=== PATIENT | male | born 1935 | race Caucasian/White ===

== ENCOUNTER 2018-06-10 19:03 | Inpatient (IN) ==
[2018-06-10] MEDS ORDERED: Pantoprazole 40 MG VIAL IVP ONE (19:26)
[2018-06-10] MEDS ORDERED: 0.9 % Sodium Chloride 1,000 ML IVC ONE (19:26)
--- NOTE | 2018-06-10 19:29 | Emergency Department Note ---
Disposition Clinical Impression: Melena, Elevated troponin Chest pain Qualifiers: Chest pain type: unspecified Qualified Code(s): R07.9 - Chest pain, unspecified GI bleed Qualifiers: GI bleed type/associated pathology: melena Qualified Code(s): K92.1 - Melena RLL pneumonia Qualifiers: Pneumonia type: due to unspecified organism Qualified Code(s): J18.1 - Lobar pneumonia, unspecified organism Anemia Qualifiers: Anemia type: unspecified type Qualified Code(s): D64.9 - Anemia, unspecified Disposition: Admitted As Inpatient Condition: Undetermined Time of Disposition: 20:48 General Adult HPI - General Chief complaint: ED GI Bleed Stated complaint: GI bleed Time Seen by Provider: 06/10/18 19:25 Source: patient, family, EMS Mode of arrival: EMS Limitations: no limitations Nursing Notes Reviewed: Yes Vital Signs Reviewed: Yes - History of Present Illness HPI Narrative: 83-year-old male with history of CAD, CABG 3 vessels, arrives to the emergency department with complaint of GI bleeding as well as chest pain or shortness of breath. The patient states that he feels short of breath and was having some chest pressure over the course the past 24 hours. The patient also states that he noted some black stools earlier today. The patient does have a history of GI bleed where he had a scope roughly 1 month ago with her unable to evaluate why he was bleeding. The patient was on Eliquis at that time. The patient was on L Oquist for previous DVTs. The patient denies any other complaints at this time and was a transfer from the [facility]. It was noted that the patient has been having increasing yellow sputum as well as cough. The patient states this is similar to previous pneumonias in the past. Chest x-ray at the [facility] reveals that a concerning finding for right lower lobe pneumonia. The patient has been noted to have a small amount chills. Patient was also noted to have an elevated troponin which is new for the patient. In addition the patient's hemoglobin is lower than it was roughly 10 days ago. The patient denies any active chest pain at this time. He is resting comfortably in the room. He is noted to be not hypoxic but he was noted to be on 2 L nasal cannula. Pain Scale: 2 - Related Data Home Medications Medication Instructions Recorded Confirmed Allopurinol [Zyloprim] 300 mg PO DAILY 05/29/18 06/10/18 Aspirin [Adult Aspirin Regimen] 81 mg PO DAILY 05/29/18 06/10/18 Atorvastatin [Lipitor] 10 mg PO HS 05/29/18 06/10/18 Cholecalciferol (D-3) [Vitamin D] 1,000 unit PO DAILY 05/29/18 06/10/18 Furosemide [Lasix] 20 mg PO DAILY 05/29/18 06/10/18 Metformin HCl [Glucophage] 1,000 mg PO BID 05/29/18 06/10/18 Allergies Allergy/AdvReac Type Severity Reaction Status Date / Time diazepam [From Valium] Allergy Intermediate Unresponsiv Verified 06/10/18 19:36 e Penicillins Allergy Mild Hives Verified 06/10/18 19:36 adhesive tape Allergy Hives Verified 06/10/18 19:36 apixaban Allergy Anaphylaxis Verified 06/10/18 19:36 budesonide Allergy Anaphylaxis Verified 06/10/18 19:36 secobarbital Allergy Anaphylaxis Verified 06/10/18 19:36 albuterol AdvReac Flushing Verified 06/10/18 19:36 All systems ED: reviewed and negative except as stated. Constitutional: Denies: fever, chills, weakness ENT ED: Denies: congestion Cardiovascular: Reports: chest pain. Denies: dyspnea on exertion, edema Respiratory: Reports: cough, dyspnea, sputum production. Denies: wheezes, hemoptysis Gastrointestinal: Denies: abdominal pain, nausea, vomiting Genitourinary: Denies: urgency, dysuria Musculoskeletal: Denies: back pain Integumentary: Denies: rash Neurological: Denies: headache Past Medical History - Past Medical History Attestation: Yes The following information was validated with the patient. Source: patient, old records reviewed Medical history: Reports: arthritis, cancer, COPD, coronary artery disease, DVT , diabetes, GERD, glaucoma, hyperlipidemia, hypertension, myocardial infarction , peripheral artery disease, TIA, other Surgical history: Reports: coronary bypass (CABG), pacemaker Psychiatric history: Reports: depression - Social History Smoking Status: Former smoker Smokeless Tobacco Status: No Alcohol use: Reports: rarely Drug use: Reports: none Physical Exam - General Limitations: no limitations General appearance: alert, in no apparent distress - Head Head exam: atraumatic, normocephalic, normal inspection - Eye Eye exam: Present: normal appearance, PERRL, EOMI - ENT ENT exam: normal exam, normal oropharynx, mucous membranes moist - Neck Neck exam: Present: normal inspection - Chest Chest inspection: Present: normal inspection - Respiratory Respiratory exam: Present: normal lung sounds bilaterally - Cardiovascular Cardiovascular exam: Present: regular rate, normal rhythm, normal heart sounds - Abdominal Exam Abdominal exam: Present: soft, Non-Tender. Absent: tenderness, distention, guarding, rebound, rigidity, pulsatile mass, hernia - Extremities Exam Extremities exam: Present: normal inspection, full ROM. Absent: tenderness, pedal edema - Neurological Exam Neurological exam: Present: alert, oriented X3 - Skin Skin exam: Present: warm, dry, intact, normal color Course - Consultations Consultation #1: We spoke with Dr. martin in endoscopy who stated that he will be consulted on the patient. No further recommend edition at this time other than discontinuing the patient's antiplatelets. Time: 20:27 Vital Signs Temperature 97.9 F 06/10/18 19:10 Pulse Rate 98 06/10/18 19:10 Respiratory Rate 20 06/10/18 19:10 Blood Pressure 128/84 06/10/18 19:10 O2 Sat by Pulse Oximetry 100 06/10/18 19:10 Temperature 97.5 F L 06/10/18 21:59 Pulse Rate 96 06/10/18 21:59 Respiratory Rate 16 06/10/18 21:59 Blood Pressure 123/76 06/10/18 21:59 O2 Sat by Pulse Oximetry 98 06/10/18 22:55 Oxygen Delivery Oxygen Delivery Nasal Cannula Medical Decision Making - [facility] Narrative Medical decision making narrative: Patient workup in the emergency department demonstrates anemia. The patient is expressing GI bleed. He is no longer any anticoagulants. The patient's troponin was noted be elevated here in the emergency department as well as the [facility]. The patient will be admitted to the hospital at this time. He was also treated with Levaquin due to concern for possible right lower lobe pneumonia noted on chest x-ray from outlying facility with his concomitant sputum production on physical examination and past history. The patient was discussed with Dr. Barajas who is director economic for endoscopy. He will be consulted on the patient. The patient is to be admitted to the hospitalist, accepted by Dr. Field. - Medical Records Medical records reviewed: Yes I reviewed the patient's medical records. - Lab Data Lab results reviewed: Yes I reviewed the patient's lab results. Result diagrams: 06/10/18 21:35 Lab Results 06/10/18 06/10/18 06/10/18 Range/Units 19:25 19:25 19:49 WBC (4.3-11.1) K/mcL RBC (4.19-5.50) M/mcL Hgb 7.3 L (12.9-16.9) g/dL Hct 24.2 L (37.5-50.1) % MCV (83.0-100.0) fL MCH (28.0-33.3) pg MCHC (31.6-35.5) g/dL RDW (11.5-14.5) % Plt Count (140-400) K/mcL MPV (9.4-12.4) fL Immature Gran % (0-4) % Seg Neutrophils % % Lymphocytes % % Monocytes % % Eosinophils % % Basophils % % Neutrophils # (1.6-8.9) K/mcL Lymphocytes # (0.6-4.6) K/mcL Monocytes # (0.0-1.3) K/mcL Eosinophils # (0.0-0.6) K/mcL Basophils # (0.0-0.2) K/mcL Troponin I 0.10 H* (< 0.04) ng/mL Blood Type AB POSITIVE Antibody Screen NEGATIVE 06/10/18 06/10/18 Range/Units 21:35 21:35 WBC 6.9 (4.3-11.1) K/mcL RBC 3.22 L (4.19-5.50) M/mcL Hgb 7.3 L (12.9-16.9) g/dL Hct 24.6 L (37.5-50.1) % MCV 76.4 L (83.0-100.0) fL MCH 22.7 L (28.0-33.3) pg MCHC 29.7 L (31.6-35.5) g/dL RDW 17.0 H (11.5-14.5) % Plt Count 178 (140-400) K/mcL MPV 10.1 (9.4-12.4) fL Immature Gran % 0.1 (0-4) % Seg Neutrophils % 72.5 % Lymphocytes % 16.5 % Monocytes % 8.8 % Eosinophils % 1.8 % Basophils % 0.3 % Neutrophils # 5.0 (1.6-8.9) K/mcL Lymphocytes # 1.1 (0.6-4.6) K/mcL Monocytes # 0.6 (0.0-1.3) K/mcL Eosinophils # 0.1 (0.0-0.6) K/mcL Basophils # 0.0 (0.0-0.2) K/mcL Troponin I 0.08 H* (< 0.04) ng/mL Blood Type Antibody Screen - EKG Data EKG #1 EKG attestation: Yes I reviewed and interpreted this EKG. EKG results narrative: Heart rate 104 beats for minute. Sinus tachycardia. Right bundle branch block noted. Nonspecific ST changes noted from EKG on 05/29/2018. No ST elevation or ST depression noted. Attestation Statement - Attestation Attestation: Dr Foreman note: Pt seen in conjunction w/ Resident DR Gordon; please see his charting for complete documentation; I agree w/ pt's treatment and disposition and spent face to face time w/ the pt; no indication for add'l treatment or eval @ this time; specialists informed of findings and hgb; pt is typed and crossed; improving Troponin per our lab; no chest pain at the time of our admission; vitals stable on admission;
[2018-06-10 20:07] LABS: Hematocrit 24.2 % (37.5-50.1); Hemoglobin 7.3 g/dL (12.9-16.9)
[2018-06-10] MEDS ORDERED: Levofloxacin 750 MG/150 ML 750 MG/150 ML BAG IVPB ONE (20:39)
[2018-06-10] MEDS ORDERED: Naloxone 0.4 MG/ML INJ IVP PRN (20:51)
[2018-06-10] MEDS ORDERED: GuaiFENesin Liq 200 MG/10 ML UDC PO PRN (21:27)
[2018-06-10] MEDS ORDERED: Benzonatate 100 MG CAPSULE PO PRN (21:28)
--- NOTE | 2018-06-10 21:39 | Internal Med History&Physical ---
Date of Encounter: 06/11/18 Time of Encounter: 21:30 Internal Medicine - H&P: HPI Chief complaint: Black stools today, shortness of breath History of present illness: Mr. Llanes is a 83 year old male with pmh of CAd, CABGx3, GI bleed, DVT on anticoagulation but stopped about a month ago due to GI bleed, post nasal drip, presenting with complaints of shortness of breath and chest pressure of about 24 -48hrs duration> patient notes he typically has a sensation of his bronchioles tightening up due to the fact that he has post nasal drip and this discomfort is usually relieved by benadryl and robitussin. He typically attributes this to his post nasal drip. He also notes he had dark stools about a month ago and was scoped at the [place] but says the source of his bleeding could not be located. He presented today with shortness of breath, admits to mild coughing, denies any history of COPD. He also noted dark stools today of about 2 episodes. In the ER, his hemoglobin was noted to be 7.3 down from 9.1 on his last discharge. [facility] also showed findings suspicious for pneumonia Past Med Surg Social Fam HX - Past Medical History Medical history: arthritis, cancer, COPD, coronary artery disease, DVT, diabetes , GERD, glaucoma, hyperlipidemia, hypertension, myocardial infarction, peripheral artery disease, TIA, other Additional medical history: MRSA. Neoplasm of ascending colon Psychiatric history: depression - Past Surgical History Surgical History: coronary bypass (CABG), pacemaker Additional surgical history: [place] Filter, fem pop right leg, broken left ankle, bone spur and cyst left foot, neck and back surgeries - Social History Smoking Status: Former smoker Smokeless Tobacco Status: No Alcohol use: rarely Drug use: none - Family History Father Adopted: No Family Member Ethnicity: Non- Living Status: Hx Family Cardiac Disorders: Yes Hx Family Respiratory Disorders: No Hx Family Cancer: No Hx Family GI Disorders: No Hx Family Endocrine Disorder: No Hx Family Neuromuscular Disorders: No Hx Family Neurologic Disorders: No Hx Family HEENT Disorders: No Hx Family Autoimmune Disorders: No Mother Family Member Ethnicity: Non- Living Status: Hx Family Cardiac Disorders: Yes Internal Medicine - H&P: Meds Allopurinol [Zyloprim] 300 mg PO DAILY 05/29/18 [History] Aspirin [Adult Aspirin Regimen] 81 mg PO DAILY 05/29/18 [History] Atorvastatin [Lipitor] 10 mg PO HS 05/29/18 [History] Cholecalciferol (D-3) [Vitamin D] 1,000 unit PO DAILY 05/29/18 [History] Furosemide [Lasix] 20 mg PO DAILY 05/29/18 [History] Metformin HCl [Glucophage] 1,000 mg PO BID 05/29/18 [History] 3 Allergy/AdvReac Type Severity Reaction Status Date / Time diazepam [From Valium] Allergy Intermediate Unresponsiv Verified 06/10/18 19:36 e Penicillins Allergy Mild Hives Verified 06/10/18 19:36 adhesive tape Allergy Hives Verified 06/10/18 19:36 apixaban Allergy Anaphylaxis Verified 06/10/18 19:36 budesonide Allergy Anaphylaxis Verified 06/10/18 19:36 secobarbital Allergy Anaphylaxis Verified 06/10/18 19:36 albuterol AdvReac Flushing Verified 06/10/18 19:36 All Systems PM: A 10-system review of systems was performed and is negative for pertinent findings except as documented above in the HPI. - Constitutional Constitutional: no chills, no fever(s), no night sweats - EENT Eyes: no change in vision, no discharge, no pain, no photophobia Ears: no ear discharge, no ear pain, no tinnitus Nose, mouth and throat: no dysphagia, no nasal discharge, no neck pain, no sore throat - Cardiovascular Cardiovascular ROS IM: no chest pain, no diaphoresis, no dyspnea, no lightheadedness, no palpitations, no syncope - Respiratory Respiratory: dyspnea, no cough, no wheezing, no excessive phlegm production - Gastrointestinal Gastrointestinal: melena, no abdominal pain, no diarrhea, no hematemesis, no hematochezia, no nausea, no vomiting - Musculoskeletal Musculoskeletal ROS IM: no numbness, no tingling - Integumentary Integumentary IM: no rash, no unusual bruising - Neurological Neurological ROS: no confusion, no convulsions, no focal weakness, no numbness, no tingling, no tremor(s) - Hematologic/Lymphatic Hematologic/Lymphatic: no easy bruising - Constitutional Vitals: Temp Pulse Resp BP Pulse Ox 97.9 F 105 18 121/81 100 06/10/18 19:10 06/10/18 21:15 06/10/18 21:15 06/10/18 21:15 06/10/18 21:15 - Head Head exam: Present: atraumatic, normocephalic - Eye Eye exam: Present: PERRL, conjuntiva pink, sclera anicteric Pupils: Present: PERRL - Neck Neck exam general surgery: Present: supple, trachea midline. Absent: lymphadenopathy - Respiratory Respiratory exam: Present: CTAB. Absent: accessory muscle use, rales, rhonchi, wheezes - Cardiovascular Cardiovascular exam: Present: RRR, +S1, +S2. Absent: diastolic murmur, gallop, rubs, systolic murmur - GI/Abdominal GI/Abdominal exam: Present: normal bowel sounds, soft, no peritoneal signs. Absent: distended, tenderness - Extremities Exam Extremities exam: Present: warm, radial pulses palpable and symmetrical. Absent : calf tenderness, cyanotic, pedal edema - Neurological Exam Neurological exam: Present: CN II-XII intact, oriented X3, no focal deficits. Absent: pronater drift, facial droop, speech deficit - Skin Skin exam: Present: dry, intact Internal Med - H&P Results - Labs CBC & Chem 7: 06/11/18 03:14 06/11/18 03:14 - Assessment and plan (1) Acute upper gastrointestinal bleeding Current Visit: Yes Status: Acute Assessment and plan: Pt had 2 episodes of dark stools with drop in hemoglobin from baseline. Hemoglobin dropped from 9.1 to 7.3 in about 2 weeks. Start on protonix BID. Montior CBC q 12hrs. Will hydrate cautiously in light of history of low EF of 50 %. Hold aspirin (2) Community acquired pneumonia Current Visit: Yes Status: Acute Assessment and plan: CXR from [place] showed pneumonia. Repeat CXR, start on levaquin, obtain blood cultures Qualifiers: Laterality: unspecified laterality Qualified Code(s): J18.9 - Pneumonia, unspecified organism (3) Elevated troponin Current Visit: Yes Status: Acute Assessment and plan: Likely demand ischemia. Trend troponins. (4) Diabetes Current Visit: No Status: Acute Assessment and plan: Will start on sliding scale. Monitor fingersticks Qualifiers: Qualified Code(s): E11.9 - Type 2 diabetes mellitus without complications (5) CAD (coronary artery disease) Current Visit: No Status: Acute Assessment and plan: CAD s/p CABG. Hold aspirin. Continue statin Qualifiers: Coronary Disease-Associated Artery/Lesion type: unspecified vessel or lesion type [place] vs. transplanted heart: [place] heart Associated angina: angina presence unspecified Qualified Code(s): I25.10 - Atherosclerotic heart disease of [place] coronary artery without angina pectoris (6) CHF (congestive heart failure) Current Visit: No Status: Acute Assessment and plan: Has diastolic CHF with Ef of 50%. Hold lasix due to borderline hypotension and tachycardia Qualifiers: Heart failure type: diastolic Heart failure chronicity: acute on chronic Qualified Code(s): I50.33 - Acute on chronic diastolic (congestive) heart failure (7) DVT prophylaxis Current Visit: No Status: Acute Assessment and plan: SCDS (8) Coughing Current Visit: Yes Status: Acute Assessment and plan: With history of post nasal drip. On benadryl, tesselon perles and benadryl prn - Time Spent With Patient Total time spent is greater than 50% in coordination of care (as documented) at patient's floor/unit and/or counseling patient:
[2018-06-10] MEDS ORDERED: Ipratropium/Albuterol Neb 3 ML IH PRN (21:56)
[2018-06-10] MEDS ORDERED: 0.9 % Sodium Chloride 1,000 ML IVC SCH (22:00)
[2018-06-10] MEDS ORDERED: *HR* Dextrose 50 % in Water (Syg) 50 ML SYRINGE IVP PRN (22:00)
[2018-06-10] MEDS ORDERED: Dextrose Gel 15 GM/37.5 ML TUBE PO PRN ×2 (22:00)
[2018-06-10] MEDS ORDERED: D5% in Water 1,000 ML IVC PRN (22:00)
[2018-06-10 22:22] LABS: Basophils % 0.3 %; Eosinophils # 0.1 K/mcL (0.0-0.6); Eosinophils % 1.8 %; Hematocrit 24.6 % (37.5-50.1); Hemoglobin 7.3 g/dL (12.9-16.9); Immature Granulocytes % 0.1 % (0-4); Lymphocytes # 1.1 K/mcL (0.6-4.6); Lymphocytes % 16.5 %; Mean Corpuscular HGB Conc 29.7 g/dL (31.6-35.5); Mean Corpuscular Hemoglobin 22.7 pg (28.0-33.3); Mean Corpuscular Volume 76.4 fL (83.0-100.0); Mean Platelet Volume 10.1 fL (9.4-12.4); Monocytes # 0.6 K/mcL (0.0-1.3); Monocytes % 8.8 %; Platelet Count 178 K/mcL (140-400); Red Blood Count 3.22 M/mcL (4.19-5.50); Segmented Neutrophils % 72.5 %
[2018-06-10] MEDS: Insulin LISPRO 300 UNITS/3 ML VIAL SQ SCH (22:49)
[2018-06-11 04:02] LABS: Basophils % 0.6 %; Eosinophils # 0.1 K/mcL (0.0-0.6); Eosinophils % 1.6 %; Hematocrit 24.2 % (37.5-50.1); Hemoglobin 7.1 g/dL (12.9-16.9); Immature Granulocytes % 0.4 % (0-4); Lymphocytes # 0.9 K/mcL (0.6-4.6); Lymphocytes % 18.1 %; Mean Corpuscular HGB Conc 29.3 g/dL (31.6-35.5); Mean Corpuscular Hemoglobin 22.3 pg (28.0-33.3); Mean Corpuscular Volume 76.1 fL (83.0-100.0); Mean Platelet Volume 10.6 fL (9.4-12.4); Monocytes # 0.4 K/mcL (0.0-1.3); Monocytes % 8.7 %; Neutrophils # 3.5 K/mcL (1.6-8.9); Platelet Count 172 K/mcL (140-400); Red Blood Count 3.18 M/mcL (4.19-5.50); Red Cell Distribution Width 17.1 % (11.5-14.5); Segmented Neutrophils % 70.6 %
[2018-06-11 04:09] LABS: INR 1.2; Prothrombin Time 13.4 Seconds (9.4-12.1)
[2018-06-11 04:15] LABS: BUN/Creatinine Ratio 16 (6-26); Blood Urea Nitrogen 16 mg/dL (8-23); Carbon Dioxide 23 mEq/L (23-29); Chloride 108 mEq/L (98-107); Glucose 171 mg/dL (70-105); Osmolality,Calculated 289 (280-300); Phosphorous 3.3 mg/dL (2.7-4.5); Potassium 4.7 mEq/L (3.5-5.1); Sodium 137 mEq/L (136-145); eGFR For Non-African Americans > 60 (> 60)
[2018-06-11] MEDS: Pantoprazole 40 MG VIAL IVP SCH ×2 (04:59→17:00)
[2018-06-11] MEDS ORDERED: Furosemide 40 MG/4 ML VIAL IVP ONE (07:39)
[2018-06-11] MEDS ORDERED: Furosemide 20 MG TABLET PO SCH (08:00)
[2018-06-11] MEDS: Cholecalciferol (D-3) 1,000 UNIT TABLET PO SCH (08:01)
[2018-06-11] MEDS: Insulin LISPRO 300 UNITS/3 ML VIAL SQ SCH ×4 (08:03→22:05)
[2018-06-11] MEDS ORDERED: 0.9 % Sodium Chloride 250 ML ONE ×2 (08:48→13:32)
[2018-06-11 08:49] LABS: Basophils % 0.5 %; Eosinophils # 0.1 K/mcL (0.0-0.6); Eosinophils % 1.8 %; Hematocrit 24.4 % (37.5-50.1); Hemoglobin 7.3 g/dL (12.9-16.9); Immature Granulocytes % 0.3 % (0-4); Lymphocytes % 15.9 %; Mean Corpuscular HGB Conc 29.9 g/dL (31.6-35.5); Mean Corpuscular Hemoglobin 22.1 pg (28.0-33.3); Mean Corpuscular Volume 73.9 fL (83.0-100.0); Mean Platelet Volume 9.4 fL (9.4-12.4); Monocytes # 0.5 K/mcL (0.0-1.3); Monocytes % 7.9 %; Neutrophils # 4.6 K/mcL (1.6-8.9); Platelet Count 172 K/mcL (140-400); Red Cell Distribution Width 17.3 % (11.5-14.5); Segmented Neutrophils % 73.6 %
[2018-06-11] MEDS ORDERED: Aspirin Enteric Coated 81 MG Tablet PO SCH (09:00)
--- NOTE | 2018-06-11 12:03 | Internal Med Progress Note ---
Hospitalist Progress Note - Encounter Date of Encounter: 06/11/18 Time of Encounter: 12:01 - Subjective Interval History: 83 M with medical history of diastolic CHF, chronic elevated troponin, atrial flutter, coronary artery disease not on anticoagulation due to previous GI bleed , DVT He is admitted and being managed for acute on chronic anemia likely secondary to GI bleed, COPD exacerbation and pulmonary edema, as well as pneumonia. The patient has symptomatic anemia presented with shortness of breath, and chest pressure with hemoglobin dropped to 7.3 from 9.1 on his last discharge Endorsed passage of black stools, GI has been consulted by the admitting team. My time of evaluation, he remains tachycardic blood pressure is low normal He denies new complaints. - Exam Vitals: Temp Pulse Resp BP Pulse Ox 98.1 F 114 16 122/74 97 06/11/18 10:59 06/11/18 10:59 06/11/18 10:59 06/11/18 10:59 06/11/18 10:59 Exam: VSS, HR 105. BP WNL Gen: not in any form of distress Neuro: No focal deficits HEENT: Moist oral mucosa, anicteric, clinically pale, no cyanosis Chest: Bibasilar crackles, no wheezing, no rhonchi Heart: S1, S2 only, no m/g/r, no JVD Abdomen: Soft, not tender, no palpably enlarged organs Extremities: No edema Skin: RLE loera rash, non-weeping, [id number] patient "this is diabetic sugar rash" - Assessment and Plan (1) Elevated troponin Current Visit: Yes Status: Chronic Assessment and Plan: Likely demand ischemia. Trend troponins. Adynamic and at 0.08, continue to monitor (2) CHF (congestive heart failure) Current Visit: Yes Status: Acute Assessment and Plan: Has diastolic CHF with Ef of 50%. CXR with intersititial edema BNP not done in this admission Patient has crackles on exam and is requiring supplemental O2 Will resume home lasix IV Additional lasix given inbetween blood transfusions Continue to monitor (3) CAD (coronary artery disease) Current Visit: Yes Status: Chronic Assessment and Plan: CAD s/p CABG. Hold aspirin. Continue statin (4) Diabetes Current Visit: Yes Status: Chronic Assessment and Plan: SSI. Monitor fingersticks (5) DVT prophylaxis Current Visit: Yes Status: Acute Assessment and Plan: SCDS (6) Acute upper gastrointestinal bleeding Current Visit: Yes Status: Acute Assessment and Plan: Pt had 2 episodes of dark stools with drop in hemoglobin from baseline. Hemoglobin dropped from 9.1 to 7.3 in about 2 weeks. Continue protonix BID. Continue to Montior CBC q 12hrs. W Hold IVF due to CHF Transfuse with 2 units RBCs due to symptomatic anemia with tachycardia, CHF and elevated troponin GI eval requested and pending (7) Community acquired pneumonia Current Visit: Yes Status: Acute Assessment and Plan: CXR from [place] showed pneumonia. CXR here noted for L retrocardic opacity Patient with recent hospitalization, low risk for MRSA Continue levaquin Continue to monitor Follow blood cultures (8) Coughing Current Visit: Yes Status: Acute Assessment and Plan: With history of post nasal drip. continue home meds, currently with PNA (9) Atrial flutter Current Visit: Yes Status: Chronic Assessment and Plan: continue home meds, not on a/c due to GIB (10) HLD (hyperlipidemia) Current Visit: Yes Status: Chronic Assessment and Plan: continue home meds (11) HTN (hypertension) Current Visit: Yes Status: Chronic Assessment and Plan: continue home meds - Time Spent with Patient Total time spent is greater than 50% in coordination of care (as documented) at patient's floor/unit and/or counseling patient: Plan of Care Discussed with: patient Internal Medicine: Result - Labs CBC & Chem 7: 06/11/18 08:39 06/11/18 03:14 Labs: Short CBC 06/11/18 06/11/18 Range/Units 03:14 08:39 WBC 4.9 6.2 (4.3-11.1) K/mcL Hgb 7.1 L 7.3 L (12.9-16.9) g/dL Hct 24.2 L 24.4 L (37.5-50.1) % Plt Count 172 172 (140-400) K/mcL Neutrophils # 3.5 4.6 (1.6-8.9) K/mcL BMP 06/11/18 03:14 Sodium 137 Potassium 4.7 Chloride 108 H Carbon Dioxide 23 BUN 16 Creatinine 1.00 Glucose 171 H Calcium 9.0 Cardiac Enzymes 06/11/18 Range/Units 03:14 Troponin I 0.08 H* (< 0.04) ng/mL - ABG Interpretation ABG results: PT/INR, D-dimer PT 13.4 Seconds (9.4-12.1) H 06/11/18 03:14 Consult Discharge Plan - Plan [facility]: [facility] [Primary Care Provider[facility] - (2) CHF (congestive heart failure) Qualifiers: Heart failure type: diastolic Heart failure chronicity: acute on chronic Qualified Code(s): I50.33 - Acute on chronic diastolic (congestive) heart failure (3) CAD (coronary artery disease) Qualifiers: Coronary Disease-Associated Artery/Lesion type: unspecified vessel or lesion type [place] vs. transplanted heart: [place] heart Associated angina: angina presence unspecified Qualified Code(s): I25.10 - Atherosclerotic heart disease of [place] coronary artery without angina pectoris (4) Diabetes Qualifiers: Diabetes mellitus type: type 2 Diabetes mellitus longterm insulin use: without intermediate accountant use Diabetes mellitus complication status: with skin complications Diabetes mellitus complication detail: with dermatitis Qualified Code(s): E11.620 - Type 2 diabetes mellitus with diabetic dermatitis (7) Community acquired pneumonia Qualifiers: Laterality: unspecified laterality Qualified Code(s): J18.9 - Pneumonia, unspecified organism (9) Atrial flutter Qualifiers: Atrial flutter type: unspecified Qualified Code(s): I48.92 - Unspecified atrial flutter (10) HLD (hyperlipidemia) Qualifiers: Hyperlipidemia type: unspecified Qualified Code(s): E78.5 - Hyperlipidemia, unspecified (11) HTN (hypertension) Qualifiers: Hypertension type: essential hypertension Qualified Code(s): I10 - Essential (primary) hypertension
--- NOTE | 2018-06-11 13:14 | Gastroenterology Consult Note ---
<Kaylie Coleman - Last Filed: 06/11/18 13:12> Date of Encounter: 06/11/18 Time of Encounter: 11:00 - Assessment and plan (1) Anemia Current Visit: Yes Status: Acute Assessment and plan: Recent EGD/colon at [facility], will repeat tomorrow to rule out esophagitis, gastritis , duodenitis, pUD, MW tear, AVM or malignancy. Risks and benefits explained and pt verbalies understanding. Qualifiers: Anemia type: unspecified type Qualified Code(s): D64.9 - Anemia, unspecified (2) GI bleed Current Visit: Yes Status: Acute Qualifiers: GI bleed type/associated pathology: melena Qualified Code(s): K92.1 - Melena - Time Spent With Patient Total time spent is greater than 50% in coordination of care (as documented) at patient's floor/unit and/or counseling patient: GI History of Present Illness - Data of Consult Patient: new to practice Consult date: 06/11/18 Requesting Physician: Alvaro Mayorga MD - Consult Narrative Reason for consult: anemia/melena History of present illness: Mr. Llanes is a 83 year old male with pmh of colon cancer, pacemaker, CAd, CABGx3, GI bleed, DVT, on anticoagulation but stopped about a month ago due to GI bleed. He states he had increased weakness, fatigue and dyspnea on exertion. He was found to be anemic and had EGD/colonoscopy at the [facility] in April which did not show the source of bleeding. He denies abdominal pain, nausea or vomiting. He denies diarrhea but does complain of some constipation.Patient was admitted on 05/29 with chest pain can and treated for congestive heart failure discharged on 06/01. He presented yesterday with shortness of breath, and 2 episodes of dark stools. In the ER, his hemoglobin was noted to be 7.3 down from 9.1 on his last discharge. Chest xray showed interstitial edema and pneumonia. nsaids: asa 81 mg anticoagulants: on hold for the past month EGD/colon; 04/28 normal per pt Past Med Surg Social Fam HX - Past Medical History Medical history: arthritis, cancer, COPD, coronary artery disease, DVT, diabetes , GERD, glaucoma, hyperlipidemia, hypertension, myocardial infarction, peripheral artery disease, TIA, other Additional medical history: MRSA. Neoplasm of ascending colon Psychiatric history: depression - Past Surgical History Surgical History: coronary bypass (CABG), pacemaker Additional surgical history: [place] Filter, fem pop right leg, broken left ankle, bone spur and cyst left foot, neck and back surgeries - Social History Smoking Status: Former smoker Smokeless Tobacco Status: No Alcohol use: rarely Drug use: none - Family History Father Adopted: No Family Member Ethnicity: Non- Living Status: Hx Family Cardiac Disorders: Yes Hx Family Respiratory Disorders: No Hx Family Cancer: No Hx Family GI Disorders: No Hx Family Endocrine Disorder: No Hx Family Neuromuscular Disorders: No Hx Family Neurologic Disorders: No Hx Family HEENT Disorders: No Hx Family Autoimmune Disorders: No Mother Family Member Ethnicity: Non- Living Status: Hx Family Cardiac Disorders: Yes Review of Systems: GI: as per [facility]: denies fever, has some chills EYES: denies yellow discoloration ENT: denies pain with swallowing or difficulty swallowing CARDIO: denies chest pain, palpitations RESP: Shortness of breath with exertion : denies change in color of urine NEURO: increased weakness HEME: Denies any bruising MS: chronic back and joint pain. DERM: denies rash or itching PSYCH: history of anxiety and depression - Constitutional Vitals: Temp Pulse Resp BP Pulse Ox 98.1 F 114 16 122/74 97 06/11/18 10:59 06/11/18 10:59 06/11/18 10:59 06/11/18 10:59 06/11/18 10:59 Exam: CONSTITUTIONAL:~alert, no acute distress.~HEAD:~normocephalic.~EYES:~no jaundice.~NECK:~no obvious swelling.~HEART:~regular rate and rhythm, no murmurs , pacemaker in place, .~LUNGS:~bilateral fair air entry.~ABDOMEN:~non distended , soft, tender mid abdominal area, no masses palpable, no organomegaly.~RECTAL EXAM:~Deferred.~EXTREMITIES:~no clubbing, or cyanosis, trace BLE edema.~SKIN:~ pallor noted, no stigmata of chronic liver disease.~NEUROLOGIC:~no obvious focal defect.~~~~ Results - Labs CBC & Chem 7: 06/11/18 08:39 06/11/18 03:14 Labs: Last Result Calcium 9.0 mg/dL (8.6-10.3) 06/11/18 03:14 Troponin I 0.08 ng/mL (< 0.04) H* 06/11/18 03:14 Entire Visit Hgb 7.3 g/dL (12.9-16.9) L 06/11/18 08:39 Hct 24.4 % (37.5-50.1) L 06/11/18 08:39 PT 13.4 Seconds (9.4-12.1) H 06/11/18 03:14 - ABG ABG results: PT/INR, D-dimer PT 13.4 Seconds (9.4-12.1) H 06/11/18 03:14 Consult Discharge Plan - Plan [facility]errals: [facility] [Primary Care Provider[facility] - <Gianni Murray - Last Filed: 06/11/18 18:13> Date of Encounter: 06/11/18 Time of Encounter: 18:00 - Time Spent With Patient Total time spent is greater than 50% in coordination of care (as documented) at patient's floor/unit and/or counseling patient: GI History of Present Illness - Data of Consult Requesting Physician: Alvaro Mayorga MD - Consult Narrative History of present illness: Mr. Llanes is a 83 year old male - Constitutional Vitals: Temp Pulse Resp BP Pulse Ox 98.5 F 101 16 113/71 97 06/11/18 15:44 06/11/18 15:44 06/11/18 15:44 06/11/18 15:44 06/11/18 15:44 Results - Labs CBC & Chem 7: 06/11/18 08:39 06/11/18 03:14 Labs: Last Result Calcium 9.0 mg/dL (8.6-10.3) 06/11/18 03:14 Troponin I 0.08 ng/mL (< 0.04) H* 06/11/18 03:14 Entire Visit Hgb 7.3 g/dL (12.9-16.9) L 06/11/18 08:39 Hct 24.4 % (37.5-50.1) L 06/11/18 08:39 PT 13.4 Seconds (9.4-12.1) H 06/11/18 03:14 - ABG ABG results: PT/INR, D-dimer PT 13.4 Seconds (9.4-12.1) H 06/11/18 03:14 - Attending Attestation I have personally performed a face to face evaluation on this patient. I have reviewed and agree with the care plan. History and Exam by me shows: Patient seen patient with recurrent melena and previous workup at the [facility] has been unremarkable. No abdominal pain. Assessment: Patient with recurrent melena with anemia. Recommendation: Enteroscopy and colonoscopy and if negative then capsule endoscopy as an outpatient
[2018-06-11] MEDS: Furosemide 20 MG/2 ML VIAL IVP ONE (13:29)
[2018-06-11] MEDS ORDERED: SODIUM CHLORIDE/NAHCO3/KCL/PEG 4,000 ML SOLN.RECON PO ONE (17:00)
--- NOTE | 2018-06-11 20:27 | Electrocardiograph Report ---
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 : 1935 Requested By: Chuck Gordon Order Number: [id number] Reading MD: Karen Prince Measurements Intervals [place] Rate: 104 P: -57 ME: 206 QRS: -53 QRSD: 141 T: 63 QT: 409 QTc: 469 Interpretive Statements SINUS TACHYCARDIA RIGHT BUNDLE BRANCH BLOCK [120+ ms QRS DURATION, UPRIGHT V1, 40+ ms S IN I/aVL/V4/V5/V6] LEFT ANTERIOR FASCICULAR BLOCK [QRS AXIS <= -45, QR IN I, RS IN II] ANTERIOR MYOCARDIAL INFARCTION [40+ ms Q WAVE AND/OR ST/T ABNORMALITY IN V3/V4], OF INDETERMINATE AGE INFERIOR MYOCARDIAL INFARCTION [40+ ms Q WAVE AND/OR ST/T ABNORMALITY IN II/aVF], PROBABLY OLD Electronically Signed On 06-11-2018 17:07:18 EDT by Karen Prince
[2018-06-11] MEDS ORDERED: Levofloxacin 750 MG/150 ML 750 MG/150 ML BAG IVPB SCH (21:00)
[2018-06-11 21:58] LABS: Basophils % 0.4 %; Eosinophils # 0.1 K/mcL (0.0-0.6); Eosinophils % 1.8 %; Hematocrit 28.1 % (37.5-50.1); Immature Granulocytes % 0.4 % (0-4); Lymphocytes # 0.8 K/mcL (0.6-4.6); Lymphocytes % 11.1 %; Mean Corpuscular Hemoglobin 24.5 pg (28.0-33.3); Mean Corpuscular Volume 76.6 fL (83.0-100.0); Mean Platelet Volume 10.4 fL (9.4-12.4); Monocytes # 0.8 K/mcL (0.0-1.3); Monocytes % 11.4 %; Neutrophils # 5.1 K/mcL (1.6-8.9); Platelet Count 178 K/mcL (140-400); Red Blood Count 3.67 M/mcL (4.19-5.50); Red Cell Distribution Width 18.1 % (11.5-14.5); Segmented Neutrophils % 74.9 %
[2018-06-12 04:50] LABS: BUN/Creatinine Ratio 13 (6-26); Blood Urea Nitrogen 13 mg/dL (8-23); Calcium 8.8 mg/dL (8.6-10.3); Carbon Dioxide 21 mEq/L (23-29); Chloride 104 mEq/L (98-107); Glucose 170 mg/dL (70-105); Osmolality,Calculated 286 (280-300); Potassium 3.8 mEq/L (3.5-5.1); Sodium 136 mEq/L (136-145); eGFR For Non-African Americans > 60 (> 60)
[2018-06-12] MEDS: Pantoprazole 40 MG VIAL IVP SCH ×2 (05:27→17:18)
[2018-06-12] MEDS: Furosemide 20 MG/2 ML VIAL IVP ONE (07:37)
[2018-06-12] MEDS: Furosemide 20 MG TABLET PO SCH (07:48)
[2018-06-12] MEDS: Insulin LISPRO 300 UNITS/3 ML VIAL SQ SCH ×3 (07:48→17:19)
[2018-06-12] MEDS: Cholecalciferol (D-3) 1,000 UNIT TABLET PO SCH (07:48)
[2018-06-12 08:26] LABS: Basophils % 0.5 %; Eosinophils # 0.1 K/mcL (0.0-0.6); Eosinophils % 2.6 %; Hematocrit 28.4 % (37.5-50.1); Hemoglobin 8.7 g/dL (12.9-16.9); Immature Granulocytes % 0.2 % (0-4); Lymphocytes # 0.8 K/mcL (0.6-4.6); Lymphocytes % 13.7 %; Mean Corpuscular HGB Conc 30.6 g/dL (31.6-35.5); Mean Corpuscular Hemoglobin 23.8 pg (28.0-33.3); Mean Corpuscular Volume 77.8 fL (83.0-100.0); Mean Platelet Volume 9.3 fL (9.4-12.4); Monocytes # 0.5 K/mcL (0.0-1.3); Monocytes % 9.9 %; Platelet Count 159 K/mcL (140-400); Red Blood Count 3.65 M/mcL (4.19-5.50); Red Cell Distribution Width 17.9 % (11.5-14.5); Segmented Neutrophils % 73.1 %
--- NOTE | 2018-06-12 13:23 | Anesthesia Evaluation PreOp ---
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 FINANCIAL History: Denies Any Significant HX Other Medical History: Bleeding (Nasal bleed, jacky, anemia, admitted with Hb 7.3, post 2 units PRBC), Diabetes Type II, GERD (Post [place] Fundoplication), Other Anesthesia History: No Prior Anesthetic Complications, Past Anesthesia Alcohol Use: rarely Drug use: none Medications and Allergies Allopurinol [Zyloprim] 300 mg PO DAILY 05/29/18 [History] Aspirin [Adult Aspirin Regimen] 81 mg PO DAILY 05/29/18 [History] Atorvastatin [Lipitor] 10 mg PO HS 05/29/18 [History] Cholecalciferol (D-3) [Vitamin D] 1,000 unit PO DAILY 05/29/18 [History] Furosemide [Lasix] 20 mg PO DAILY 05/29/18 [History] Metformin HCl [Glucophage] 1,000 mg PO BID 05/29/18 [History] 3 Allergy/AdvReac Type Severity Reaction Status Date / Time diazepam [From Valium] Allergy Intermediate Unresponsiv Verified 06/10/18 19:36 e Penicillins Allergy Mild Hives Verified 06/10/18 19:36 adhesive tape Allergy Hives Verified 06/10/18 19:36 apixaban Allergy Anaphylaxis Verified 06/10/18 19:36 budesonide Allergy Anaphylaxis Verified 06/10/18 19:36 secobarbital Allergy Anaphylaxis Verified 06/10/18 19:36 albuterol AdvReac Flushing Verified 06/10/18 19:36 - Meds/Allergy Pre-op Review Medications Reviewed: Yes Allergies Reviewed: Yes Anesthesia Results - Labs 06/12/18 08:15 06/12/18 04:05 Laboratory Tests 06/10/18 19:25 Troponin I 0.10 H* - Imaging Additional studies: EKG 06/10/2018: SINUS TACHYCARDIA RIGHT BUNDLE BRANCH BLOCK [120+ ms QRS DURATION, UPRIGHT V1, 40+ ms S IN I/aVL/V4/V5/V6] LEFT ANTERIOR FASCICULAR BLOCK [QRS AXIS <= -45, QR IN I, RS IN II] ANTERIOR MYOCARDIAL INFARCTION [40+ ms Q WAVE AND/OR ST/T ABNORMALITY IN V3/V4], OF INDETERMINATE AGE INFERIOR MYOCARDIAL INFARCTION [40+ ms Q WAVE AND/OR ST/T ABNORMALITY IN II/aVF], PROBABLY OLD Anesthesia Exam Vital Signs/O2 Sat/Glucose, Most Recent Temp Pulse Resp BP Pulse Ox 97.6 F 114 18 137/80 96 06/12/18 13:03 06/12/18 13:03 06/12/18 13:03 06/12/18 13:03 06/12/18 13:03 Blood Glucose* 150 Height: 73 in Weight: 91 kg - BMI 27 NPO (# of Hours): 8 - HEENT Mallampati: II Teeth: Edentulous Oral Opening: Greater than 3 - Cardiac Rhythm: Regular (Tachycardic) - Pulmonary Breath Sounds: bilateral Clear Anesthesia Assess/Plan ASA Score: 4 Modified Matti Scale for Level of Consciousness: Cooperative, oriented, and tranquil Anesthetic Plan: MAC Monitoring Plan: Standard Monitors Recovery Plan: Other
[2018-06-12] MEDS ORDERED: Propofol 500 MG/50 ML INFUS..BTL ONE (13:27)
--- NOTE | 2018-06-12 13:43 | Internal Med Progress Note ---
Hospitalist Progress Note - Encounter Date of Encounter: 06/12/18 Time of Encounter: 11:00 - Subjective Interval History: 83 M with medical history of diastolic CHF, chronic elevated troponin, atrial flutter, coronary artery disease not on anticoagulation due to previous GI bleed , DVT He is admitted and being managed for acute on chronic anemia likely secondary to GI bleed, COPD exacerbation and pulmonary edema, as well as pneumonia. He is s/p 2 units RBCS Hb today 8.7. Patient remains tachycardic No new complains Awaiting EGD/Colonoscopy today - Exam Vitals: Temp Pulse Resp BP Pulse Ox 97.6 F 114 18 137/80 96 06/12/18 13:03 06/12/18 13:03 06/12/18 13:03 06/12/18 13:03 06/12/18 13:03 Exam: VSS, HR 90-100. BP WNL Gen: not in any form of distress Neuro: No focal deficits HEENT: Moist oral mucosa, anicteric, clinically pale, no cyanosis Chest: Bibasilar crackles, no wheezing, no rhonchi Heart: S1, S2 only, no m/g/r, no JVD Abdomen: Soft, not tender, no palpably enlarged organs Extremities: No edema Skin: RLE loera rash, non-weeping, [id number] patient "this is diabetic sugar rash" - Assessment and Plan (1) Elevated troponin Current Visit: Yes Status: Chronic Assessment and Plan: Likely demand ischemia. Trend troponins. Adynamic and at 0.08, continue to monitor (2) CHF (congestive heart failure) Current Visit: Yes Status: Acute Assessment and Plan: Has diastolic CHF with Ef of 50%. CXR with intersititial edema BNP not done in this admission Patient had crackles on exam 06/11 and is requiring supplemental O2 Chest exam and air entry today improved. Patient no longer requiring oxygen supplement Positive fluid balance line continue Lasix at home dose (3) CAD (coronary artery disease) Current Visit: Yes Status: Chronic Assessment and Plan: CAD s/p CABG. Hold aspirin. Continue statin (4) Diabetes Current Visit: Yes Status: Chronic Assessment and Plan: SSI. Monitor fingersticks (5) DVT prophylaxis Current Visit: Yes Status: Acute Assessment and Plan: SCDS (6) Acute upper gastrointestinal bleeding Current Visit: Yes Status: Acute Assessment and Plan: Pt had 2 episodes of dark stools with drop in hemoglobin from baseline. Hemoglobin dropped from 9.1 to 7.3 in about 2 weeks. Continue protonix BID. Status post 2 units RBCs Continue to monitor hemoglobin EGD and colonoscopy today GI evaluation appreciated. (7) Community acquired pneumonia Current Visit: Yes Status: Acute Assessment and Plan: CXR from [place] showed pneumonia. CXR here noted for L retrocardic opacity Patient with recent hospitalization, low risk for MRSA Continue levaquin-day2 Continue to monitor Follow blood cultures (8) Coughing Current Visit: Yes Status: Acute (9) Atrial flutter Current Visit: Yes Status: Chronic Assessment and Plan: continue home meds, not on a/c due to GIB (10) HLD (hyperlipidemia) Current Visit: Yes Status: Chronic Assessment and Plan: continue home meds (11) HTN (hypertension) Current Visit: Yes Status: Chronic Assessment and Plan: continue home meds - Time Spent with Patient Total time spent is greater than 50% in coordination of care (as documented) at patient's floor/unit and/or counseling patient: Plan of Care Discussed with: patient Internal Medicine: Result - Labs CBC & Chem 7: 06/12/18 08:15 06/12/18 04:05 Labs: Short CBC 06/11/18 06/12/18 Range/Units 21:14 08:15 WBC 6.8 5.5 (4.3-11.1) K/mcL Hgb 9.0 L D 8.7 L (12.9-16.9) g/dL Hct 28.1 L 28.4 L (37.5-50.1) % Plt Count 178 159 (140-400) K/mcL Neutrophils # 5.1 4.0 (1.6-8.9) K/mcL BMP 06/12/18 04:05 Sodium 136 Potassium 3.8 Chloride 104 Carbon Dioxide 21 L BUN 13 Creatinine 1.00 Glucose 170 H Calcium 8.8 - ABG Interpretation ABG results: PT/INR, D-dimer PT 13.4 Seconds (9.4-12.1) H 06/11/18 03:14 Consult Discharge Plan - Plan [facility]errals: [facility] [Primary Care Provider] - (2) CHF (congestive heart failure) Qualifiers: Heart failure type: diastolic Heart failure chronicity: acute on chronic Qualified Code(s): I50.33 - Acute on chronic diastolic (congestive) heart failure (3) CAD (coronary artery disease) Qualifiers: Coronary Disease-Associated Artery/Lesion type: unspecified vessel or lesion type [place] vs. transplanted heart: [place] heart Associated angina: angina presence unspecified Qualified Code(s): I25.10 - Atherosclerotic heart disease of [place] coronary artery without angina pectoris (4) Diabetes Qualifiers: Diabetes mellitus type: type 2 Diabetes mellitus retirement insulin use: without retirement use Diabetes mellitus complication status: with skin complications Diabetes mellitus complication detail: with dermatitis Qualified Code(s): E11.620 - Type 2 diabetes mellitus with diabetic dermatitis (7) Community acquired pneumonia Qualifiers: Laterality: unspecified laterality Qualified Code(s): J18.9 - Pneumonia, unspecified organism (9) Atrial flutter Qualifiers: Atrial flutter type: unspecified Qualified Code(s): I48.92 - Unspecified atrial flutter (10) HLD (hyperlipidemia) Qualifiers: Hyperlipidemia type: unspecified Qualified Code(s): E78.5 - Hyperlipidemia, unspecified (11) HTN (hypertension) Qualifiers: Hypertension type: essential hypertension Qualified Code(s): I10 - Essential (primary) hypertension
[2018-06-12] MEDS: levoFLOXacin 750 MG TABLET PO SCH (17:18)
[2018-06-12 21:45] LABS: Basophils % 0.5 %; Eosinophils # 0.3 K/mcL (0.0-0.6); Eosinophils % 3.4 %; Hematocrit 29.5 % (37.5-50.1); Hemoglobin 9.2 g/dL (12.9-16.9); Immature Granulocytes % 0.5 % (0-4); Lymphocytes # 1.1 K/mcL (0.6-4.6); Lymphocytes % 15.2 %; Mean Corpuscular HGB Conc 31.2 g/dL (31.6-35.5); Mean Corpuscular Hemoglobin 24.3 pg (28.0-33.3); Mean Platelet Volume 9.9 fL (9.4-12.4); Monocytes # 0.8 K/mcL (0.0-1.3); Monocytes % 10.3 %; Neutrophils # 5.1 K/mcL (1.6-8.9); Platelet Count 178 K/mcL (140-400); Red Blood Count 3.78 M/mcL (4.19-5.50); Red Cell Distribution Width 18.4 % (11.5-14.5); Segmented Neutrophils % 70.1 %
[2018-06-13] MEDS ORDERED: Ondansetron 4 MG/2 ML VIAL IVP PRN (00:18)
[2018-06-13] MEDS: Insulin LISPRO 300 UNITS/3 ML VIAL SQ SCH ×3 (00:26→12:08)
[2018-06-13] MEDS ORDERED: 0.9 % Sodium Chloride 1,000 ML IVC SCH (00:30)
[2018-06-13] MEDS: Pantoprazole 40 MG VIAL IVP SCH (05:20)
[2018-06-13] MEDS: Furosemide 20 MG TABLET PO SCH (07:44)
[2018-06-13] MEDS: Cholecalciferol (D-3) 1,000 UNIT TABLET PO SCH (07:45)
[2018-06-13 09:39] LABS: Hematocrit 29.8 % (37.5-50.1)
[2018-06-13 11:22] VITALS: BP 112/68
--- NOTE | 2018-06-13 11:27 | Discharge Summary ---
- NOTES TO OUTPATIENT PROVIDER Notes to Outpatient Provider: Patient was admitted for acute on chornic , symptomatic anemia requring blood transfusion secondary to GI bleed. He also had PNA and CHFE. 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 Hb has been stable post-transfusion. GI recommends capsule endoscopy. He is discharged on Levaquin and omeprazole. Follow up with own PCP and GI Orders not resulted at time of discharge: Pending orders 06/10/18 22:19 Culture,Blood [BC] Routine Date of Encounter: 06/13/18 Time of Encounter: 11:27 - Discharge Diagnosis (1) Elevated troponin Priority: Primary Status: Chronic (2) CHF (congestive heart failure) Priority: Primary Status: Acute Qualifiers: Heart failure type: diastolic Heart failure chronicity: acute on chronic Qualified Code(s): I50.33 - Acute on chronic diastolic (congestive) heart failure (3) CAD (coronary artery disease) Priority: Secondary Status: Chronic Qualifiers: Coronary Disease-Associated Artery/Lesion type: unspecified vessel or lesion type [place] vs. transplanted heart: three affiliated heart Associated angina: angina presence unspecified Qualified Code(s): I25.10 - Atherosclerotic heart disease of [place] coronary artery without angina pectoris (4) Diabetes Priority: Secondary Status: Chronic Qualifiers: Diabetes mellitus type: type 2 Diabetes mellitus general maintenance helper insulin use: without shelter use Diabetes mellitus complication status: with skin complications Diabetes mellitus complication detail: with dermatitis Qualified Code(s): E11.620 - Type 2 diabetes mellitus with diabetic dermatitis (5) DVT prophylaxis Priority: Primary Status: Resolved (6) Acute upper gastrointestinal bleeding Priority: Primary Status: Acute (7) Community acquired pneumonia Priority: Primary Status: Acute Qualifiers: Laterality: unspecified laterality Qualified Code(s): J18.9 - Pneumonia, unspecified organism (8) Coughing Priority: Primary Status: Acute (9) Atrial flutter Priority: Secondary Status: Chronic Qualifiers: Atrial flutter type: unspecified Qualified Code(s): I48.92 - Unspecified atrial flutter (10) HLD (hyperlipidemia) Priority: Secondary Status: Chronic Qualifiers: Hyperlipidemia type: unspecified Qualified Code(s): E78.5 - Hyperlipidemia , unspecified (11) HTN (hypertension) Priority: Secondary Status: Chronic Qualifiers: Hypertension type: essential hypertension Qualified Code(s): I10 - Essential (primary) hypertension Hospital course: Mr. Llanes is a 83 year old male with PMH of CHFpEF, Afb not on a/c due to GIB, COPD, HTN, DM, CAD, DVT presenting with complaints of shortness of breath and chest pressure of about 24 -48hrs duration> patient notes he typically has a sensation of his bronchioles tightening up due to the fact that he has post nasal drip and this discomfort is usually relieved by benadryl and robitussin. He typically attributes this to his post nasal drip. He also notes he had dark stools about a month ago and was scoped at the [facility] but says the source of his bleeding could not be located. He presented today with shortness of breath, admits to mild coughing, denies any history of COPD. He also noted dark stools today of about 2 episodes. In the ER, his hemoglobin was noted to be 7.3 down from 9.1 on his last discharge. Chest xray in [facility] also showed findings suspicious for pneumonia Patient was admitted for acute on chornic , symptomatic anemia requring blood transfusion secondary to GI bleed. He also had PNA and CHFE. 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 Hb has been stable post-transfusion CXR here did confirm L retrocardiac opacity significant for PNA GI recommends capsule endoscopy as out-patient He is discharged on Levaquin and omeprazole Follow up with own PCP and GI Discharge discussed with: patient, nurse, social work - Time Spent with Patient Total time spent providing and/or coordinating discharge services: Greater than 30 minutes - Discharge Medications Prescriptions: levoFLOXacin [Levaquin] 750 mg PO Q24H #4 tablet Omeprazole [PriLOSEC] 40 mg PO BIDAC #60 capsule.dr Home Medications: Allopurinol [Zyloprim] 300 mg PO DAILY 05/29/18 [History] Aspirin [Adult Aspirin Regimen] 81 mg PO DAILY 05/29/18 [History] Atorvastatin [Lipitor] 10 mg PO HS 05/29/18 [History] Cholecalciferol (D-3) [Vitamin D] 1,000 unit PO DAILY 05/29/18 [History] Furosemide [Lasix] 20 mg PO DAILY 05/29/18 [History] Metformin HCl [Glucophage] 1,000 mg PO BID 05/29/18 [History] Omeprazole [PriLOSEC] 40 mg PO BIDAC #60 capsule. 06/13/18 [Rx] levoFLOXacin [Levaquin] 750 mg PO Q24H #4 tablet 06/13/18 [Rx] Allergies/Adverse Reactions: 3 Allergy/AdvReac Type Severity Reaction Status Date / Time diazepam [From Valium] Allergy Intermediate Unresponsiv Verified 06/10/18 19:36 e Penicillins Allergy Mild Hives Verified 06/10/18 19:36 adhesive tape Allergy Hives Verified 06/10/18 19:36 apixaban Allergy Anaphylaxis Verified 06/10/18 19:36 budesonide Allergy Anaphylaxis Verified 06/10/18 19:36 secobarbital Allergy Anaphylaxis Verified 06/10/18 19:36 albuterol AdvReac Flushing Verified 06/10/18 19:36 Date of admission: 06/10/18 21:49 [facility] care physician[facility] Discharging clinician: Alvaro Mayorga Anticipated date of discharge: 06/13/18 - Constitutional Vitals: Temp Pulse Resp BP Pulse Ox 98.3 F 93 17 112/68 97 06/13/18 11:21 06/13/18 11:21 06/13/18 11:21 06/13/18 11:21 06/13/18 11:21 VSS, HR 90-100. BP WNL Gen: not in any form of distress Neuro: No focal deficits HEENT: Moist oral mucosa, anicteric, clinically pale, no cyanosis Chest: CTAB, no wheezing, no rhonchi Heart: S1, S2 only, no m/g/r, no JVD Abdomen: Soft, not tender, no palpably enlarged organs Extremities: No edema Skin: RLE loera rash, non-weeping, [id number] patient "this is diabetic sugar rash" - Patient Status Disposition: Home, Self-Care Condition: Good Functional capacity at discharge: independent ambulation Overall status at discharge: patient is progressing back to baseline - Discharge Instructions Instructions: Diabetes Mellitus Type 2 in Adults (DC) Follow Up With: [facility] [Primary Care Provider[facility] - ([facility]) - Diet and Activity Activity: resume usual activities as tolerated Diet: diabetic diet, low fat, low cholesterol, low salt diet
[2018-06-13] MEDS: levoFLOXacin 750 MG TABLET PO SCH (13:55)
== END 2018-06-13 15:44 | disposition home or self-care (01) | DRG 377 ==
LOC: 2ANU 19:03 → EMEROO 19:03 → 2ANU 21:30 → SUATTDRO 21:49
PROVIDERS: ADMIT Internal Medicine; ATTEND Internal Medicine

== ENCOUNTER 2018-06-23 01:39 | Observation (INO) ==
[2018-06-23] MEDS ORDERED: Naloxone 0.4 MG/ML INJ IVP PRN (04:47)
[2018-06-23] MEDS ORDERED: Ipratropium/Albuterol Neb 3 ML IH PRN (04:50)
[2018-06-23] MEDS ORDERED: Dextrose Gel 15 GM/37.5 ML TUBE PO PRN ×2 (04:51)
[2018-06-23] MEDS ORDERED: *HR* Dextrose 50 % in Water (Syg) 50 ML SYRINGE IVP PRN (04:51)
[2018-06-23] MEDS ORDERED: D5% in Water 1,000 ML IVC PRN (04:51)
--- NOTE | 2018-06-23 04:58 | Internal Med History&Physical ---
Date of Encounter: 06/23/18 Time of Encounter: 04:30 Internal Medicine - H&P: HPI Chief complaint: SOB, leg swelling History of present illness: Mr. Llanes is a 83 year old male with past history of CAD status post CABG, ischemic cardiomyopathy status post ICD placement, a flutter, DVT not on anticoagulation due to recurrent GI bleed, diabetes, hypertension, PAD, presented to the [facility] ED with 2 day history of SOB and leg swelling. Gradually worsening, his shoes no longer fitted him due to swelling hence he wanted to be evaluated. States that he has also been coughing but attributed to postnasal drip that he chronically has. Denies any fever/chills, chest pain, palpitation, sputum production, or PND. No sick contacts. He says that he drinks about 4 bottles of 16 oz water plus a few cups of juice per day. No GI/ symptoms. In the ED, he was afebrile and hemodynamically stable. Saturating 99% on 2 L of oxygen. Workup from the outside hospital ED was reviewed; he had negative troponin but BNP of 3846. EKG normal sinus rhythm with known RBBB. Hemoglobin was 8.2 (baseline around 8-9). Creatinine 1.27 (baseline 1). No leukocytosis. No x-ray report available. Chest x-ray was repeated at our facility which shows worsening heart failure. He was given IV Rocephin/Levaquin, Lasix of 40 mg , and Solu-Medrol and was transferred to [facility] for further management. Of note, when he was admitted recently for similar complaints in mid May, his BNP was around 720. Past Med Surg Social Fam HX - Past Medical History Attestation: Yes The following information was validated with the patient. Medical history: arthritis, cancer, COPD, coronary artery disease, DVT, diabetes , GERD, glaucoma, hyperlipidemia, hypertension, myocardial infarction, peripheral artery disease, TIA, other Additional medical history: MRSA. Neoplasm of ascending colon Psychiatric history: depression - Past Surgical History Surgical History: coronary bypass (CABG), pacemaker Additional surgical history: Braeden Filter, fem pop right leg, broken left ankle, bone spur and cyst left foot, neck and back surgeries - Social History Smoking Status: Former smoker Smokeless Tobacco Status: No Alcohol use: rarely Drug use: none - Family History Father Adopted: No Family Member Ethnicity: Non- Living Status: Hx Family Cardiac Disorders: Yes Hx Family Respiratory Disorders: No Hx Family Cancer: No Hx Family GI Disorders: No Hx Family Endocrine Disorder: No Hx Family Neuromuscular Disorders: No Hx Family Neurologic Disorders: No Hx Family HEENT Disorders: No Hx Family Autoimmune Disorders: No Mother Family Member Ethnicity: Non- Living Status: Hx Family Cardiac Disorders: Yes Internal Medicine - H&P: Meds Allopurinol [Zyloprim] 300 mg PO DAILY 05/29/18 [History] Aspirin [Adult Aspirin Regimen] 81 mg PO DAILY 05/29/18 [History] Atorvastatin [Lipitor] 10 mg PO HS 05/29/18 [History] Cholecalciferol (D-3) [Vitamin D] 1,000 unit PO DAILY 05/29/18 [History] Furosemide [Lasix] 20 mg PO DAILY 05/29/18 [History] Metformin HCl [Glucophage] 1,000 mg PO BID 05/29/18 [History] Omeprazole [PriLOSEC] 40 mg PO BIDAC #60 capsule. 06/13/18 [Rx] levoFLOXacin [Levaquin] 750 mg PO Q24H #4 tablet 06/13/18 [Rx] 3 Allergy/AdvReac Type Severity Reaction Status Date / Time diazepam [From Valium] Allergy Intermediate Unresponsiv Verified 06/10/18 19:36 e Penicillins Allergy Mild Hives Verified 06/10/18 19:36 adhesive tape Allergy Hives Verified 06/10/18 19:36 apixaban Allergy Anaphylaxis Verified 06/10/18 19:36 budesonide Allergy Anaphylaxis Verified 06/10/18 19:36 secobarbital Allergy Anaphylaxis Verified 06/10/18 19:36 albuterol AdvReac [place] Verified 06/10/18 19:36 All Systems PM: A 10-system review of systems was performed and is negative for pertinent findings except as documented above in the HPI. - Constitutional Vitals: Temp Pulse Resp BP Pulse Ox 97.5 F L 90 16 110/75 98 06/23/18 04:46 06/23/18 04:46 06/23/18 04:46 06/23/18 04:46 06/23/18 04:46 Exam: General: Alert and oriented, not in acute distress. HEENT:EOM, pupils equal, round and reactive. Cardiovascular:Normal S1 & S2, unable to appreciate JVD. Regular pulse. Lungs: Bibasilar crackles up to mid zones, no rhonchi/wheezes Abdomen:Soft, non-tender, no rigidity. Extremities:No deformity or joint swelling. Right anterior loera has bandage over the wound which is dry and clean. Neurological:Normal cognition and motor skills. Non-focal Skin:Normal color, no rash, no lesions. Pulses:Carotid and radial pulses normal +2. Rest of the physical exam is non contributory Internal Med - H&P Results - Impressions ITS Impressions Chest X-Ray 06/23/18 04:27 IMPRESSION: Worsening heart failure, manifested by increased bilateral effusions, interstitial and alveolar edema. Superimposed pneumonia could be present in the appropriate clinical context. D/ / Eugenio Murrell / Eugenio Murrell Interpreting Provider: Eugenio Murrell - Assessment and plan (1) CHF (congestive heart failure) Current Visit: Yes Status: Acute Assessment and plan: His symptoms, chest x-ray finding, as well as elevated BNP is suggestive of decompensated heart failure Low suspicion for COPD exacerbation or pneumonia. Unclear etiology, ?Indiscretion to fluid intake or insufficient Lasix dose Does not seem to be triggered by severe hypertension or a flutter with RVR Given Lasix at the outside hospital ED, will continue IV Lasix 40 mg twice a day We will hold off on further steroids and antibiotics, monitor clinical course Echo was recently done in May 2018 which showed EF of 50% and diastolic dysfunction Trend troponin to rule out ACS Telemetry Qualifiers: Heart failure type: combined systolic and diastolic Heart failure chronicity: acute on chronic Qualified Code(s): I50.43 - Acute on chronic combined systolic (congestive) and diastolic (congestive) heart failure (2) Atrial flutter Current Visit: No Status: Chronic Assessment and plan: Currently in normal sinus rhythm, not tachycardic Not on anticoagulation due to recurrent GI bleed Qualifiers: Atrial flutter type: unspecified Qualified Code(s): I48.92 - Unspecified atrial flutter (3) CAD (coronary artery disease) Current Visit: No Status: Chronic Assessment and plan: Denies any angina Resume all meds when reconciled Qualifiers: Coronary Disease-Associated Artery/Lesion type: unspecified vessel or lesion type [place] vs. transplanted heart: [place] heart Associated angina: angina presence unspecified Qualified Code(s): I25.10 - Atherosclerotic heart disease of [place] coronary artery without angina pectoris (4) Diabetes Current Visit: No Status: Chronic Assessment and plan: On metformin 1 g twice a day at home We will cover with low-dose sliding scale while inpatient ADA diet Qualifiers: Diabetes mellitus type: type 2 Diabetes mellitus mcc insulin use: without long line teamster use Diabetes mellitus complication status: with skin complications Diabetes mellitus complication detail: with dermatitis Qualified Code(s): E11.620 - Type 2 diabetes mellitus with diabetic dermatitis (5) DVT prophylaxis Current Visit: No Status: Resolved Assessment and plan: Will avoid subcutaneous heparin given recurrent GI bleed SCD - Time Spent With Patient Total time spent is greater than 50% in coordination of care (as documented) at patient's floor/unit and/or counseling patient:
[2018-06-23 05:19] LABS: Basophils % 0.2 %; Eosinophils % 0.3 %; Hematocrit 26.7 % (37.5-50.1); Hemoglobin 8.1 g/dL (12.9-16.9); Immature Granulocytes % 0.2 % (0-4); Lymphocytes # 0.2 K/mcL (0.6-4.6); Lymphocytes % 4.2 %; Mean Corpuscular HGB Conc 30.3 g/dL (31.6-35.5); Mean Corpuscular Hemoglobin 23.3 pg (28.0-33.3); Mean Corpuscular Volume 76.7 fL (83.0-100.0); Monocytes # 0.1 K/mcL (0.0-1.3); Monocytes % 1.9 %; Neutrophils # 5.4 K/mcL (1.6-8.9); Platelet Count 155 K/mcL (140-400); Red Blood Count 3.48 M/mcL (4.19-5.50); Red Cell Distribution Width 19.9 % (11.5-14.5); Segmented Neutrophils % 93.2 %
[2018-06-23 05:37] LABS: BUN/Creatinine Ratio 22 (6-26); Blood Urea Nitrogen 23 mg/dL (8-23); Calcium 9.1 mg/dL (8.6-10.3); Carbon Dioxide 24 mEq/L (23-29); Chloride 100 mEq/L (98-107); Glucose 227 mg/dL (70-105); Osmolality,Calculated 287 (280-300); Potassium 4.5 mEq/L (3.5-5.1); Sodium 133 mEq/L (136-145); eGFR For Non-African Americans > 60 (> 60)
[2018-06-23] MEDS: Furosemide 40 MG/4 ML VIAL IVP SCH ×2 (06:20→18:09)
[2018-06-23] MEDS: Insulin LISPRO 300 UNITS/3 ML VIAL SQ SCH ×4 (08:37→20:35)
--- NOTE | 2018-06-23 09:09 | Event Note ---
Date of Encounter: 06/23/18 Time of Encounter: 09:00 Patient seen and examined by hospitalist earlier this am. I examined the patient at bedside. Currently denies any CP or SOB. He has +1 pitting edema bilat. he admits that he drinks 6 18 fluid oz of water every day. I informed patient he wll be n fluid restriction with lasix and daily weights. He verbalized understanding. he was admitted last month for GI bleed and had upper lower GI scope he voices concern that he has black stools since procedure. He was checked last week at DC and was negative occult stool. We will monitor Hgb and signs of bleeding
[2018-06-24 04:28] LABS: Eosinophils % 0.3 %; Hematocrit 25.2 % (37.5-50.1); Hemoglobin 7.7 g/dL (12.9-16.9); Immature Granulocytes % 0.5 % (0-4); Lymphocytes # 0.8 K/mcL (0.6-4.6); Lymphocytes % 12.2 %; Mean Corpuscular HGB Conc 30.6 g/dL (31.6-35.5); Mean Corpuscular Hemoglobin 23.3 pg (28.0-33.3); Mean Corpuscular Volume 76.1 fL (83.0-100.0); Mean Platelet Volume 10.5 fL (9.4-12.4); Monocytes # 0.6 K/mcL (0.0-1.3); Monocytes % 9.7 %; Neutrophils # 5.1 K/mcL (1.6-8.9); Platelet Count 170 K/mcL (140-400); Red Blood Count 3.31 M/mcL (4.19-5.50); Red Cell Distribution Width 19.9 % (11.5-14.5); Segmented Neutrophils % 77.3 %
[2018-06-24 04:47] LABS: BUN/Creatinine Ratio 21 (6-26); Blood Urea Nitrogen 25 mg/dL (8-23); Calcium 8.9 mg/dL (8.6-10.3); Carbon Dioxide 27 mEq/L (23-29); Chloride 100 mEq/L (98-107); Glucose 153 mg/dL (70-105); Osmolality,Calculated 285 (280-300); Potassium 3.8 mEq/L (3.5-5.1); Sodium 134 mEq/L (136-145); eGFR For Non-African Americans 59 (> 60)
[2018-06-24] MEDS: Insulin LISPRO 300 UNITS/3 ML VIAL SQ SCH ×4 (08:25→22:43)
[2018-06-24] MEDS: Furosemide 40 MG/4 ML VIAL IVP SCH ×2 (08:25→18:08)
[2018-06-24 08:29] LABS: Hematocrit 25.3 % (37.5-50.1); Hemoglobin 7.7 g/dL (12.9-16.9)
[2018-06-24] MEDS ORDERED: Furosemide 20 MG TABLET PO SCH (14:45)
--- NOTE | 2018-06-24 16:53 | Internal Med Progress Note ---
Hospitalist Progress Note - Encounter Date of Encounter: 06/24/18 Time of Encounter: 09:25 - Subjective Interval History: Patient was seen and assessed at bedside at 9:25 AM. He is alert, awake, pleasant. He answers questions appropriately. He states that he is feeling somewhat better. He states that he is unable to remain compliant with fluid restriction due to dry mouth. He admits to drinking greater than 2.5 L of fluid daily. We have discussed 1.5 L fluid restriction daily, as well as low- sodium. He states that he will be unable to do these at home. - Exam Vitals: Temp Pulse Resp BP Pulse Ox 98.1 F 83 17 103/62 98 06/24/18 16:43 06/24/18 16:43 06/24/18 16:43 06/24/18 16:43 06/24/18 16:43 Exam: General: Pt resting quietly on bed, no distress. Skin: pwd, no rashes, lesions, redness Neurological: Pt is alert and awake, oriented x 3, Speech is clear, PERRLA, EOMI , no nystagmus, no pronator drift. strength equal x 4 extremities HEENT: mucous mumbranes moist, no conjuctival pallor Neck: supple, no tracheal deviation, no lymphadenopathy, tenderness, no thyromegaly Heart: S1S2 heard without gallops, clicks, murmurs, no bradycardia or tachycardia, pt has +1-+2 NON-pitting peripheral edema, pedal and radial pulses palpable bilaterally. Lungs: clear throughout without wheezing, rales, or ronchi, respirations are unlabored Abdomen: soft and non tender with bowel sound present, no hepatomegaly. Psych: Normal affect with good eye contact - Assessment and Plan (1) CHF (congestive heart failure) Current Visit: Yes Status: Acute Assessment and Plan: His symptoms, chest x-ray finding, as well as elevated BNP is suggestive of decompensated heart failure Unclear etiology, the patient does say that he is not adherent to medication regimen and easily drinks 2.5 L of fluid daily. Continue IV Lasix 40 mg twice a day Echo was recently done in May 2018 which showed EF of 50% and diastolic dysfunction Troponins negative. Continue telemetry (2) Atrial flutter Current Visit: Yes Status: Chronic Assessment and Plan: Currently in normal sinus rhythm, not tachycardic Not on anticoagulation due to recurrent GI bleed (3) CAD (coronary artery disease) Current Visit: Yes Status: Chronic Assessment and Plan: Denies chest pain Continue aspirin, statin, Imdur, beta ana luisa. Continue telemetry (4) Diabetes Current Visit: Yes Status: Chronic Assessment and Plan: Continue sliding scale insulin, Accu-Cheks before meals and at bedtime, diabetic diet. A1c ordered for morning. (5) DVT prophylaxis Current Visit: No Status: Resolved Assessment and Plan: Will avoid subcutaneous heparin given recurrent GI bleed SCDs ordered. - Time Spent with Patient Total time spent is greater than 50% in coordination of care (as documented) at patient's floor/unit and/or counseling patient: less than 15 minutes Plan of Care Discussed with: patient Internal Medicine: Result - Labs CBC & Chem 7: 06/24/18 08:13 06/24/18 03:46 Labs: Short CBC 06/24/18 06/24/18 Range/Units 03:46 08:13 WBC 6.6 (4.3-11.1) K/mcL Hgb 7.7 L 7.7 L (12.9-16.9) g/dL Hct 25.2 L 25.3 L (37.5-50.1) % Plt Count 170 (140-400) K/mcL Neutrophils # 5.1 (1.6-8.9) K/mcL BMP 06/24/18 03:46 Sodium 134 L Potassium 3.8 Chloride 100 Carbon Dioxide 27 BUN 25 H Creatinine 1.17 Glucose 153 H Calcium 8.9 - VTE Documentation of Mechanical Device: Intermittent pneumatic compression device Consult Discharge Plan - Plan [facility]errals[facility] [Primary Care Provider] - (1) CHF (congestive heart failure) Qualifiers: Heart failure type: combined systolic and diastolic Heart failure chronicity : acute on chronic Qualified Code(s): I50.43 - Acute on chronic combined systolic (congestive) and diastolic (congestive) heart failure (2) Atrial flutter Qualifiers: Atrial flutter type: unspecified Qualified Code(s): I48.92 - Unspecified atrial flutter (3) CAD (coronary artery disease) Qualifiers: Coronary Disease-Associated Artery/Lesion type: unspecified vessel or lesion type [place] vs. transplanted heart: [place] heart Associated angina: angina presence unspecified Qualified Code(s): I25.10 - Atherosclerotic heart disease of [place] coronary artery without angina pectoris (4) Diabetes Qualifiers: Diabetes mellitus type: type 2 Diabetes mellitus manager long term care insulin use: without manager long term care use Diabetes mellitus complication status: with skin complications Diabetes mellitus complication detail: with dermatitis Qualified Code(s): E11.620 - Type 2 diabetes mellitus with diabetic dermatitis
[2018-06-24] MEDS: Metoprolol XL (24 HR) Succ 25 MG TAB.ER.24H PO SCH (17:34)
[2018-06-24] MEDS: Isosorbide MONOnitrate (24 HR) 30 MG TAB.ER.24H PO SCH (17:34)
[2018-06-24] MEDS: Aspirin Enteric Coated 81 MG Tablet PO SCH (17:34)
[2018-06-24 18:00] LABS: Hematocrit 26.6 % (37.5-50.1)
[2018-06-24] MEDS ORDERED: Saliva Stimulant 100ml BOTTLE PO PRN (18:04)
[2018-06-24 23:03] LABS: Hematocrit 24.9 % (37.5-50.1); Hemoglobin 7.7 g/dL (12.9-16.9)
[2018-06-25 05:22] LABS: Basophils % 0.6 %; Eosinophils # 0.1 K/mcL (0.0-0.6); Eosinophils % 2.8 %; Hematocrit 22.3 % (37.5-50.1); Hemoglobin 6.7 g/dL (12.9-16.9); Immature Granulocytes % 0.2 % (0-4); Lymphocytes % 18.8 %; Mean Corpuscular Hemoglobin 22.5 pg (28.0-33.3); Mean Corpuscular Volume 74.8 fL (83.0-100.0); Mean Platelet Volume 9.6 fL (9.4-12.4); Monocytes # 0.5 K/mcL (0.0-1.3); Monocytes % 9.5 %; Neutrophils # 3.4 K/mcL (1.6-8.9); Platelet Count 149 K/mcL (140-400); Red Blood Count 2.98 M/mcL (4.19-5.50); Red Cell Distribution Width 20.1 % (11.5-14.5); Segmented Neutrophils % 68.1 %
[2018-06-25 05:44] LABS: BUN/Creatinine Ratio 22 (6-26); Blood Urea Nitrogen 23 mg/dL (8-23); Calcium 8.6 mg/dL (8.6-10.3); Carbon Dioxide 28 mEq/L (23-29); Chloride 100 mEq/L (98-107); Glucose 135 mg/dL (70-105); Osmolality,Calculated 286 (280-300); Potassium 3.5 mEq/L (3.5-5.1); Sodium 135 mEq/L (136-145); eGFR For Non-African Americans > 60 (> 60)
[2018-06-25] MEDS ORDERED: 0.9 % Sodium Chloride 500 ML ONE (06:08)
[2018-06-25 06:55] LABS: Estimated Average Glucose 151 mg/dl; Hemoglobin A1C 6.9 %
[2018-06-25] MEDS: Insulin LISPRO 300 UNITS/3 ML VIAL SQ SCH ×4 (08:01→20:29)
[2018-06-25] MEDS: Cholecalciferol (D-3) 1,000 UNIT TABLET PO SCH (09:05)
[2018-06-25] MEDS: Aspirin Enteric Coated 81 MG Tablet PO SCH (09:05)
[2018-06-25] MEDS: Ascorbic Acid 500 MG TABLET PO SCH ×2 (09:05→20:09)
[2018-06-25] MEDS: Metoprolol XL (24 HR) Succ 25 MG TAB.ER.24H PO SCH (09:05)
[2018-06-25] MEDS: Isosorbide MONOnitrate (24 HR) 30 MG TAB.ER.24H PO SCH (09:06)
[2018-06-25] MEDS: Furosemide 40 MG/4 ML VIAL IVP SCH ×2 (10:07→16:49)
[2018-06-25] MEDS: Loratadine 10 MG TABLET PO SCH (10:07)
[2018-06-25 10:52] LABS: Hematocrit 26.8 % (37.5-50.1); Hemoglobin 8.2 g/dL (12.9-16.9)
[2018-06-25 12:30] LABS: Bilirubin,Urine Negative (Negative); Blood,Urine Negative (Negative); Clarity,Urine Clear (Clear); Color,Urine Yellow (Yellow); Glucose,Urine (UA) Normal (Normal); Ketones,Urine Negative (Negative); Leukocyte Esterase,Urine Negative (Negative); Nitrite,Urine Negative (Negative); PH,Urine 6.5 pH Units (5.0-8.0); Protein,Urine Negative (Neg-Trace); Specific Gravity,Urine 1.021 (1.010-1.025); Urobilinogen,Urine Normal (Normal)
--- NOTE | 2018-06-25 16:22 | Internal Med Progress Note ---
Hospitalist Progress Note - Encounter Date of Encounter: 06/25/18 Time of Encounter: 09:25 - Subjective Interval History: Patient was seen and assessed at bedside at 9:25 AM. He is alert, awake, pleasant. He answers questions appropriately. Pt states today that he has postnasal drip that causes him to drink fluids more than he should, he agreed to try Claritin. He has Biotene and swabs at bedside. - Exam Vitals: Temp Pulse Resp BP Pulse Ox 97.4 F L 96 17 108/65 95 06/25/18 16:08 06/25/18 16:08 06/25/18 16:08 06/25/18 16:08 06/25/18 16:08 Exam: General: Pt resting quietly on bed, no distress. Skin: pwd, no rashes, lesions, redness Neurological: Pt is alert and awake, oriented x 3, Speech is clear, PERRLA, EOMI , no nystagmus, no pronator drift. strength equal x 4 extremities HEENT: mucous mumbranes moist, no conjuctival pallor Neck: supple, no tracheal deviation, no lymphadenopathy, tenderness, no thyromegaly Heart: S1S2 heard without gallops, clicks, murmurs, no bradycardia or tachycardia, pt has no peripheral edema, pedal and radial pulses palpable bilaterally. Lungs: clear throughout without wheezing, rales, or ronchi, respirations are unlabored Abdomen: soft and non tender with bowel sound present, no hepatomegaly. Psych: Normal affect with good eye contact - Assessment and Plan (1) CHF (congestive heart failure) Current Visit: Yes Status: Acute Assessment and Plan: His symptoms, chest x-ray finding, as well as elevated BNP is suggestive of decompensated heart failure Etiology likely noncompliance, the patient does say that he is not adherent to medication regimen and easily drinks 2.5 L of fluid daily. Continue IV Lasix 40 mg twice a day Echo was recently done in May 2018 which showed EF of 50% and diastolic dysfunction Troponins negative. Continue telemetry Patient admits to difficulty adhering to fluid restriction at home. Pt with -1.5 liter fluid restriction. (2) Atrial flutter Current Visit: Yes Status: Chronic Assessment and Plan: Currently in normal sinus rhythm, not tachycardic, continue BB. Not on anticoagulation due to recurrent GI bleed (3) CAD (coronary artery disease) Current Visit: Yes Status: Chronic Assessment and Plan: Denies chest pain Continue aspirin, statin, Imdur, beta ana luisa. Continue telemetry (4) Diabetes Current Visit: Yes Status: Chronic Assessment and Plan: Continue sliding scale insulin, Accu-Cheks before meals and at bedtime, diabetic diet. A1c 6.9%. (5) DVT prophylaxis Current Visit: Yes Status: Resolved Assessment and Plan: Will avoid subcutaneous heparin given recurrent GI bleed SCDs ordered. 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 Stool occult blood negative, no hematuria per UA. After 1 unit PRBCs, Hgb 8.2% and he has been started on FeS04 325mg po BID Pt admits to poor diet at home and states that he normally eats jambalya, denies eating diet rich in iron. - Time Spent with Patient Total time spent is greater than 50% in coordination of care (as documented) at patient's floor/unit and/or counseling patient: less than 15 minutes Plan of Care Discussed with: patient Internal Medicine: Result - Labs CBC & Chem 7: 06/25/18 10:41 06/25/18 05:05 Labs: Short CBC 06/24/18 06/24/18 06/25/18 Range/Units 17:51 22:41 05:05 WBC 5.1 (4.3-11.1) K/mcL Hgb 8.0 L 7.7 L 6.7 L (12.9-16.9) g/dL Hct 26.6 L 24.9 L 22.3 L (37.5-50.1) % Plt Count 149 (140-400) K/mcL Neutrophils # 3.4 (1.6-8.9) K/mcL 06/25/18 Range/Units 10:41 WBC (4.3-11.1) K/mcL Hgb 8.2 L D (12.9-16.9) g/dL Hct 26.8 L (37.5-50.1) % Plt Count (140-400) K/mcL Neutrophils # (1.6-8.9) K/mcL BMP 06/25/18 05:05 Sodium 135 L Potassium 3.5 Chloride 100 Carbon Dioxide 28 BUN 23 Creatinine 1.04 Glucose 135 H Calcium 8.6 Urine 06/25/18 Range/Units 12:00 Urine Color Yellow (Yellow) Urine Clarity Clear (Clear) Urine pH 6.5 (5.0-8.0) pH Units Ur Specific [place] 1.021 (1.010-1.025) Urine Protein Negative (Neg-Trace) mg/dL Urine Glucose (UA) Normal (Normal) mg/dL - VTE Documentation of Mechanical Device: Intermittent pneumatic compression device Consult Discharge Plan - Plan [facility]errals: [facility] [Primary Care Provider] - (1) CHF (congestive heart failure) Qualifiers: Heart failure type: combined systolic and diastolic Heart failure chronicity : acute on chronic Qualified Code(s): I50.43 - Acute on chronic combined systolic (congestive) and diastolic (congestive) heart failure (2) Atrial flutter Qualifiers: Atrial flutter type: unspecified Qualified Code(s): I48.92 - Unspecified atrial flutter (3) CAD (coronary artery disease) Qualifiers: Coronary Disease-Associated Artery/Lesion type: unspecified vessel or lesion type [place] vs. transplanted heart: [place] heart Associated angina: angina presence unspecified Qualified Code(s): I25.10 - Atherosclerotic heart disease of [place] coronary artery without angina pectoris (4) Diabetes Qualifiers: Diabetes mellitus type: type 2 Diabetes mellitus terminal clerk insulin use: without terminal clerk use Diabetes mellitus complication status: with skin complications Diabetes mellitus complication detail: with dermatitis Qualified Code(s): E11.620 - Type 2 diabetes mellitus with diabetic dermatitis
[2018-06-26 05:29] LABS: Basophils % 0.4 %; Eosinophils # 0.1 K/mcL (0.0-0.6); Eosinophils % 2.9 %; Hematocrit 25.4 % (37.5-50.1); Hemoglobin 7.9 g/dL (12.9-16.9); Immature Granulocytes % 0.4 % (0-4); Lymphocytes # 0.7 K/mcL (0.6-4.6); Lymphocytes % 15.1 %; Mean Corpuscular HGB Conc 31.1 g/dL (31.6-35.5); Mean Corpuscular Hemoglobin 23.5 pg (28.0-33.3); Mean Corpuscular Volume 75.6 fL (83.0-100.0); Mean Platelet Volume 9.4 fL (9.4-12.4); Monocytes # 0.5 K/mcL (0.0-1.3); Monocytes % 10.7 %; Neutrophils # 3.4 K/mcL (1.6-8.9); Platelet Count 143 K/mcL (140-400); Red Blood Count 3.36 M/mcL (4.19-5.50); Red Cell Distribution Width 19.9 % (11.5-14.5); Segmented Neutrophils % 70.5 %
[2018-06-26 05:52] LABS: BUN/Creatinine Ratio 20 (6-26); Blood Urea Nitrogen 19 mg/dL (8-23); Calcium 8.6 mg/dL (8.6-10.3); Carbon Dioxide 29 mEq/L (23-29); Chloride 100 mEq/L (98-107); Glucose 146 mg/dL (70-105); Osmolality,Calculated 289 (280-300); Potassium 3.2 mEq/L (3.5-5.1); Sodium 137 mEq/L (136-145); eGFR For Non-African Americans > 60 (> 60)
[2018-06-26] MEDS ORDERED: Chloraseptic Spray 177 ML BOTTLE MM PRN (09:39)
[2018-06-26] MEDS: Aspirin Enteric Coated 81 MG Tablet PO SCH (10:01)
[2018-06-26] MEDS: Ascorbic Acid 500 MG TABLET PO SCH ×2 (10:01→20:05)
[2018-06-26] MEDS: Cholecalciferol (D-3) 1,000 UNIT TABLET PO SCH (10:01)
[2018-06-26] MEDS: Metoprolol XL (24 HR) Succ 25 MG TAB.ER.24H PO SCH (10:02)
[2018-06-26] MEDS: Isosorbide MONOnitrate (24 HR) 30 MG TAB.ER.24H PO SCH (10:02)
[2018-06-26] MEDS: Furosemide 40 MG/4 ML VIAL IVP SCH ×2 (10:02→16:22)
[2018-06-26] MEDS: Loratadine 10 MG TABLET PO SCH (10:02)
[2018-06-26] MEDS: Insulin LISPRO 300 UNITS/3 ML VIAL SQ SCH ×4 (10:14→20:05)
[2018-06-26] MEDS ORDERED: Iron Sucrose Complex 400 MG in 0.9 % Sodium Chloride 250 ML IVPB ONE (13:14)
[2018-06-26 14:44] LABS: Hematocrit 28.6 % (37.5-50.1); Hemoglobin 8.7 g/dL (12.9-16.9)
--- NOTE | 2018-06-26 14:56 | Discharge Summary ---
- NOTES TO OUTPATIENT PROVIDER Notes to Outpatient Provider: Pt will need close follow up for monitoring of anemia. Pt has been started on Ferrous Sulfate with Vitamin C and Colace, received Venofer 400mg IV X 1 dose in the hospital. Date of Encounter: 06/26/18 Time of Encounter: 09:40 - Discharge Diagnosis (1) CHF (congestive heart failure) Priority: Secondary Status: Acute Assessment and Plan: Etiology likely noncompliance, the patient does say that he is not adherent to medication regimen and easily drinks 2.5 L of fluid daily. Continue home dose of Lasix 20mg po daily Echo was recently done in May 2018 which showed EF of 50% and diastolic dysfunction Troponins negative. Patient admits to difficulty adhering to fluid restriction at home. Pt with -1.5 liter fluid restriction. Qualifiers: Heart failure type: combined systolic and diastolic Heart failure chronicity: acute on chronic Qualified Code(s): I50.43 - Acute on chronic combined systolic (congestive) and diastolic (congestive) heart failure (2) Atrial flutter Priority: Secondary Status: Chronic Assessment and Plan: Currently in normal sinus rhythm, not tachycardic, continue BB. Not on anticoagulation due to recurrent GI bleed Qualifiers: Atrial flutter type: unspecified Qualified Code(s): I48.92 - Unspecified atrial flutter (3) CAD (coronary artery disease) Priority: Secondary Status: Chronic Assessment and Plan: Denies chest pain Continue aspirin, statin, Imdur, beta ana luisa. Qualifiers: Coronary Disease-Associated Artery/Lesion type: unspecified vessel or lesion type [place] vs. transplanted heart: [place] heart Associated angina: angina presence unspecified Qualified Code(s): I25.10 - Atherosclerotic heart disease of [place] coronary artery without angina pectoris (4) Diabetes Priority: Secondary Status: Chronic Assessment and Plan: Continue home medications, Accu-Cheks before meals and at bedtime, diabetic diet. A1c 6.9%. Qualifiers: Diabetes mellitus type: type 2 Diabetes mellitus halfway insulin use: without intermediate frame tender use Diabetes mellitus complication status: with skin complications Diabetes mellitus complication detail: with dermatitis Qualified Code(s): E11.620 - Type 2 diabetes mellitus with diabetic dermatitis (5) DVT prophylaxis Priority: Secondary Status: Acute Assessment and Plan: Will avoid subcutaneous heparin given recurrent GI bleed SCDs ordered. 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 Stool occult blood negative, no hematuria per UA. Pt has been started on Ferrous Sulfate 325mg po BID with vitamin C. Venofer infusion 400mg IV x 1 today. Follow up H and H with results to PCP in 3 days. Pt admits to poor diet at home and states that he normally eats jambalya, denies eating diet rich in iron. Hospital course: see assessment and plan for hospital course. Discharge discussed with: patient, nurse - Time Spent with Patient Total time spent providing and/or coordinating discharge services: Less than 30 minutes - Discharge Medications Prescriptions: Ascorbic Acid [Vitamin C] 500 mg PO BID #60 tablet Ferrous Sulfate 325 mg PO BIDWM #60 tablet Loratadine [Claritin] 10 mg PO DAILY #30 tablet Saliva Stimulant [Biotene Moisturizing Rinse] 1 spray PO Q2H PRN #1 bottle PRN Reason: Dry Mouth Home Medications: Allopurinol [Zyloprim] 300 mg PO DAILY 05/29/18 [History] Aspirin [Adult Aspirin Regimen] 81 mg PO DAILY 05/29/18 [History] Atorvastatin [Lipitor] 10 mg PO HS 05/29/18 [History] Cholecalciferol (D-3) [Vitamin D] 1,000 unit PO DAILY 05/29/18 [History] Furosemide [Lasix] 20 mg PO DAILY 05/29/18 [History] Metformin HCl [Glucophage] 1,000 mg PO BID 05/29/18 [History] Omeprazole [PriLOSEC] 40 mg PO BIDAC #60 capsule. 06/13/18 [Rx] Isosorbide MONOnitrate (24 HR) [Imdur] 30 mg PO DAILY 06/23/18 [History] Metoprolol Succinate [Toprol Xl] 12.5 mg PO DAILY 06/23/18 [History] Ascorbic Acid [Vitamin C] 500 mg PO BID #60 tablet 06/26/18 [Rx] Ferrous Sulfate 325 mg PO BIDWM #60 tablet 06/26/18 [Rx] Loratadine [Claritin] 10 mg PO DAILY #30 tablet 06/26/18 [Rx] Saliva Stimulant [Biotene Moisturizing Rinse] 1 spray PO Q2H PRN #1 bottle 06/26 [Rx] Allergies/Adverse Reactions: 3 Allergy/AdvReac Type Severity Reaction Status Date / Time diazepam [From Valium] Allergy Intermediate Unresponsiv Verified 06/10/18 19:36 e Penicillins Allergy Mild Hives Verified 06/10/18 19:36 adhesive tape Allergy Hives Verified 06/10/18 19:36 apixaban Allergy Anaphylaxis Verified 06/10/18 19:36 budesonide Allergy Anaphylaxis Verified 06/10/18 19:36 secobarbital Allergy Anaphylaxis Verified 06/10/18 19:36 albuterol AdvReac Flushing Verified 06/10/18 19:36 Date of admission: 06/23/18 03:47 [facility] care [facility] Consults: 06/23/18 04:49 Consult to Occupational Therapy [CONS] Routine Comment: Evaluate, develop and implement POC Reason for Consult: chf, assess for home safety Does patient have active BEDREST order?: No Is patient medically & hemodynamically stable?: Yes Consult to Physical Therapy [CONS] Routine Comment: Evaluate, develop and implement POC Reason for Consult: chf, assess for home safety Does patient have active BEDREST order?: No Is patient medically & hemodynamically stable?: Yes Discharging clinician: Jennifer Ruth Anticipated date of discharge: 06/26/18 - Constitutional Vitals: Temp Pulse Resp BP Pulse Ox 97.8 F 80 17 120/75 100 06/26/18 11:40 06/26/18 11:40 06/26/18 11:40 06/26/18 11:40 06/26/18 11:40 General appearance: Present: cooperative, A&O X 3, pleasant, no acute distress, answers questions appropriately - Head Head exam: Present: atraumatic, normal inspection, normocephalic - Eye Eye exam: Present: normal appearance, conjuntiva pink, sclera anicteric - Neck Neck exam general surgery: Present: normal inspection, supple, trachea midline. Absent: lymphadenopathy, tenderness, nuchal rigidity - Expanded Neck Exam Neck exam: Absent: tenderness - Respiratory Respiratory exam: Present: CTAB. Absent: accessory muscle use, rales, rhonchi, wheezes - Cardiovascular Cardiovascular exam: Present: RRR, +S1, +S2. Absent: diastolic murmur, gallop, rubs, systolic murmur - GI/Abdominal GI/Abdominal exam: Present: normal bowel sounds, soft. Absent: distended, hepatomegaly, tenderness - Extremities Exam Extremities exam: Present: normal capillary refill, normal inspection, warm, radial pulses palpable and symmetrical. Absent: calf tenderness, cyanotic, pedal edema, tenderness - Neurological Exam Neurological exam: Present: alert, oriented X3, no focal deficits. Absent: facial droop, speech deficit - Skin Skin exam: Present: dry, intact, normal color, warm. Absent: rash - Patient Status Disposition: Home, Self-Care Condition: Good Functional capacity at discharge: uses cane/walker Overall status at discharge: patient is progressing back to baseline - Discharge Instructions [facility] With: [facility] [Primary Care Provider] - Additional Instructions: Follow up with your PCP in the next 3-5 days for a recheck. Take your medications as directed. Your new prescriptions are your pharmacy Return to the ER as needed for any other problems or concerns, or if your symptoms return or worsen. Resume your normal medications and return to your normal diet and activties as tolerated. - Diet and Activity Activity: increase activity as tolerated Diet: advance to your usual diet - VTE Documentation of Mechanical Device: Intermittent pneumatic compression device
[2018-06-26 18:57] VITALS: BP 105/69
== END 2018-06-26 20:12 | disposition home or self-care (01) ==
LOC: 3BNU
PROVIDERS: ADMIT Family Medicine; ATTEND Family Medicine

== ENCOUNTER 2018-07-16 19:51 | Inpatient (IN) ==
[2018-07-16] MEDS ORDERED: Naloxone 0.4 MG/ML INJ IVP PRN (23:59)
--- NOTE | 2018-07-17 00:26 | Internal Med History&Physical ---
<Martín Garcia - Last Filed: 07/17/18 00:40> Date of Encounter: 07/17/18 Time of Encounter: 00:21 Internal Medicine - H&P: HPI Chief complaint: Shortness of breath Admitted From: Home Plans for Post Hospital Care: Home History of present illness: Mr. Llanes is a 83 year old male with history of CAD, diastolic CHF was transferred from [facility] after he presented for shortness of breath. Patient reports his shortness of breath has been active for the past month. Shortness of breath is worse with laying down. Patient has had poor sleep for the last 48 hours (reports 2hours of sleep last night). He reports that [facility] called him and she was concerned that his shortness of breath had worsened, so she called 911. Patient reports he has had worsening lower extremity edema. A low-salt, fluid restricted diet. Patient reports he does not have a scale at home and does not monitor his weight. He is also requiring oxygen supplementation and he does not use oxygen at home. At [facility] patient underwent CTA of chest which was negative for PE, showed bilateral moderate pleural effusions. His hemoglobin was 8.4, at baseline. His serum creatinine is 1.16 which is also a baseline. Past Med Surg Social Fam HX - Past Medical History Medical history: arthritis, cancer, COPD, coronary artery disease, DVT, diabetes , GERD, glaucoma, hyperlipidemia, hypertension, myocardial infarction, peripheral artery disease, TIA, other Additional medical history: MRSA. Neoplasm of ascending colon Psychiatric history: depression - Past Surgical History Surgical History: coronary bypass (CABG), pacemaker Additional surgical history: Braeden Filter, fem pop right leg, broken left ankle, bone spur and cyst left foot, neck and back surgeries - Social History Smoking Status: Former smoker Smokeless Tobacco Status: No Alcohol use: rarely Drug use: none - Family History Father Adopted: No Family Member Ethnicity: Non- Living Status: Hx Family Cardiac Disorders: Yes Hx Family Respiratory Disorders: No Hx Family Cancer: No Hx Family GI Disorders: No Hx Family Endocrine Disorder: No Hx Family Neuromuscular Disorders: No Hx Family Neurologic Disorders: No Hx Family HEENT Disorders: No Hx Family Autoimmune Disorders: No Mother Family Member Ethnicity: Non- Living Status: Hx Family Cardiac Disorders: Yes Hx Family Cancer: Yes Internal Medicine - H&P: Meds Allopurinol [Zyloprim] 300 mg PO DAILY 05/29/18 [History] Aspirin [Adult Aspirin Regimen] 81 mg PO DAILY 05/29/18 [History] Atorvastatin [Lipitor] 10 mg PO HS 05/29/18 [History] Cholecalciferol (D-3) [Vitamin D] 1,000 unit PO DAILY 05/29/18 [History] Furosemide [Lasix] 20 mg PO DAILY 05/29/18 [History] Metformin HCl [Glucophage] 1,000 mg PO BID 05/29/18 [History] Omeprazole [PriLOSEC] 40 mg PO BIDAC #60 capsule. 06/13/18 [Rx] Isosorbide MONOnitrate (24 HR) [Imdur] 30 mg PO DAILY 06/23/18 [History] Metoprolol Succinate [Toprol Xl] 12.5 mg PO DAILY 06/23/18 [History] Ascorbic Acid [Vitamin C] 500 mg PO BID #60 tablet 06/26/18 [Rx] Ferrous Sulfate 325 mg PO BIDWM #60 tablet 06/26/18 [Rx] Loratadine [Claritin] 10 mg PO DAILY #30 tablet 06/26/18 [Rx] Saliva Stimulant [Biotene Moisturizing Rinse] 1 spray PO Q2H PRN #1 bottle 06/26 [Rx] 3 Allergy/AdvReac Type Severity Reaction Status Date / Time diazepam [From Valium] Allergy Intermediate Unresponsiv Verified 06/10/18 19:36 e Penicillins Allergy Mild Hives Verified 06/10/18 19:36 adhesive tape Allergy Hives Verified 06/10/18 19:36 apixaban Allergy Anaphylaxis Verified 06/10/18 19:36 budesonide Allergy Anaphylaxis Verified 06/10/18 19:36 secobarbital Allergy Anaphylaxis Verified 06/10/18 19:36 albuterol AdvReac Flushing Verified 06/10/18 19:36 All Systems PM: A 10-system review of systems was performed and is negative for pertinent findings except as documented above in the HPI. Review of systems: Constitutional: Denies fever, chills HEENT: Denies headache, vision changes, neck pain, sore throat, rhinorrhea Heart: Denies chest pain palpitations Lungs: Reports shortness of breath, cough Abdomen: Denies abdominal pain nausea vomiting diarrhea Back: Denies back pain Kidney: Denies dysuria, hematuria Skin: Denies rash, lesions Extremities: Reports lower extremity swelling. Denies pain Neuro: Denies numbness and tingling - Constitutional Vitals: Temp Pulse Resp BP Pulse Ox 97.9 F 99 16 130/73 99 07/16/18 22:18 07/16/18 22:18 07/16/18 22:18 07/16/18 22:18 07/16/18 22:18 Exam: General: Pleasant male with moderate distress HEENT: Head atraumatic, normocephalic, EOMI, PERRL, neck nontender to palpation , absent lymphadenopathy, Moist Mucous Membranes, Heart: Sinus tachycardia Lungs: Severely diminished bilateral lower lobes. Bilateral upper lobes have some air movement. Patient and respiratory distress breathing with his mouth, using accessory muscles Abdomen: Soft nontender, nondistended positive bowel sounds Skin: warm and dry, absent rash Extremities: 3+ pedal edema bilaterally Neuro: Cranial nerves II through XII intact, UE and LE sensation equal bilaterally, UE and LEstrength 4/5, alert oriented 3, Vascular: Pedal and radial pulses 2 out of 4 - Assessment and plan (1) Acute respiratory failure with hypoxia Current Visit: Yes Status: Acute Assessment and plan: secondary to CHF exacerbation Patient is requiring 2 L oxygen supplementation On exam patient is in moderate distress, using accessory muscles CTA chest completed a Debbi, report states patient has bilateral moderate pleural effusions We will obtain a chest x-ray Plan: Continue oxygen supplementation start patient on IV Lasix. (2) Anemia Current Visit: Yes Status: Acute Assessment and plan: Microcytic hypochromic anemia Patient has history of iron deficiency anemia. He was recently admitted on 06/10 for GI bleed, underwent EGD and colonoscopy. EGD found multiple angiectasia is which were cauterized. Today's hemoglobin is at baseline of 8.4. He denies hematochezia, melena We will repeat CBC. We will start iron supplementation Qualifiers: Anemia type: iron deficiency Iron deficiency anemia type: inadequate dietary iron intake Qualified Code(s): D50.8 - Other iron deficiency anemias (3) CAD (coronary artery disease) Current Visit: Yes Status: Chronic Assessment and plan: Patient has a history of coronary disease Status post CABG Also has pacemaker denies chest pain will continue home aspirin, statin, Qualifiers: Coronary Disease-Associated Artery/Lesion type: bypass graft [place] vs. transplanted heart: [place] heart Associated angina: without angina Qualified Code(s): I25.810 - Atherosclerosis of coronary artery bypass graft(s) without angina pectoris (4) Diabetes Current Visit: Yes Status: Chronic Assessment and plan: controlled non-insulin dependent diabetic diabetic diet SSI ACHS accuchecks Qualifiers: Diabetes mellitus type: type 2 Diabetes mellitus half-way insulin use: without fisher line use Diabetes mellitus complication status: with skin complications Diabetes mellitus complication detail: with dermatitis Qualified Code(s): E11.620 - Type 2 diabetes mellitus with diabetic dermatitis (5) HLD (hyperlipidemia) Current Visit: Yes Status: Chronic Assessment and plan: continue home statin Qualifiers: Hyperlipidemia type: unspecified Qualified Code(s): E78.5 - Hyperlipidemia , unspecified (6) HTN (hypertension) Current Visit: Yes Status: Chronic Assessment and plan: controlled. only on lasix at home. Qualifiers: Hypertension type: essential hypertension Qualified Code(s): I10 - Essential (primary) hypertension (7) Acute on chronic diastolic (congestive) heart failure Current Visit: Yes Status: Acute Assessment and plan: Patient has a history of diastolic heart failure He has 3+ pitting edema bilaterally and bilateral pleural effusions He also has orthopnea Absent JVD Echocardiogram on 06/01/2018 shows a LVEF of 50% with diastolic dysfunction. We will start patient on Lasix 40 mg IV twice a day, cardiac diet, fluid restriction diet, strict I's and O's. If patient continues to be in respiratory distress he will start BiPAP. - Time Spent With Patient Total time spent is greater than 50% in coordination of care (as documented) at patient's floor/unit and/or counseling patient: <Brady Dunlap - Last Filed: 07/17/18 05:56> Date of Encounter: 07/17/18 Time of Encounter: 02:10 - Constitutional Constitutional: weakness, no fever(s) - Cardiovascular Cardiovascular ROS IM: dyspnea, dyspnea on exertion, edema, orthopnea, paroxysmal nocturnal dyspnea, no chest pain - Respiratory Respiratory: no cough, no hemoptysis, no chest congestion, no excessive phlegm production, no change in phlegm color - Genitourinary Genitourinary ROS male: no dysuria, no flank pain - Integumentary Integumentary IM: no rash - Constitutional Vitals: Temp Pulse Resp BP Pulse Ox 97.9 F 98 16 119/75 99 07/17/18 05:00 07/17/18 05:00 07/17/18 05:00 07/17/18 05:00 07/17/18 05:00 General appearance: Present: cooperative, A&O X 3, pleasant, answers questions appropriately Exam: mild to moderate respiratory distress due to fluid overload - Head Head exam: Present: normal inspection - Eye Eye exam: Present: EOMI, PERRL. Absent: scleral icterus Pupils: Present: normal accommodation - ENT ENT exam: Present: normal exam, normal oropharynx - Neck Neck exam general surgery: Present: supple. Absent: tenderness, nuchal rigidity , thyromegaly - Respiratory Respiratory exam: Present: rales (both bases about 1/[address] way up), respiratory distress (mild to moderate), rhonchi, tachypnea. Absent: chest wall tenderness , wheezes - Cardiovascular Cardiovascular exam: Present: distant heart sounds, RRR, +S1, +S2 - GI/Abdominal GI/Abdominal exam: Present: normal bowel sounds, soft. Absent: hepatomegaly, mass, splenomegaly, tenderness - Extremities Exam Extremities exam: Present: full ROM, pedal edema (3+), warm, radial pulses palpable and symmetrical. Absent: calf tenderness, joint swelling, tenderness - Back Exam Back exam: Absent: CVA tenderness (L), CVA tenderness (R) - Neurological Exam Neurological exam: Present: alert, oriented X3, no focal deficits - Psychiatric Psychiatric exam: Present: normal affect, normal mood - Skin Skin exam: Present: dry, intact, warm Internal Med - H&P Results - Labs CBC & Chem 7: 07/17/18 04:50 Labs: Short CBC 07/17/18 Range/Units 04:50 WBC 6.0 (4.3-11.1) K/mcL Hgb 8.6 L (12.9-16.9) g/dL Hct 29.7 L (37.5-50.1) % Plt Count 247 (140-400) K/mcL - Assessment and plan (1) Anemia Current Visit: Yes Status: Acute Qualifiers: Anemia type: iron deficiency Iron deficiency anemia type: inadequate dietary iron intake Qualified Code(s): D50.8 - Other iron deficiency anemias (2) CAD (coronary artery disease) Current Visit: Yes Status: Chronic Qualifiers: Coronary Disease-Associated Artery/Lesion type: bypass graft [place] vs. transplanted heart: [place] heart Associated angina: without angina Qualified Code(s): I25.810 - Atherosclerosis of coronary artery bypass graft(s) without angina pectoris (3) HTN (hypertension) Current Visit: Yes Status: Chronic Qualifiers: Hypertension type: essential hypertension Qualified Code(s): I10 - Essential (primary) hypertension (4) Diabetes Current Visit: Yes Status: Chronic Qualifiers: Diabetes mellitus type: type 2 Diabetes mellitus fisher line insulin use: without fisher line use Diabetes mellitus complication status: with skin complications Diabetes mellitus complication detail: with dermatitis Qualified Code(s): E11.620 - Type 2 diabetes mellitus with diabetic dermatitis (5) HLD (hyperlipidemia) Current Visit: Yes Status: Chronic Qualifiers: Hyperlipidemia type: unspecified Qualified Code(s): E78.5 - Hyperlipidemia , unspecified (6) Acute respiratory failure with hypoxia Current Visit: Yes Status: Acute (7) Acute on chronic diastolic (congestive) heart failure Current Visit: Yes Status: Acute - Time Spent With Patient Total time spent is greater than 50% in coordination of care (as documented) at patient's floor/unit and/or counseling patient: - Attending Attestation I discussed the patient [employer], past medical history, review of systems, lab data , and exam findings with Dr. Garcia. I then saw and examined patient independently. I also reviewed the records from [facility] and EKGs as well. Patient has chronic diastolic heart failure and, based upon history, appears to have an acute process evolving over the last few weeks. He has had worsening dyspnea, lower extremity edema, orthopnea, paroxysmal nocturnal dyspnea, and subjective weight gain over last few weeks. He denies any chest pain, cough, or wheezing. He now is exhibiting some mild to moderate respiratory distress. We will try and diuresis him and support him from a respiratory standpoint. If he fails this, my next maneuver would be to place him on BiPAP as a bridge to avoid intubation and mechanical ventilation. Patient is highly anxious and nervous to be placed on BiPAP. I discussed this at length with him and encouraged him to use it if necessary as a means to avoid intubation. I do not feel that he will progress to that. However, he is in respiratory distress and in need of ongoing support. He voiced understanding and agreement with this with our plan. Other than my comments above and noted physical exam findings, I agree with Dr. Garcia's assessment and plan.
[2018-07-17] MEDS ORDERED: *HR* Dextrose 50 % in Water (Syg) 50 ML SYRINGE IVP PRN (00:29)
[2018-07-17] MEDS ORDERED: Dextrose Gel 15 GM/37.5 ML TUBE PO PRN ×2 (00:29)
[2018-07-17] MEDS ORDERED: D5% in Water 1,000 ML IVC PRN (00:29)
[2018-07-17] MEDS: Furosemide 40 MG/4 ML VIAL IVP SCH ×3 (01:10→16:44)
[2018-07-17] MEDS: Ondansetron 4 MG/2 ML VIAL IVP PRN ×2 (01:30→16:44)
[2018-07-17] MEDS ORDERED: Benzonatate 100 MG CAPSULE PO PRN (03:54)
[2018-07-17 05:15] LABS: Hematocrit 29.7 % (37.5-50.1); Hemoglobin 8.6 g/dL (12.9-16.9); Mean Corpuscular Hemoglobin 23.9 pg (28.0-33.3); Mean Platelet Volume 10.5 fL (9.4-12.4); Platelet Count 247 K/mcL (140-400); Red Cell Distribution Width 22.6 % (11.5-14.5)
[2018-07-17 05:19] LABS: Mean Corpuscular Volume 82.5 fL (83.0-100.0)
[2018-07-17] MEDS: *HR* Heparin 5,000 UNIT/ML VIAL SQ SCH ×3 (06:18→20:22)
[2018-07-17 07:56] LABS: BUN/Creatinine Ratio 15 (6-26); Blood Urea Nitrogen 16 mg/dL (8-23); Carbon Dioxide 19 mEq/L (23-29); Chloride 103 mEq/L (98-107); Glucose 177 mg/dL (70-105); Osmolality,Calculated 282 (280-300); Sodium 133 mEq/L (136-145); eGFR For Non-African Americans > 60 (> 60)
[2018-07-17] MEDS: Iron Polysaccharide Complex 150 MG CAPSULE PO SCH (08:10)
[2018-07-17] MEDS: Insulin LISPRO 300 UNITS/3 ML VIAL SQ SCH ×4 (08:10→20:22)
[2018-07-17] MEDS ORDERED: Aspirin 81 MG TAB.CHEW PO SCH (09:00)
--- NOTE | 2018-07-17 16:08 | Event Note ---
Date of Encounter: 07/17/18 Time of Encounter: 12:00 83-year-old male with history of CAD status post CABG, diastolic CHF status post pacemaker and AICD placement, paroxysmal atrial fibrillation, diabetes admitted with worsening leg swelling and shortness of breath. Patient seen and examined. Continues to have leg swelling but denies chest pain or shortness of breath. Chest- S1, S2 heard, irregular rate, tachycardic; Lungs with bibasal crackles Acute exacerbation of CHF-diastolic. Echocardiogram in May 2018 showed preserved EF and diastolic dysfunction. Continue diuresis with IV Lasix with strict urine output monitoring and fluid restriction. This is a discrepancy in patient's beta ana luisa dosing, noted to be tachycardic, will start metoprolol 25 mg twice daily at this time. Continue telemetry monitoring. Paroxysmal atrial fibrillation- start beta ana luisa as above; not on anticoagulation due to h/o- blood loss anemia and GI bleed from vascular ectasias; Diabetes mellitus with sliding CAD status post CABG Peripheral arterial disease Depression History of GI bleed
[2018-07-18] MEDS ORDERED: MOM Conc 10 ML UD.LIQ PO ONE (01:34)
[2018-07-18] MEDS: Ondansetron 4 MG/2 ML VIAL IVP PRN (01:41)
[2018-07-18 05:46] LABS: Calcium 8.8 mg/dL (8.6-10.3); Magnesium 2.4 mg/dL (1.6-2.6); Potassium 4.4 mEq/L (3.5-5.1)
[2018-07-18] MEDS: *HR* Heparin 5,000 UNIT/ML VIAL SQ SCH ×3 (05:55→20:43)
[2018-07-18] MEDS: Aspirin Enteric Coated 81 MG Tablet PO SCH (09:37)
[2018-07-18] MEDS: Isosorbide MONOnitrate (24 HR) 30 MG TAB.ER.24H PO SCH (09:37)
[2018-07-18] MEDS: Furosemide 40 MG/4 ML VIAL IVP SCH ×2 (09:37→17:48)
[2018-07-18] MEDS: Iron Polysaccharide Complex 150 MG CAPSULE PO SCH (09:37)
[2018-07-18] MEDS: Insulin LISPRO 300 UNITS/3 ML VIAL SQ SCH ×4 (09:37→23:21)
[2018-07-18] MEDS: Sennosides/Docusate Sodium TABLET PO SCH ×2 (15:19→20:43)
--- NOTE | 2018-07-18 15:59 | Internal Med Progress Note ---
Hospitalist Progress Note - Encounter Date of Encounter: 07/18/18 Time of Encounter: 11:15 - Subjective Interval History: Reports having dry cough, postnasal drip, chest pain associated with coughing bouts last night. Required supplemental oxygen last night. Currently feels well. No shortness of breath, wheezing, palpitations. Continues to have leg swelling. - Exam Vitals: Temp Pulse Resp BP Pulse Ox 98.0 F 77 16 102/67 96 07/18/18 15:00 07/18/18 15:00 07/18/18 15:00 07/18/18 15:00 07/18/18 15:00 Exam: General: Well-developed female lying comfortably in bed in no acute distress Skin: Warm and supple Chest: Normal thoracic expansion. coarse breath sounds. faint bibasal crackles Heart: Normal S1 & S2; rhythmic. No rubs or murmurs. Abdomen: Non-distended, soft and nontender Extremities: B/L 2+ pedal edema, extending up to thighs Neurological: Awake, alert and oriented to person, place and time. No focal deficits. Psych: Affect appropriate. - Assessment and Plan (1) Acute on chronic diastolic (congestive) heart failure Current Visit: Yes Status: Acute Assessment and Plan: Echocardiogram in May 2018 showed preserved EF and diastolic dysfunction. Continue diuresis with IV Lasix with strict urine output monitoring and fluid restriction. Urine output not charted accurately; Serum creatinine slightly worse at 1.39, continue to monitor closely in the setting of IV Lasix. continue metoprolol 25 mg twice daily, HR improved. on Imdur, ASA and statin. Continue telemetry monitoring. Physical and occupational therapy evaluation and recommend home health services , social service manager on board. (2) HTN (hypertension) Current Visit: Yes Status: Chronic Assessment and Plan: BP low normal; continue to monitor closely; (3) Diabetes Current Visit: Yes Status: Chronic Assessment and Plan: Blood sugars noted to be well controlled. Continue Accu-Chek blood glucose monitoring with sliding scale insulin as needed. Diabetic diet. (4) HLD (hyperlipidemia) Current Visit: Yes Status: Chronic (5) Acute respiratory failure with hypoxia Current Visit: Yes Status: Acute Assessment and Plan: Patient is noted to be requiring nocturnal oxygen. Overnight pulse oximetry testing. (6) Paroxysmal atrial fibrillation Current Visit: Yes Status: Chronic Assessment and Plan: Currently rate controlled. Continue telemetry monitoring and beta ana luisa. Taken off anticoagulation due to history of blood loss anemia and GI bleed. - Time Spent with Patient Total time spent is greater than 50% in coordination of care (as documented) at patient's floor/unit and/or counseling patient: Plan of Care Discussed with: patient Internal Medicine: Result - Labs CBC & Chem 7: 07/17/18 04:50 07/18/18 05:06 Labs: BMP 07/18/18 05:06 Sodium 133 L Potassium 4.4 Chloride 100 Carbon Dioxide 21 L BUN 23 Creatinine 1.39 H Glucose 149 H Calcium 8.8 Consult Discharge Plan - Plan [facility]errals: [facility] [Primary Care Provider] - (2) HTN (hypertension) Qualifiers: Hypertension type: essential hypertension Qualified Code(s): I10 - Essential (primary) hypertension (3) Diabetes Qualifiers: Diabetes mellitus type: type 2 Diabetes mellitus intermediate insulin use: without watermelon harvesting supervisor use Diabetes mellitus complication status: with unspecified complications Qualified Code(s): E11.8 - Type 2 diabetes mellitus with unspecified complications (4) HLD (hyperlipidemia) Qualifiers: Hyperlipidemia type: unspecified Qualified Code(s): E78.5 - Hyperlipidemia, unspecified
[2018-07-19 05:08] LABS: Calcium 8.5 mg/dL (8.6-10.3); Magnesium 2.4 mg/dL (1.6-2.6); Potassium 3.8 mEq/L (3.5-5.1)
[2018-07-19] MEDS: *HR* Heparin 5,000 UNIT/ML VIAL SQ SCH ×3 (06:37→21:38)
[2018-07-19] MEDS: Insulin LISPRO 300 UNITS/3 ML VIAL SQ SCH ×4 (08:29→21:32)
[2018-07-19] MEDS: Sennosides/Docusate Sodium TABLET PO SCH ×2 (08:43→21:39)
[2018-07-19] MEDS: Furosemide 40 MG/4 ML VIAL IVP SCH ×2 (08:43→16:06)
[2018-07-19] MEDS: Iron Polysaccharide Complex 150 MG CAPSULE PO SCH (08:43)
[2018-07-19] MEDS: Isosorbide MONOnitrate (24 HR) 30 MG TAB.ER.24H PO SCH (08:43)
[2018-07-19] MEDS: Aspirin Enteric Coated 81 MG Tablet PO SCH (08:43)
--- NOTE | 2018-07-19 14:21 | Internal Med Progress Note ---
Hospitalist Progress Note - Encounter Date of Encounter: 07/19/18 Time of Encounter: 11:15 - Subjective Interval History: Patient is noted to be irritable today and reports subjective dyspnea; not requiring supplemental O2; no chest pain, palpitations, fever/chills; improving leg swelling; - Exam Vitals: Temp Pulse Resp BP Pulse Ox 97.6 F 89 18 118/65 96 07/19/18 10:36 07/19/18 10:36 07/19/18 10:36 07/19/18 10:36 07/19/18 10:36 Exam: General: Well-developed male sitting up at the edge of the bed; mild distress noted Skin: Warm and supple Chest: Normal thoracic expansion. coarse breath sounds. faint bibasal crackles Heart: Normal S1 & S2; irregular; Abdomen: Non-distended, soft and nontender Extremities: B/L 2+ pedal edema, upto knees, improved since yesterday Neurological: Awake, alert and oriented to person, place and time. No focal deficits. Psych: Affect appropriate. - Assessment and Plan (1) Acute on chronic diastolic (congestive) heart failure Current Visit: Yes Status: Acute Assessment and Plan: Echocardiogram in May 2018 showed preserved EF and diastolic dysfunction. Continue diuresis with IV Lasix with strict urine output monitoring and fluid restriction. Urine output not charted accurately; Serum creatinine stable at 1.37, continue to monitor closely in the setting of IV Lasix. continue metoprolol 25 mg twice daily. on Imdur, ASA and statin. Continue telemetry monitoring. Physical and occupational therapy evaluation recommend home health services, social media editor on board. (2) HTN (hypertension) Current Visit: Yes Status: Chronic Assessment and Plan: BP low normal; continue to monitor closely; (3) Diabetes Current Visit: Yes Status: Chronic Assessment and Plan: Blood sugars noted to be well controlled. Continue Accu-Chek blood glucose monitoring with sliding scale insulin as needed. Diabetic diet. (4) HLD (hyperlipidemia) Current Visit: Yes Status: Chronic (5) Acute respiratory failure with hypoxia Current Visit: Yes Status: Acute Assessment and Plan: Patient did not require nocturnal supplemental O2; (6) Paroxysmal atrial fibrillation Current Visit: Yes Status: Chronic Assessment and Plan: Currently rate controlled. Continue telemetry monitoring and beta ana luisa. Taken off anticoagulation due to history of blood loss anemia and GI bleed. - Time Spent with Patient Total time spent is greater than 50% in coordination of care (as documented) at patient's floor/unit and/or counseling patient: Plan of Care Discussed with: patient Internal Medicine: Result - Labs CBC & Chem 7: 07/17/18 04:50 07/19/18 04:23 Labs: BMP 07/19/18 04:23 Sodium 130 L Potassium 3.8 Chloride 96 L Carbon Dioxide 25 BUN 27 H Creatinine 1.37 H Glucose 143 H Calcium 8.5 L Consult Discharge Plan - Plan Referrals: [facility] [Primary Care Provider] - (2) HTN (hypertension) Qualifiers: Hypertension type: essential hypertension Qualified Code(s): I10 - Essential (primary) hypertension (3) Diabetes Qualifiers: Diabetes mellitus type: type 2 Diabetes mellitus fdc insulin use: without ad terminal makeup operator use Diabetes mellitus complication status: with unspecified complications Qualified Code(s): E11.8 - Type 2 diabetes mellitus with unspecified complications (4) HLD (hyperlipidemia) Qualifiers: Hyperlipidemia type: unspecified Qualified Code(s): E78.5 - Hyperlipidemia, unspecified
[2018-07-19] MEDS: Ondansetron 4 MG/2 ML VIAL IVP PRN (16:00)
[2018-07-20 05:33] LABS: Calcium 8.5 mg/dL (8.6-10.3)
[2018-07-20] MEDS: *HR* Heparin 5,000 UNIT/ML VIAL SQ SCH ×3 (05:47→20:35)
[2018-07-20] MEDS: Aspirin Enteric Coated 81 MG Tablet PO SCH (09:23)
[2018-07-20] MEDS: Iron Polysaccharide Complex 150 MG CAPSULE PO SCH (09:23)
[2018-07-20] MEDS: Sennosides/Docusate Sodium TABLET PO SCH ×2 (09:23→20:34)
[2018-07-20] MEDS: Isosorbide MONOnitrate (24 HR) 30 MG TAB.ER.24H PO SCH (09:23)
[2018-07-20] MEDS: Furosemide 40 MG/4 ML VIAL IVP SCH ×2 (09:26→16:44)
[2018-07-20] MEDS: Insulin LISPRO 300 UNITS/3 ML VIAL SQ SCH ×4 (09:26→20:35)
[2018-07-20] MEDS ORDERED: GuaiFENesin Liq 200 MG/10 ML UDC PO PRN (10:32)
--- NOTE | 2018-07-20 15:59 | Internal Med Progress Note ---
Hospitalist Progress Note - Encounter Date of Encounter: 07/20/18 Time of Encounter: 11:45 - Subjective Interval History: continues to have dry cough, post nasal drip, exertional dyspnea; also noted to be intermittently hypoxic, now on NC O2; no fever, chills, chest pain, palpitations; leg swelling is slowly improving; - Exam Vitals: Temp Pulse Resp BP Pulse Ox 97.5 F L 84 20 105/67 98 07/20/18 11:54 07/20/18 11:54 07/20/18 11:54 07/20/18 11:54 07/20/18 11:54 Exam: General: Well-developed male sitting up at the edge of the bed; mild distress noted, hacking cough+ Skin: Warm and supple Chest: Normal thoracic expansion. coarse breath sounds. faint bibasal crackles Heart: Normal S1 & S2; irregular; Abdomen: Non-distended, soft and nontender Extremities: B/L 2+ pedal edema, upto knees, improving; Neurological: Awake, alert and oriented to person, place and time. No focal deficits. Psych: Affect appropriate. - Assessment and Plan (1) Acute on chronic diastolic (congestive) heart failure Current Visit: Yes Status: Acute Assessment and Plan: Echocardiogram in May 2018 showed preserved EF and diastolic dysfunction. Continue diuresis with IV Lasix with strict urine output monitoring and fluid restriction. Urine output not charted accurately, will start indwelling Zeng catheter; CT chest shows moderate B/L pleural effusions and atelectasis; will plan for thoracentesis in am; Serum creatinine stable at 1.37, continue to monitor closely in the setting of IV Lasix. continue metoprolol 25 mg twice daily. on Imdur, ASA and statin. Continue telemetry monitoring. Physical and occupational therapy evaluation recommend home health services, social science manager on board. (2) HTN (hypertension) Current Visit: Yes Status: Chronic (3) Diabetes Current Visit: Yes Status: Chronic Assessment and Plan: Blood sugars noted to be well controlled. Continue Accu-Chek blood glucose monitoring with sliding scale insulin as needed. Diabetic diet. (4) HLD (hyperlipidemia) Current Visit: Yes Status: Chronic (5) Acute respiratory failure with hypoxia Current Visit: Yes Status: Acute Assessment and Plan: Patient requires intermittent supplemental O2 via NC; he would probably benefit from home O2; will d/w CM tomorrow; Postnasal drip and cough likely due to allergies and reactive airway disease; patient also has allergies listed to ICS, Albuterol; will try Claritin; (6) Paroxysmal atrial fibrillation Current Visit: Yes Status: Chronic Assessment and Plan: Currently rate controlled. Continue telemetry monitoring and beta ana luisa. Taken off anticoagulation due to history of blood loss anemia and GI bleed. - Time Spent with Patient Total time spent is greater than 50% in coordination of care (as documented) at patient's floor/unit and/or counseling patient: Plan of Care Discussed with: patient Internal Medicine: Result - Labs CBC & Chem 7: 07/17/18 04:50 07/20/18 04:52 Labs: BMP 07/20/18 04:52 Sodium 132 L Potassium 4.0 Chloride 99 Carbon Dioxide 26 BUN 28 H Creatinine 1.37 H Glucose 195 H Calcium 8.5 L Cardiac Enzymes 07/20/18 Range/Units 10:40 Troponin I < 0.03 (< 0.04) ng/mL - Impressions Impressions Chest CT 07/20/18 10:46 IMPRESSION: Moderate bilateral pleural effusions with adjacent consolidation, atelectasis favored over pneumonia. Findings appear similar to the prior examination of 07/16/2018. Small amount of perihepatic ascites. 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
[2018-07-20] MEDS: Loratadine/Pseudophed (12 HR) 1 EACH TABLET PO SCH (22:43)
[2018-07-21] MEDS: *HR* Heparin 5,000 UNIT/ML VIAL SQ SCH ×2 (06:30→15:12)
[2018-07-21 06:32] LABS: BUN/Creatinine Ratio 20 (6-26); Blood Urea Nitrogen 25 mg/dL (8-23); Calcium 8.5 mg/dL (8.6-10.3); Carbon Dioxide 25 mEq/L (23-29); Chloride 99 mEq/L (98-107); Glucose 149 mg/dL (70-105); Osmolality,Calculated 279 (280-300); Potassium 4.6 mEq/L (3.5-5.1); Sodium 131 mEq/L (136-145); eGFR For Non-African Americans 56 (> 60)
[2018-07-21] MEDS: Furosemide 40 MG/4 ML VIAL IVP SCH (08:46)
[2018-07-21] MEDS: Insulin LISPRO 300 UNITS/3 ML VIAL SQ SCH ×2 (08:46→12:13)
[2018-07-21] MEDS: Iron Polysaccharide Complex 150 MG CAPSULE PO SCH (08:47)
[2018-07-21] MEDS: Aspirin Enteric Coated 81 MG Tablet PO SCH (08:47)
[2018-07-21] MEDS: Sennosides/Docusate Sodium TABLET PO SCH (08:47)
[2018-07-21] MEDS: Loratadine/Pseudophed (12 HR) 1 EACH TABLET PO SCH (08:47)
[2018-07-21] MEDS: Isosorbide MONOnitrate (24 HR) 30 MG TAB.ER.24H PO SCH (08:47)
--- NOTE | 2018-07-21 12:24 | IR Procedure Note ---
Date of procedure: 07/21/18 Consent Obtained: Verbal consent, Written consent Timeout: Correct patient and procedure verified, Correct site verified, Time out performed, Skin prep completed Local anesthetic: Lidocaine 1% Indications: pleural effusion, shortness breath Procedure Performed: right thoracentesis Was there an spa assistant manager present: No Site/Technique: right chest Results/Findings: large pleural effusion, drained 1350 cc straw color fluid Estimated blood loss (cc): 0 Complications: None; Tolerated procedure well Post Procedure Treatment Plan: xray Specimen: pleural fluid
[2018-07-21 15:25] VITALS: BP 104/55
--- NOTE | 2018-07-21 15:37 | Discharge Summary ---
- NOTES TO OUTPATIENT PROVIDER Notes to Outpatient Provider: Acute diastolic CHF and B/L pleural effusions, s/ p right thoracentesis; discharged on home health services; Orders not resulted at time of discharge: Pending orders 07/21/18 10:12 IR thoracentesis RIGHT [IR] Routine Date of Encounter: 07/21/18 Time of Encounter: 12:00 - Discharge Diagnosis (1) Acute on chronic diastolic (congestive) heart failure Priority: Primary Status: Acute (2) HTN (hypertension) Priority: Secondary Status: Chronic Qualifiers: Hypertension type: essential hypertension Qualified Code(s): I10 - Essential (primary) hypertension (3) Diabetes Priority: Secondary Status: Chronic Qualifiers: Diabetes mellitus type: type 2 Diabetes mellitus creative/art director insulin use: without senior living use Diabetes mellitus complication status: with unspecified complications Qualified Code(s): E11.8 - Type 2 diabetes mellitus with unspecified complications (4) HLD (hyperlipidemia) Priority: Secondary Status: Chronic Qualifiers: Hyperlipidemia type: unspecified Qualified Code(s): E78.5 - Hyperlipidemia , unspecified (5) Acute respiratory failure with hypoxia Priority: Primary Status: Resolved (6) Paroxysmal atrial fibrillation Priority: Secondary Status: Chronic Hospital course: Mr. Llanes is a 83 year old male with h/o- CHF, admitted with worsening leg swelling and dyspnea. He was noted to be in an acute exacerbation of diastolic CHF, started on IV diuresis and fluid restriction. Echocardiogram in May 2018 showed preserved EF and diastolic dysfunction. He was recently admitted for similar reasons, and noted to be noncompliant with sodium and fluid restriction. He did not have significant urine output and had episodes of post nasal drip and cough and chest pain. Telemetry was uneventful and Troponin was normal. CT chest showed B/L moderate pleural effusions, and he underwent right-sided IR thoracentesis. He feels better and not requiring supplemental O2 even on 6-min walk test. Post-procedure chest XRay showed no pneumothorax. PT/OT evaluation recommended [facility], referral completed. He is medically stable for discharge. Discharge discussed with: patient, nurse - Time Spent with Patient Total time spent providing and/or coordinating discharge services: Greater than 30 minutes (45 min) - Discharge Medications Prescriptions: Furosemide [Lasix] 40 mg PO BID #60 tablet Metoprolol [Lopressor] 25 mg PO BID #60 tablet Home Medications: Allopurinol [Zyloprim] 300 mg PO DAILY 05/29/18 [History] Aspirin [Adult Aspirin Regimen] 81 mg PO DAILY 05/29/18 [History] Atorvastatin [Lipitor] 20 mg PO HS 05/29/18 [History] Cholecalciferol (D-3) [Vitamin D] 1,000 unit PO DAILY 05/29/18 [History] Metformin HCl [Glucophage] 1,000 mg PO BID 05/29/18 [History] Isosorbide MONOnitrate (24 HR) [Imdur] 30 mg PO DAILY 06/23/18 [History] Saliva Stimulant [Biotene Moisturizing Rinse] 1 spray PO Q2H PRN #1 bottle 06/26 [Rx] DiphenhydraMINE [Benadryl] 25 mg PO BID PRN 07/17/18 [History] Polyethylene Glycol 3350 [MiraLAX] 17 gm PO DAILY PRN 07/17/18 [History] Furosemide [Lasix] 40 mg PO BID #60 tablet 07/21/18 [Rx] Metoprolol [Lopressor] 25 mg PO BID #60 tablet 07/21/18 [Rx] Allergies/Adverse Reactions: 3 Allergy/AdvReac Type Severity Reaction Status Date / Time diazepam [From Valium] Allergy Intermediate Unresponsiv Verified 07/17/18 10:08 e Penicillins Allergy Mild Hives Verified 07/17/18 10:08 adhesive tape Allergy Hives Verified 07/17/18 10:08 apixaban Allergy Anaphylaxis Verified 07/17/18 10:08 budesonide Allergy Anaphylaxis Verified 07/17/18 10:08 secobarbital Allergy Anaphylaxis Verified 07/17/18 10:08 albuterol AdvReac [place] Verified 07/17/18 10:08 Date of admission: 07/17/18 16:47 [facility] care physician[facility] Consults: 07/16/18 23:59 Consult to Nurse Navigator [CONS] Routine Comment: 07/17/18 02:09 Consult to Waste Water Or Water Plant Operator [CONS] Routine Reason for SW Consult: [facility] is [facility] [place] [facility], Follow up upon discharge 07/17/18 16:01 Consult to Occupational Therapy [CONS] Routine Comment: Evaluate, develop and implement POC Reason for Consult: Evaluate for possible rehab at discharge Does patient have active BEDREST order?: No Is patient medically & hemodynamically stable?: Yes Consult to Physical Therapy [CONS] Routine Comment: Evaluate, develop and implement POC Reason for Consult: Evaluate for possible rehab at discharge Does patient have active BEDREST order?: No Is patient medically & hemodynamically stable?: Yes 07/21/18 10:12 Consult to Interventional Radiology [CONS] Routine Consulting Provider: Radiology Interventional [place] Reason for Consult: Right-sided thoracentesis for pleural effusions from CHF Call Completed: No Discharging clinician: Carmela Durán Anticipated date of discharge: 07/21/18 - Constitutional Vitals: Temp Pulse Resp BP Pulse Ox 97.7 F 80 15 104/55 97 07/21/18 15:00 07/21/18 15:00 07/21/18 15:00 07/21/18 15:00 07/21/18 15:00 General appearance: Present: cooperative, A&O X 3, pleasant, answers questions appropriately Exam: . - Respiratory Respiratory exam: Present: CTAB. Absent: accessory muscle use, rales, rhonchi, wheezes - Patient Status Disposition: Home Health Service Condition: Fair Functional capacity at discharge: independent ambulation Overall status at discharge: patient is progressing back to baseline - Discharge Instructions Instructions: Myocardial Infarction (DC), Heart Failure (DC), Atrial Flutter ( DC), Atrial Fibrillation (DC), Chest Pain (DC), Acute Respiratory Distress Syndrome (DC), Diabetes Mellitus Type 2 in Adults (DC), Upper Gastrointestinal Endoscopy (DC), Chronic Hypertension (DC), Anemia (GEN), Pneumonia (DC) [facility]: [facility] Provider[facility] - (left a message for them to call me back to make a appt.) Additional Instructions: We set you up with [facility] for Physical Therapy/OT F/up with PCP in 1-2 weeks - Diet and Activity Activity: as per physical therapy Diet: diabetic diet, low fat, low cholesterol, low salt diet, other (fluid restriction to 1.2L/day)
--- NOTE | 2018-07-21 15:40 | Physician Discharge Referral ---
Home Health/Hosp Referral Info Transfer to: Home Health Attending Provider: Carmela Durán Provider in Charge Post Discharge: PCP - Diagnosis (1) Acute on chronic diastolic (congestive) heart failure Priority: Primary Status: Acute (2) HTN (hypertension) Priority: Secondary Status: Chronic (3) Diabetes Priority: Secondary Status: Chronic (4) HLD (hyperlipidemia) Priority: Secondary Status: Chronic (5) Acute respiratory failure with hypoxia Priority: Primary Status: Resolved (6) Paroxysmal atrial fibrillation Priority: Secondary Status: Chronic - Respiratory Orders Smoking Cessation: Smoking cessation has been advised. For more information, call the [place] Tobacco Quit Line at 3-813-UCZV-NOW. - Diet/Nutrition Diet/Nutrition Orders: Cardiac (fluid restriction to 1.2L/day), No Concentrated Sweets (diabetic) - Activity Activity Orders: Ambulate - Services Needed Following services are medically necessary services: Nursing, Physical Therapy, Occupational Therapy - Transfer Medications Prescriptions: Furosemide [Lasix] 40 mg PO BID #60 tablet Metoprolol [Lopressor] 25 mg PO BID #60 tablet Home Medications: Allopurinol [Zyloprim] 300 mg PO DAILY 05/29/18 [History] Aspirin [Adult Aspirin Regimen] 81 mg PO DAILY 05/29/18 [History] Atorvastatin [Lipitor] 20 mg PO HS 05/29/18 [History] Cholecalciferol (D-3) [Vitamin D] 1,000 unit PO DAILY 05/29/18 [History] Metformin HCl [Glucophage] 1,000 mg PO BID 05/29/18 [History] Isosorbide MONOnitrate (24 HR) [Imdur] 30 mg PO DAILY 06/23/18 [History] Saliva Stimulant [Biotene Moisturizing Rinse] 1 spray PO Q2H PRN #1 bottle 06/26 [Rx] DiphenhydraMINE [Benadryl] 25 mg PO BID PRN 07/17/18 [History] Polyethylene Glycol 3350 [MiraLAX] 17 gm PO DAILY PRN 07/17/18 [History] Furosemide [Lasix] 40 mg PO BID #60 tablet 07/21/18 [Rx] Metoprolol [Lopressor] 25 mg PO BID #60 tablet 07/21/18 [Rx] Allergies/Adverse Reactions: 3 Allergy/AdvReac Type Severity Reaction Status Date / Time diazepam [From Valium] Allergy Intermediate Unresponsiv Verified 07/17/18 10:08 e Penicillins Allergy Mild Hives Verified 07/17/18 10:08 adhesive tape Allergy Hives Verified 07/17/18 10:08 apixaban Allergy Anaphylaxis Verified 07/17/18 10:08 budesonide Allergy Anaphylaxis Verified 07/17/18 10:08 secobarbital Allergy Anaphylaxis Verified 07/17/18 10:08 albuterol AdvReac [place] Verified 07/17/18 10:08 Certification: Further, I certify that my clinical findings support that this patient is homebound (i.e. absences from home require considerable and taxing effort and are for medical reasons or yazidism services or infrequently or short duration when for other reasons) because: Homebound Reason: Patient requires assistance of a person or device to safely leave home, Leaving home requires considerable and taxing effort due to condition, Severity of cardiac or pulmonary status limits activity tolerance Attestation: My signature below is to certify that this patient is under my care and that I, or nurse practitioner, or a physician's clinic assistant working with me, has a face-to -face encounter with this patient.
== END 2018-07-21 17:25 | disposition home health service (06) | DRG 291 ==
LOC: 2NENU → SUATTDRO 22:01
PROVIDERS: ADMIT Internal Medicine; ATTEND Internal Medicine

== ENCOUNTER 2018-08-15 12:46 | Inpatient (IN) ==
[2018-08-15] MEDS ORDERED: Pantoprazole 80 MG in 0.9 % Sodium Chloride 50 ML IVPB ONE (12:57)
--- NOTE | 2018-08-15 13:09 | Emergency Department Note ---
Disposition Clinical Impression: Lower gastrointestinal hemorrhage Disposition: Admitted As Inpatient General Adult HPI - General Chief complaint: ED GI Bleed Stated complaint: possible GI [facility] - History of Present Illness HPI Narrative: ED attending Attestation note Patient was seen with the emergency medicine resident Jennifer Joseph: I have independently evaluated the patient and have had [id number] contact with the patient. I have reviewed the history and physical, evaluation and management plan in addition to the pertinent laboratory, ancillary and imaging studies along with consultation recommendations if applicable. I agree with their evaluation, management and disposition. Briefly: A 83-year-old male transferred from the [facility] for profound anemia secondary to GI bleeding. Patient has history of colon cancer. He arrives pale and weak. Hemoglobin 6.3, lactate of 12 but that was on i-STAT. Patient is getting emergent transfusion of 2 units PRBCs those orders have been initiated. Patient will get repeat screening labs including troponin lactic acid. Patient will be admitted with GI consultation. Providing 45 minutes critical care services to this patient. Admission disposition pending - Related Data Home Medications Medication Instructions Recorded Confirmed Allopurinol [Zyloprim] 300 mg PO DAILY 05/29/18 07/17/18 Aspirin [Adult Aspirin Regimen] 81 mg PO DAILY 05/29/18 07/17/18 Atorvastatin [Lipitor] 20 mg PO HS 05/29/18 07/17/18 Cholecalciferol (D-3) [Vitamin D] 1,000 unit PO DAILY 05/29/18 07/17/18 Metformin HCl [Glucophage] 1,000 mg PO BID 05/29/18 07/17/18 Isosorbide MONOnitrate (24 HR) 30 mg PO DAILY 06/23/18 07/17/18 [Imdur] DiphenhydraMINE [Benadryl] 25 mg PO BID PRN 07/17/18 07/17/18 Polyethylene Glycol 3350 [MiraLAX] 17 gm PO DAILY PRN 07/17/18 07/17/18 Previous Rx's Medication Instructions Recorded Saliva Stimulant [Biotene 1 spray PO Q2H PRN #1 bottle 06/26/18 Moisturizing Rinse] Furosemide [Lasix] 40 mg PO BID #60 tablet 07/21/18 Metoprolol [Lopressor] 25 mg PO BID #60 tablet 07/21/18 Allergies Allergy/AdvReac Type Severity Reaction Status Date / Time diazepam [From Valium] Allergy Intermediate Unresponsiv Verified 08/15/18 12:53 e Penicillins Allergy Mild Hives Verified 08/15/18 12:53 adhesive tape Allergy Hives Verified 08/15/18 12:53 apixaban Allergy Anaphylaxis Verified 08/15/18 12:53 budesonide Allergy Anaphylaxis Verified 08/15/18 12:53 secobarbital Allergy Anaphylaxis Verified 08/15/18 12:53 albuterol AdvReac Flushing Verified 08/15/18 12:53 Past Medical History - Past Medical History Medical history: Reports: arthritis, cancer, COPD, coronary artery disease, DVT , diabetes, GERD, glaucoma, hyperlipidemia, hypertension, myocardial infarction , peripheral artery disease, TIA, other Surgical history: Reports: coronary bypass (CABG), pacemaker Psychiatric history: Reports: depression - Social History Smoking Status: Former smoker Smokeless Tobacco Status: No Alcohol use: Reports: rarely Drug use: Reports: none Course Vital Signs O2 Sat by Pulse Oximetry 100 08/15/18 12:59 O2 Sat by Pulse Oximetry 100 08/15/18 12:59
[2018-08-15] MEDS ORDERED: 0.9 % Sodium Chloride 250 ML ONE ×2 (13:16→22:59)
[2018-08-15 13:22] LABS: Basophils % 0.2 %; Immature Granulocytes % 0.3 % (0-4)
[2018-08-15 13:23] LABS: Hematocrit 19.9 % (37.5-50.1); Lymphocytes # 0.7 K/mcL (0.6-4.6); Mean Corpuscular HGB Conc 28.1 g/dL (31.6-35.5); Mean Corpuscular Hemoglobin 21.7 pg (28.0-33.3); Mean Corpuscular Volume 77.1 fL (83.0-100.0); Mean Platelet Volume 10.6 fL (9.4-12.4); Monocytes # 0.5 K/mcL (0.0-1.3); Monocytes % 8.2 %; Neutrophils # 5.3 K/mcL (1.6-8.9); Platelet Count 208 K/mcL (140-400); Red Blood Count 2.58 M/mcL (4.19-5.50); Red Cell Distribution Width 19.5 % (11.5-14.5); Segmented Neutrophils % 80.3 %
--- NOTE | 2018-08-15 13:23 | Emergency Department Note ---
Disposition Clinical Impression: Lower gastrointestinal hemorrhage Disposition: Admitted As Inpatient Condition: Fair [facility]Primary Care Provider[facility] - Forms: ED Satisfaction Letter Time of Disposition: 16:58 General Adult HPI - General Chief complaint: ED GI Bleed Stated complaint: possible GI bleed/[facility] Source: patient Mode of arrival: EMS Limitations: no limitations Nursing Notes Reviewed: Yes Vital Signs Reviewed: Yes - History of Present Illness HPI Narrative: Patient is an 83 old male who is transferred from the [facility] for Hg 6.3 with a PMH of UGIB treated with cauterization at this facility two weeks previously. He states that he has a headache covering his whole head and is severe in nature that started last night, some chest pain has been going on for 1 month, abdominal pain from vomiting that started last night around 10 PM, nausea, and feeling very tired and weak. He also states that he has dark stool that has been going on for the last several months. He states that his most recent constellation of symptoms of feeling poorly, nausea, vomiting started 2 days ago. PMH includes HTN, CABG in 2007, pacemarker placement in 2007, Colon Ca treated with resection in 2009, and an IVC filter after dx of DVT in left leg, with an active DVT in right leg. He states that his last colonscopy was in November and was "all clear." His last transfusion was approximately six weeks ago at [place], and before that was 2 months ago at the [facility]. He states that all of his troubles with bleeding started when they put him on Eliquis which quit two months ago. - Related Data Home Medications Medication Instructions Recorded Confirmed Allopurinol [Zyloprim] 300 mg PO DAILY 05/29/18 08/15/18 Aspirin [Adult Aspirin Regimen] 81 mg PO DAILY 05/29/18 08/15/18 Atorvastatin [Lipitor] 20 mg PO HS 05/29/18 08/15/18 Cholecalciferol (D-3) [Vitamin D] 1,000 unit PO DAILY 05/29/18 08/15/18 Metformin HCl [Glucophage] 1,000 mg PO BID 05/29/18 08/15/18 Isosorbide MONOnitrate (24 HR) 30 mg PO DAILY 06/23/18 08/15/18 [Imdur] DiphenhydraMINE [Benadryl] 25 mg PO BID PRN 07/17/18 08/15/18 Polyethylene Glycol 3350 [MiraLAX] 17 gm PO DAILY PRN 07/17/18 08/15/18 Previous Rx's Medication Instructions Recorded Saliva Stimulant [Biotene 1 spray PO Q2H PRN #1 bottle 06/26/18 Moisturizing Rinse] Furosemide [Lasix] 40 mg PO BID #60 tablet 07/21/18 Metoprolol [Lopressor] 25 mg PO BID #60 tablet 07/21/18 Allergies Allergy/AdvReac Type Severity Reaction Status Date / Time diazepam [From Valium] Allergy Intermediate Unresponsiv Verified 08/15/18 12:53 e Penicillins Allergy Mild Hives Verified 08/15/18 12:53 adhesive tape Allergy Hives Verified 08/15/18 12:53 apixaban Allergy Anaphylaxis Verified 08/15/18 12:53 budesonide Allergy Anaphylaxis Verified 08/15/18 12:53 secobarbital Allergy Anaphylaxis Verified 08/15/18 12:53 albuterol AdvReac Flushing Verified 08/15/18 12:53 Constitutional: Reports: chills. Denies: fever Cardiovascular: Reports: chest pain (1m in duration), dyspnea on exertion Respiratory: Reports: dyspnea. Denies: cough Gastrointestinal: Reports: abdominal pain, nausea, vomiting, constipation. Denies: diarrhea Neurological: Reports: headache ("severe" his whole head) Endocrine: Reports: fatigue Past Medical History - Past Medical History Medical history: Reports: arthritis, cancer, COPD, coronary artery disease, DVT , diabetes, GERD, glaucoma, hyperlipidemia, hypertension, myocardial infarction , peripheral artery disease, TIA, other Surgical history: Reports: coronary bypass (CABG), pacemaker Psychiatric history: Reports: depression - Social History Smoking Status: Former smoker Smokeless Tobacco Status: No Alcohol use: Reports: rarely Drug use: Reports: none Physical Exam - General Limitations: no limitations General appearance: alert, anxious - Head Head exam: atraumatic, normocephalic - Eye Eye exam: Present: PERRL, other (pale conjunctiva) - ENT ENT exam: normal exam, mucous membranes moist - Chest Chest inspection: Present: normal inspection, symmetric chest wall rise, other ( midline scar) - Respiratory Respiratory exam: Present: normal lung sounds bilaterally. Absent: respiratory distress, wheezes - Cardiovascular Cardiovascular exam: Present: normal rhythm, tachycardia - Abdominal Exam Abdominal exam: Present: soft, tenderness Abdominal tenderness: Present: diffuse - Neurological Exam Neurological exam: Present: alert, oriented X3 - Psychiatric Psychiatric exam: Present: normal affect, agitated - Skin Skin exam: Present: dry, intact, pallor Course Course Narrative: Patient is tachycardic and hypotensive, as well as profoundly anemic with a hemoglobin of 6.3. We will repeat a type and screen at this facility, and transfuse with 2 units of trauma blood. And admit for further management. - Reevaluation(s) Reevaluation #1: Paged R D Intern Time: 14:49 Reevaluation #2: Spoke with Dr. Barth, spring clipper, who wanted 2 18-G IV's, 1L NaCl, and an abdominal/pelvic CT. If CT is negative for active bleed, he states he can go to step-down unit 2N. Hospitalist agreed to admit patient to 2N without CT results , and will plan for transfer if results show active extravasation. Time: 15:16 Vital Signs O2 Sat by Pulse Oximetry 100 08/15/18 12:59 Temperature 98.1 F 08/15/18 15:44 Pulse Rate 118 08/15/18 17:08 Respiratory Rate 20 08/15/18 17:08 Blood Pressure 112/71 08/15/18 17:08 O2 Sat by Pulse Oximetry 97 08/15/18 17:08 Oxygen Delivery Oxygen Delivery Room Air Medical Decision Making - MDM Narrative Medical decision making narrative: Pts Hg is low, and while he is slightly tachycardic and hypotensive, he is fluid response and received two units of blood while in the department. He does not complain of any active bleeding per rectum or in his emesis. He will be admitted to step-down unit with surgical consult, CT with IV contrast to check for active extravasation, and further management. Spoke with admitting hospitalist Dr. Schmidt who spoke with 2N covering hospitalist that agreed to assume care of the patient. Pt's hemodynamic status improved while he was in the department, and all of his needs were addressed. - Medical Records Medical records reviewed: Yes I reviewed the patient's medical records. - Lab Data Lab results reviewed: Yes I reviewed the patient's lab results. Result diagrams: 08/15/18 12:54 08/15/18 12:54 Lab Results 08/15/18 08/15/18 08/15/18 Range/Units 12:54 12:54 12:54 WBC 6.6 (4.3-11.1) K/mcL RBC 2.58 L (4.19-5.50) M/mcL Hgb 5.6 L* (12.9-16.9) g/dL Hct 19.9 L (37.5-50.1) % MCV 77.1 L (83.0-100.0) fL MCH 21.7 L (28.0-33.3) pg MCHC 28.1 L (31.6-35.5) g/dL RDW 19.5 H (11.5-14.5) % Plt Count 208 (140-400) K/mcL MPV 10.6 (9.4-12.4) fL Immature Gran % 0.3 (0-4) % Seg Neutrophils % 80.3 % Lymphocytes % 11.0 % Monocytes % 8.2 % Eosinophils % 0.0 % Basophils % 0.2 % Neutrophils # 5.3 (1.6-8.9) K/mcL Lymphocytes # 0.7 (0.6-4.6) K/mcL Monocytes # 0.5 (0.0-1.3) K/mcL Eosinophils # 0.0 (0.0-0.6) K/mcL Basophils # 0.0 (0.0-0.2) K/mcL Platelet Estimate Normal (Normal) Polychromasia 1+ A (Not Present) Hypochromasia Present A (Not Present) Anisocytosis 1+ A (Not Present) PT 13.3 H (9.4-12.1) Seconds INR 1.2 APTT 28.2 (26.0-36.0) Seconds Sodium 136 (136-145) mEq/L Potassium 4.6 (3.5-5.1) mEq/L Chloride 95 L (98-107) mEq/L Carbon Dioxide 21 L (23-29) mEq/L BUN 40 H (8-23) mg/dL Creatinine 1.39 H (0.70-1.30) mg/dL Est GFR ( Amer) 59 L (> 60) Est GFR (Non-Af Amer) 49 L (> 60) BUN/Creatinine Ratio 29 H (6-26) Glucose 235 H (70-105) mg/dL Calculated Osmolality 299 (280-300) Lactic Acid (0.5-2.2) mmol/L Calcium 9.5 (8.6-10.3) mg/dL Blood Type Antibody Screen Crossmatch 08/15/18 08/15/18 08/15/18 Range/Units 13:03 13:03 13:03 WBC (4.3-11.1) K/mcL RBC (4.19-5.50) M/mcL Hgb (12.9-16.9) g/dL Hct (37.5-50.1) % MCV (83.0-100.0) fL MCH (28.0-33.3) pg MCHC (31.6-35.5) g/dL RDW (11.5-14.5) % Plt Count (140-400) K/mcL MPV (9.4-12.4) fL Immature Gran % (0-4) % Seg Neutrophils % % Lymphocytes % % Monocytes % % Eosinophils % % Basophils % % Neutrophils # (1.6-8.9) K/mcL Lymphocytes # (0.6-4.6) K/mcL Monocytes # (0.0-1.3) K/mcL Eosinophils # (0.0-0.6) K/mcL Basophils # (0.0-0.2) K/mcL Platelet Estimate (Normal) Polychromasia (Not Present) Hypochromasia (Not Present) Anisocytosis (Not Present) PT (9.4-12.1) Seconds INR APTT (26.0-36.0) Seconds Sodium (136-145) mEq/L Potassium (3.5-5.1) mEq/L Chloride (98-107) mEq/L Carbon Dioxide (23-29) mEq/L BUN (8-23) mg/dL Creatinine (0.70-1.30) mg/dL Est GFR ( Amer) (> 60) Est GFR (Non-Af Amer) (> 60) BUN/Creatinine Ratio (6-26) Glucose (70-105) mg/dL Calculated Osmolality (280-300) Lactic Acid > 10.0 H* (0.5-2.2) mmol/L Calcium (8.6-10.3) mg/dL Blood Type AB POSITIVE Antibody Screen NEGATIVE Crossmatch See Detail See Detail 08/15/18 Range/Units 17:05 WBC (4.3-11.1) K/mcL RBC (4.19-5.50) M/mcL Hgb (12.9-16.9) g/dL Hct (37.5-50.1) % MCV (83.0-100.0) fL MCH (28.0-33.3) pg MCHC (31.6-35.5) g/dL RDW (11.5-14.5) % Plt Count (140-400) K/mcL MPV (9.4-12.4) fL Immature Gran % (0-4) % Seg Neutrophils % % Lymphocytes % % Monocytes % % Eosinophils % % Basophils % % Neutrophils # (1.6-8.9) K/mcL Lymphocytes # (0.6-4.6) K/mcL Monocytes # (0.0-1.3) K/mcL Eosinophils # (0.0-0.6) K/mcL Basophils # (0.0-0.2) K/mcL Platelet Estimate (Normal) Polychromasia (Not Present) Hypochromasia (Not Present) Anisocytosis (Not Present) PT (9.4-12.1) Seconds INR APTT (26.0-36.0) Seconds Sodium (136-145) mEq/L Potassium (3.5-5.1) mEq/L Chloride (98-107) mEq/L Carbon Dioxide (23-29) mEq/L BUN (8-23) mg/dL Creatinine (0.70-1.30) mg/dL Est GFR ( Amer) (> 60) Est GFR (Non-Af Amer) (> 60) BUN/Creatinine Ratio (6-26) Glucose (70-105) mg/dL Calculated Osmolality (280-300) Lactic Acid 8.8 H* (0.5-2.2) mmol/L Calcium (8.6-10.3) mg/dL Blood Type Antibody Screen Crossmatch - EKG Data EKG #1 EKG attestation: Yes I reviewed and interpreted this EKG. EKG results narrative: HR 104, rhythm sinus, axis -95. NC 155, QRS 142. Q waves present II, III, aVF. No evidence of ST elevation or depression.
[2018-08-15 13:27] LABS: INR 1.2; Prothrombin Time 13.3 Seconds (9.4-12.1)
[2018-08-15 13:29] LABS: Activated Partial Thrombo Time 28.2 Seconds (26.0-36.0)
[2018-08-15 13:33] LABS: Hemoglobin 5.6 g/dL (12.9-16.9)
[2018-08-15 13:37] LABS: Calcium 9.5 mg/dL (8.6-10.3); Potassium 4.6 mEq/L (3.5-5.1)
[2018-08-15 13:45] LABS: Anisocytosis 1+ (Not Present); Hypochromasia Present (Not Present); Platelet Estimate Normal (Normal); Polychromasia 1+ (Not Present)
[2018-08-15] MEDS ORDERED: Isovue-370 500 ML INFUS..BTL IV ONE ×2 (15:00→18:45)
[2018-08-15] MEDS ORDERED: 0.9 % Sodium Chloride 1,000 ML IVC ONE (15:03)
[2018-08-15] MEDS ORDERED: Metoclopramide 10 MG/2 ML VIAL IVP ONE (15:23)
--- NOTE | 2018-08-15 16:44 | General Surgery Consult Note ---
Date of Encounter: 08/15/18 Time of Encounter: 16:00 Assessment and Plan (1) Anemia Current Visit: No Status: Acute NPO IV fluids PRBC per medicine service Iron transfusion per medicine service Monitor Hgb/Hct PPI therapy Supportive therapy Patient will need a capsule endoscopy as recommended per gastroenterology- outpatient procedure Surgery will continue to follow along and assess progress Qualifiers: Anemia type: iron deficiency Iron deficiency anemia type: inadequate dietary iron intake Qualified Code(s): D50.8 - Other iron deficiency anemias (2) Arteriovenous malformation of duodenum Current Visit: Yes Status: Acute NPO IV fluids PRBC per medicine service Iron transfusion per medicine service Monitor Hgb/Hct PPI therapy Supportive therapy Patient will need a capsule endoscopy as recommended per gastroenterology- outpatient procedure Surgery will continue to follow along and assess progress History of Present Illness Consult date: 08/15/18 Reason for consult: other (anemia; hx AVM of duodenum) Requesting physician: Jennifer Joseph History of present illness: 83 year old male with a past medical history significant for COPD, Pacemaker, CABG, Pulmonary insufficiency, Bilateral lower extremity DVT, anemia, Colon cancer, AVM of the duodenum. [facility] of [facility] all night. He states that he started vomiting at 10pm last evening and this continued all night. Denies any hematemesis of coffee ground emesis. He admits to constipation and states that his last bowel movement was on Saturday (he had 2 hard bowel movements). Denies any melena or hematochezia. Admits to upper abdominal discomfort which started after multiple episodes of wreching. He admits to feeling light-headed, dizzy and fatigued after vomiting all night. Admits to having a headache. Denies any difficulty with urination other than having difficulty with initiation of stream which is not new. Denies any syncope. The patient did have and EGD and colonoscopy in June of [address] Murray. EGD showed AVMs of the duodenum with push enteroscopy- these were cauterized but were not actively bleeding at the time of evaluation. His colonoscopy was clean. The patient was last seen in the gastroenterology office on 08/11/18 and recommendation was made for capsule endoscopy. Awaiting scheduling of testing. Past Med Surg Social Fam HX - Past Medical History Source: patient, old records reviewed Medical history: arthritis, cancer (Colon), COPD, coronary artery disease, DVT, diabetes, GERD, glaucoma, hyperlipidemia, hypertension, myocardial infarction, peripheral artery disease, TIA, other Additional medical history: MRSA. Neoplasm of ascending colon Psychiatric history: depression - Past Surgical History Surgical History: colectomy (7 inches removed in 2009 (no chemotherapy)), coronary bypass (CABG) (2007), IVC Filter, orthopedic, other (Left ankle), pacemaker Additional surgical history: Braed[place] Filter, fem pop right leg, broken left ankle, bone spur and cyst left foot, neck and back surgeries - Social History Smoking Status: Former smoker Smokeless Tobacco Status: No Alcohol use: rarely Drug use: none Current living situation: Home - Independent Activity Level: Independent ambulation - Family History Father Adopted: No Family Member Ethnicity: Non- Living Status: Hx Family Cardiac Disorders: Yes Hx Family Respiratory Disorders: No Hx Family Cancer: No Hx Family GI Disorders: No Hx Family Endocrine Disorder: No Hx Family Neuromuscular Disorders: No Hx Family Neurologic Disorders: No Hx Family HEENT Disorders: No Hx Family Autoimmune Disorders: No Mother Family Member Ethnicity: Non- Living Status: Hx Family Cardiac Disorders: Yes Hx Family Cancer: Yes Medications and Allergies Allopurinol [Zyloprim] 300 mg PO DAILY 05/29/18 [History] Aspirin [Adult Aspirin Regimen] 81 mg PO DAILY 05/29/18 [History] Atorvastatin [Lipitor] 20 mg PO HS 05/29/18 [History] Cholecalciferol (D-3) [Vitamin D] 1,000 unit PO DAILY 05/29/18 [History] Metformin HCl [Glucophage] 1,000 mg PO BID 05/29/18 [History] Isosorbide MONOnitrate (24 HR) [Imdur] 30 mg PO DAILY 06/23/18 [History] Saliva Stimulant [Biotene Moisturizing Rinse] 1 spray PO Q2H PRN #1 bottle 06/26 [Rx] DiphenhydraMINE [Benadryl] 25 mg PO BID PRN 07/17/18 [History] Polyethylene Glycol 3350 [MiraLAX] 17 gm PO DAILY PRN 07/17/18 [History] Furosemide [Lasix] 40 mg PO BID #60 tablet 07/21/18 [Rx] Metoprolol [Lopressor] 25 mg PO BID #60 tablet 07/21/18 [Rx] 3 Allergy/AdvReac Type Severity Reaction Status Date / Time diazepam [From Valium] Allergy Intermediate Unresponsiv Verified 08/15/18 12:53 e Penicillins Allergy Mild Hives Verified 08/15/18 12:53 adhesive tape Allergy Hives Verified 08/15/18 12:53 apixaban Allergy Anaphylaxis Verified 08/15/18 12:53 budesonide Allergy Anaphylaxis Verified 08/15/18 12:53 secobarbital Allergy Anaphylaxis Verified 08/15/18 12:53 albuterol AdvReac Flushing Verified 08/15/18 12:53 Review of Systems All systems PM: reviewed and no additional remarkable complaints except as stated (in the HPI) All systems PM: The remainder of the systems were reviewed and are negative General Surgery Exam Initial Vital Signs Pulse Ox 100 08/15/18 12:59 - General physical appearance well developed, well nourished, other (ill appearing) - Eyes PERRL, pale - ENT normal mucosa, atraumatic, normocephalic - Neck trachea midline - Respiratory normal respiratory effort, clear to auscultation - Cardiovascular Cardiovascular exam: Present: tachycardia - Abdomen Abdomen general surgery: Present: bowel sounds present, soft, tender Abdominal Tenderness: Present: epigastic - Integumentary Integumentary general surgery: Present: warm and dry - Neurologic Present: CN 2-12 grossly intact - Psychiatric Psychiatric general surgery: Present: appropriate, oriented to person, oriented to place, oriented to time, speech is normal, memory intact Exam Initial Vital Signs Pulse Ox 100 08/15/18 12:59 Results - Labs 08/15/18 12:54 08/15/18 12:54 Abnormal lab results RBC 2.58 M/mcL (4.19-5.50) L 08/15/18 12:54 Hgb 5.6 g/dL (12.9-16.9) L* 08/15/18 12:54 Hct 19.9 % (37.5-50.1) L 08/15/18 12:54 MCV 77.1 fL (83.0-100.0) L 08/15/18 12:54 MCH 21.7 pg (28.0-33.3) L 08/15/18 12:54 MCHC 28.1 g/dL (31.6-35.5) L 08/15/18 12:54 RDW 19.5 % (11.5-14.5) H 08/15/18 12:54 Polychromasia 1+ (Not Present) A 08/15/18 12:54 Hypochromasia Present (Not Present) A 08/15/18 12:54 Anisocytosis 1+ (Not Present) A 08/15/18 12:54 PT 13.3 Seconds (9.4-12.1) H 08/15/18 12:54 Chloride 95 mEq/L (98-107) L 08/15/18 12:54 Carbon Dioxide 21 mEq/L (23-29) L 08/15/18 12:54 BUN 40 mg/dL (8-23) H 08/15/18 12:54 Creatinine 1.39 mg/dL (0.70-1.30) H 08/15/18 12:54 Est GFR ( Amer) 59 (> 60) L 08/15/18 12:54 Est GFR (Non-Af Amer) 49 (> 60) L 08/15/18 12:54 BUN/Creatinine Ratio 29 (6-26) H 08/15/18 12:54 Glucose 235 mg/dL (70-105) H 08/15/18 12:54 Lactic Acid > 10.0 mmol/L (0.5-2.2) H* 08/15/18 13:03 Diabetes panel 08/15/18 Range/Units 12:54 Sodium 136 (136-145) mEq/L Potassium 4.6 (3.5-5.1) mEq/L Chloride 95 L (98-107) mEq/L Carbon Dioxide 21 L (23-29) mEq/L BUN 40 H (8-23) mg/dL Creatinine 1.39 H (0.70-1.30) mg/dL Glucose 235 H (70-105) mg/dL Calcium 9.5 (8.6-10.3) mg/dL Calcium panel 08/15/18 Range/Units 12:54 Calcium 9.5 (8.6-10.3) mg/dL Pituitary panel 08/15/18 Range/Units 12:54 Sodium 136 (136-145) mEq/L Potassium 4.6 (3.5-5.1) mEq/L Chloride 95 L (98-107) mEq/L Carbon Dioxide 21 L (23-29) mEq/L BUN 40 H (8-23) mg/dL Creatinine 1.39 H (0.70-1.30) mg/dL Glucose 235 H (70-105) mg/dL Calcium 9.5 (8.6-10.3) mg/dL Adrenal panel 08/15/18 Range/Units 12:54 Sodium 136 (136-145) mEq/L Potassium 4.6 (3.5-5.1) mEq/L Chloride 95 L (98-107) mEq/L Carbon Dioxide 21 L (23-29) mEq/L BUN 40 H (8-23) mg/dL Creatinine 1.39 H (0.70-1.30) mg/dL Glucose 235 H (70-105) mg/dL Calcium 9.5 (8.6-10.3) mg/dL All other labs normal. Consult Discharge Plan - Plan - Attending Attestation For this encounter, I have reviewed the [employer] or PA documentation, treatment plan, and medical decision making; and I have had face to face time with this patient.
--- NOTE | 2018-08-15 17:55 | Electrocardiograph Report ---
[facility] Test Date: 2018-08-15 Pat Name: Fernandez Llanes Department: EXAM2 Room: Gender: M Journalism Instructor: : 1935 Requested By: Evgeny Gonzales Order Number: [id number] Reading MD: Oscar Day Measurements Intervals [place] Rate: 104 P: -10 MA: 155 QRS: -95 QRSD: 142 T: 66 QT: 384 QTc: 506 Interpretive Statements Sinus tachycardia Right bundle branch block Consider inferior infarct Anterior infarct, old Electronically Signed On 08-15-2018 17:53:52 EDT by Oscar Day
[2018-08-15] MEDS ORDERED: Furosemide 20 MG/2 ML VIAL IVP ONE (18:55)
--- NOTE | 2018-08-15 19:01 | Internal Med History&Physical ---
Date of Encounter: 08/15/18 Time of Encounter: 18:15 Internal Medicine - H&P: HPI Admitted From: Emergency Dept History of present illness: Mr. Llanes is a 83 year old male with past medical history of coronary artery disease status post coronary artery bypass graft, history of iron deficiency anemia. Patient stated he had complete workup for GI bleeding done twice, patient stated last EGD and colonoscopy was done about the 3 weeks ago. No evidence of GI bleeding, differential tester recommended GI endoscopy. Patient denies any blood in stool or black stool. Patient stated over last 4 months she has progressive fatigue tiredness dyspnea on mild exertion. Patient stated that he had 4 unit blood transfusion over last 3 months. Patient stated his symptom has been getting worse for last 24 hour. Patient is complaining of diffuse chest discomfort more left sided chest pain radiating to his back associated with dizziness shortness of breath and palpitation. Patient stated over last 24 hour had recurrent episodes of nausea and vomiting nonbilious nonbloody vomitus. Patient stated he had normal bowel movement yesterday brown stool Past Med Surg Social Fam HX - Past Medical History Medical history: arthritis, cancer (Colon cancer status post partial colectomy) , COPD, coronary artery disease (Status post coronary artery bypass graft), DVT , diabetes, GERD, glaucoma, hyperlipidemia, hypertension, myocardial infarction , peripheral artery disease, TIA, other Additional medical history: MRSA. Neoplasm of ascending colon Psychiatric history: depression - Past Surgical History Surgical History: coronary bypass (CABG), pacemaker Additional surgical history: [place] Filter, fem pop right leg, broken left ankle, bone spur and cyst left foot, neck and back surgeries - Social History Smoking Status: Former smoker Smokeless Tobacco Status: No Alcohol use: rarely Drug use: none - Family History Father Adopted: No Family Member Ethnicity: Non- Living Status: Hx Family Cardiac Disorders: Yes Hx Family Respiratory Disorders: No Hx Family Cancer: No Hx Family GI Disorders: No Hx Family Endocrine Disorder: No Hx Family Neuromuscular Disorders: No Hx Family Neurologic Disorders: No Hx Family HEENT Disorders: No Hx Family Autoimmune Disorders: No Mother Family Member Ethnicity: Non- Living Status: Hx Family Cardiac Disorders: Yes Hx Family Cancer: Yes - Additional Family History Additional family history: Noncontributory Internal Medicine - H&P: Meds RX: Allopurinol [Zyloprim] 300 mg PO DAILY 05/29/18 [History] RX: Aspirin [Adult Aspirin Regimen] 81 mg PO DAILY 05/29/18 [History] RX: Atorvastatin [Lipitor] 20 mg PO HS 05/29/18 [History] RX: Cholecalciferol (D-3) [Vitamin D] 1,000 unit PO DAILY 05/29/18 [History] RX: Metformin HCl [Glucophage] 1,000 mg PO BID 05/29/18 [History] RX: Isosorbide MONOnitrate (24 HR) [Imdur] 30 mg PO DAILY 06/23/18 [History] RX: Saliva Stimulant [Biotene Moisturizing Rinse] 1 spray PO Q2H PRN #1 bottle 06/26/18 [Rx] RX: DiphenhydraMINE [Benadryl] 25 mg PO BID PRN 07/17/18 [History] RX: Polyethylene Glycol 3350 [MiraLAX] 17 gm PO DAILY PRN 07/17/18 [History] Furosemide [Lasix] 40 mg PO BID #60 tablet 07/21/18 [Rx] RX: Metoprolol [Lopressor] 25 mg PO BID #60 tablet 07/21/18 [Rx] 3 Allergy/AdvReac Type Severity Reaction Status Date / Time diazepam [From Valium] Allergy Intermediate Unresponsiv Verified 08/15/18 12:53 e Penicillins Allergy Mild Hives Verified 08/15/18 12:53 adhesive tape Allergy Hives Verified 08/15/18 12:53 apixaban Allergy Anaphylaxis Verified 08/15/18 12:53 budesonide Allergy Anaphylaxis Verified 08/15/18 12:53 secobarbital Allergy Anaphylaxis Verified 08/15/18 12:53 albuterol AdvReac Flushing Verified 08/15/18 12:53 All Systems PM: A 10-system review of systems was performed and is negative for pertinent findings except as documented above in the HPI. - Constitutional Constitutional: no fever(s), no night sweats - Allergic/Immunologic Additional comments: 10 system review otherwise negative except as above - Constitutional Vitals: Temp Pulse Resp BP Pulse Ox 98.1 F 106 20 103/67 96 08/15/18 15:44 08/15/18 18:30 08/15/18 18:30 08/15/18 18:30 08/15/18 18:30 General appearance: Present: A&O X 3 Exam: as above - Head Head exam: Present: atraumatic, normocephalic - Eye Eye exam: Present: EOMI, PERRL, conjuntiva pink, sclera anicteric Pupils: Present: PERRL - Neck Neck exam general surgery: Present: supple, trachea midline. Absent: lymphadenopathy - Respiratory Respiratory exam: Present: decreased breath sounds (Decreased breathing sound bilateral breath rhonchi), rhonchi - Cardiovascular Cardiovascular exam: Present: +S1, +S2, systolic murmur, tachycardia. Absent: diastolic murmur, gallop, rubs - GI/Abdominal GI/Abdominal exam: Present: normal bowel sounds, soft, tenderness (Diffuse abdominal tenderness more at epigastric , right lower quadrants right upper quadrant area), no peritoneal signs. Absent: distended - Extremities Exam Extremities exam: Present: pedal edema (+2-3lower extremites edema), warm, radial pulses palpable and symmetrical. Absent: calf tenderness, cyanotic Internal Med - H&P Results - Labs CBC & Chem 7: 08/16/18 02:47 08/16/18 02:47 Labs: Short CBC 08/15/18 Range/Units 12:54 WBC 6.6 (4.3-11.1) K/mcL Hgb 5.6 L* (12.9-16.9) g/dL Hct 19.9 L (37.5-50.1) % Plt Count 208 (140-400) K/mcL Neutrophils # 5.3 (1.6-8.9) K/mcL BMP 08/15/18 12:54 Sodium 136 Potassium 4.6 Chloride 95 L Carbon Dioxide 21 L BUN 40 H Creatinine 1.39 H Glucose 235 H Calcium 9.5 - Impressions ITS Impressions Abdomen/Pelvis CT 08/15/18 15:00 IMPRESSION: 1. No acute abnormality in the abdomen/pelvis. No evidence of metastatic disease. 2. Stable mild induration/edema within the upper abdominal mesentery. Stable small perihepatic free fluid. Chronic small bilateral pleural effusions, which are mildly improved following thoracentesis on the right. Findings are likely related to third spacing/generalized edema. 3. Status post right hemicolectomy and Daniela fundoplication. No evidence of complication. 4. Evidence of chronic bladder outlet obstruction from an enlarged prostate gland. D/ / 08/15/2018 17:21:18 Ronny Castellano MD / lgray Interpreting Provider: Ronny Castellano MD - Assessment and plan (1) Anemia Current Visit: No Status: Acute Qualifiers: Anemia type: iron deficiency Iron deficiency anemia type: inadequate dietary iron intake Qualified Code(s): D50.8 - Other iron deficiency anemias (2) CHF (congestive heart failure) Current Visit: No Status: Acute Qualifiers: Heart failure type: combined systolic and diastolic Heart failure chronicity: acute on chronic Qualified Code(s): I50.43 - Acute on chronic combined systolic (congestive) and diastolic (congestive) heart failure (3) Chest pain Current Visit: No Status: Acute Qualifiers: Chest pain type: unspecified Qualified Code(s): R07.9 - Chest pain, unspecified (4) NSTEMI (non-ST elevated myocardial infarction) Current Visit: No Status: Acute (5) Iron deficiency anemia due to dietary causes Current Visit: No Status: Chronic - Time Spent With Patient Patient has history of coronary artery disease with his current chest discomfort secondary to chest wall pain cannot rule out acute ND, demand ischemia, EKG ST depression in inferior leads, discussed with cardiology team, patient is poor candidate for any intervention with his anemia, patient is not candidate for aspirin and heparin or Nitro. We will transfuse 1 unit of blood keep his hemoglobin more than 8. Patient has anemia possible secondary to sever iron malabsorption. 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 With his GERD-like symptom, We will start patient on Protonix drip. add Lasix between blood transfusion, monitor fluid status. recheck lactic acid , lactic acidosis , possible secondary to sever anemia , no fever , no evidenc of infectious process
[2018-08-15] MEDS: Pantoprazole 40 MG in 0.9 % Sodium Chloride Mini Bag 100 ML IVC SCH (19:15)
[2018-08-15] MEDS ORDERED: Naloxone 0.4 MG/ML INJ IVP PRN (19:20)
[2018-08-15 19:24] LABS: Albumin 3.7 g/dL (3.5-5.7); Phosphorous 5.4 mg/dL (2.7-4.5)
[2018-08-15 19:49] LABS: Hemoglobin 7.9 g/dL (12.9-16.9)
[2018-08-15] MEDS: Iron Sucrose Complex 200 MG in 0.9 % Sodium Chloride 100 ML IVPB SCH (19:55)
[2018-08-16] MEDS: Pantoprazole 40 MG in 0.9 % Sodium Chloride Mini Bag 100 ML IVC SCH ×5 (01:30→22:20)
[2018-08-16 03:04] LABS: Basophils % 0.2 %; Eosinophils % 0.2 %; Hematocrit 29.3 % (37.5-50.1); Hemoglobin 8.8 g/dL (12.9-16.9); Immature Granulocytes % 0.5 % (0-4); Lymphocytes % 9.9 %; Mean Corpuscular Hemoglobin 23.4 pg (28.0-33.3); Mean Corpuscular Volume 77.9 fL (83.0-100.0); Mean Platelet Volume 10.1 fL (9.4-12.4); Monocytes % 10.3 %; Neutrophils # 7.6 K/mcL (1.6-8.9); Nucleated Red Blood Cells 0.3 /100 WBC (0); Platelet Count 185 K/mcL (140-400); Red Blood Count 3.76 M/mcL (4.19-5.50); Red Cell Distribution Width 18.6 % (11.5-14.5); Segmented Neutrophils % 78.9 %
[2018-08-16 03:17] LABS: Calcium 9.3 mg/dL (8.6-10.3); Phosphorous 5.5 mg/dL (2.7-4.5); Potassium 5.1 mEq/L (3.5-5.1)
--- NOTE | 2018-08-16 08:21 | General Surgery Progress Note ---
Date of Encounter: 08/16/18 Time of Encounter: 08:20 - Assessment and Plan (1) Anemia Current Visit: No Status: Acute I explained to the patient that from a surgical standpoint I agree that a follow -up with gastroenterology would be recommended for a capsule endoscopy. With regards to his current nausea and vomiting symptoms I will write for Zofran to be given 4 mg IV every 6 hours as needed. I reviewed the CT scan images and report do not see any signs of bowel obstruction. He has positive bowel sounds and examination and is tenderness in the upper abdomen may more be related to the stress of vomiting as opposed to true abdominal pain. I am uncertain if he would benefit from a more readily scheduled medications at his Reglan. It is possible that his nausea vomiting may be a consequence of his diabetes i.e. gastroparesis. Recommend starting with Zofran and if necessary trying Reglan if needed. At this time would not recommend any EGD and colonoscopy, however, an EGD may be appropriate more for evaluation of the new onset of nausea vomiting as opposed to the history of anemia. Qualifiers: Anemia type: iron deficiency Iron deficiency anemia type: inadequate dietary iron intake Qualified Code(s): D50.8 - Other iron deficiency anemias Subjective Patient reports: other (She states that he had nausea and vomiting this morning. States that he has been having 2 days of nausea vomiting symptoms. No hematemesis and no blood in the stool. Flatus.) Objective Vital Signs - Last 8 Hours Temp Pulse Resp BP Pulse Ox 08/16/18 07:36 97.2 F L 104 18 120/67 97 08/16/18 02:49 98.0 F 104 16 106/70 94 Intake and Output 08/15/18 08/16/18 08/16/18 23:59 07:59 15:59 Intake Total 100 / 1100 550 / 550 Output Total 275 / 275 250 / 250 200 / 200 Balance -175 / 825 300 / 300 -200 / -200 Intake: IV Fluids 100 / 100 200 / 200 Protonix 40 MG In 0.9 % Sodium 200 / 200 Chloride (Mini-Bag +) 100 ML @ 20 mls/hr IVC .Q5H [facility] Rx#: [id number] Venofer 200 MG In 0.9 % Sodium 100 / 100 Chloride 100 ML @ 200 mls/hr IVPB QPM [facility] Rx#:[id number] Blood Product 0 / 0 350 / 350 Rbcs Leuko Poor As-1 Unit 0 / 0 350 / 350 [id number] Output: Urine 275 / 275 250 / 250 200 / 200 Other: Weight 86.2 kg Blood Glucose* 207 222 - General physical appearance no distress - Abdomen Abdomen: Present: soft, tender (Tenderness noted in the upper abdomen.) - Labs 08/16/18 02:47 08/16/18 02:47 Diabetes panel 08/16/18 Range/Units 02:47 Sodium 135 L (136-145) mEq/L Potassium 5.1 (3.5-5.1) mEq/L Chloride 96 L (98-107) mEq/L Carbon Dioxide 24 (23-29) mEq/L BUN 47 H (8-23) mg/dL Creatinine 1.57 H (0.70-1.30) mg/dL Glucose 200 H (70-105) mg/dL Calcium 9.3 (8.6-10.3) mg/dL Calcium panel 08/16/18 Range/Units 02:47 Calcium 9.3 (8.6-10.3) mg/dL Phosphorus 5.5 H (2.7-4.5) mg/dL Pituitary panel 08/16/18 Range/Units 02:47 Sodium 135 L (136-145) mEq/L Potassium 5.1 (3.5-5.1) mEq/L Chloride 96 L (98-107) mEq/L Carbon Dioxide 24 (23-29) mEq/L BUN 47 H (8-23) mg/dL Creatinine 1.57 H (0.70-1.30) mg/dL Glucose 200 H (70-105) mg/dL Calcium 9.3 (8.6-10.3) mg/dL Adrenal panel 08/16/18 Range/Units 02:47 Sodium 135 L (136-145) mEq/L Potassium 5.1 (3.5-5.1) mEq/L Chloride 96 L (98-107) mEq/L Carbon Dioxide 24 (23-29) mEq/L BUN 47 H (8-23) mg/dL Creatinine 1.57 H (0.70-1.30) mg/dL Glucose 200 H (70-105) mg/dL Calcium 9.3 (8.6-10.3) mg/dL Consult Discharge Plan - Plan [facility]errals: [facility] [Primary Care Provider] -
[2018-08-16] MEDS: Ondansetron 4 MG/2 ML VIAL IVP PRN ×2 (08:36→17:57)
--- NOTE | 2018-08-16 08:48 | Internal Med Progress Note ---
Hospitalist Progress Note - Encounter Date of Encounter: 08/16/18 Time of Encounter: 08:56 - Subjective Interval History: Patient is complaining of chest wall pain. Shortness of breath is better, patient is complaining of nausea but no vomiting, patient complain of constipation since Saturday. - Exam Vitals: Temp Pulse Resp BP Pulse Ox 97.2 F L 104 18 120/67 97 08/16/18 07:36 08/16/18 07:36 08/16/18 07:36 08/16/18 07:36 08/16/18 07:36 Exam: Bilateral lower extremity edema +2 better than yesterday. Superficial stage II ulcer of the right lower extremities chain of tibia was scarring - Assessment and Plan (1) Anemia Current Visit: No Status: Acute (2) CHF (congestive heart failure) Current Visit: No Status: Acute (3) Chest pain Current Visit: No Status: Acute (4) NSTEMI (non-ST elevated myocardial infarction) Current Visit: No Status: Acute (5) Iron deficiency anemia due to dietary causes Current Visit: No Status: Chronic (6) Diabetes mellitus Current Visit: Yes Status: Acute DVT Prophylaxis: SCD - Summary of Assessment and Plan Summary of Assessment and Plan: elevation of troponin possible demand ischemia, add small dose of beta ana luisa , cannot add Nitro or aspirin in view of borderline blood pressure, tachycardia and possible GI bleeding. Cardiology on board , I explained to the patient risk and benefit. Add laxative, will add iron as well as Aranesp to help with his anemia, fairly high chance his anemia could be possible secondary to iron deficiency anemia as well as anemia of chronic kidney disease. Need hematology as an outpatient, possible gastroparesis need workup as an outpatient, add Reglan for now. Add aerosol treatment. Check chest x-ray, UA. Check bladder scan to rule out any urinary retention in view of his suprapubic tenderness, Add Insulin sliding scale - Time Spent with Patient Total time spent is greater than 50% in coordination of care (as documented) at patient's floor/unit and/or counseling patient: Greater than 35 minutes Internal Medicine: Result - Labs CBC & Chem 7: 08/16/18 02:47 08/16/18 02:47 Labs: Short CBC 08/15/18 08/16/18 Range/Units 19:32 02:47 WBC 9.7 (4.3-11.1) K/mcL Hgb 7.9 L D 8.8 L (12.9-16.9) g/dL Hct 27.0 L 29.3 L (37.5-50.1) % Plt Count 185 (140-400) K/mcL Neutrophils # 7.6 (1.6-8.9) K/mcL BMP 08/16/18 02:47 Sodium 135 L Potassium 5.1 Chloride 96 L Carbon Dioxide 24 BUN 47 H Creatinine 1.57 H Glucose 200 H Calcium 9.3 Cardiac Enzymes 08/15/18 08/16/18 Range/Units 19:32 02:47 Troponin I 1.72 H* 2.83 H* (< 0.04) ng/mL - ABG Interpretation ABG results: PT/INR, D-dimer PT 13.3 Seconds (9.4-12.1) H 08/15/18 12:54 Consult Discharge Plan - Plan Referrals: [facility] [Primary Care Provider] - Exam - Vital Signs Vital signs: Initial Vital Signs Pulse Ox 100 08/15/18 12:59 Vital Signs - Last 8 Hours Temp Pulse Resp BP Pulse Ox 08/16/18 07:36 97.2 F L 104 18 120/67 97 08/16/18 02:49 98.0 F 104 16 106/70 94 Intake and Output 08/15/18 08/16/18 08/16/18 23:59 07:59 15:59 Intake Total 100 / 1100 550 / 550 Output Total 275 / 275 250 / 250 200 / 200 Balance -175 / 825 300 / 300 -200 / -200 Intake: IV Fluids 100 / 100 200 / 200 Protonix 40 MG In 0.9 % Sodium 200 / 200 Chloride (Mini-Bag +) 100 ML @ 20 mls/hr IVC .Q5H [facility] Rx#: [id number] Venofer 200 MG In 0.9 % Sodium 100 / 100 Chloride 100 ML @ 200 mls/hr IVPB QPM [facility] Rx#:[id number] Blood Product 0 / 0 350 / 350 Rbcs Leuko Poor As-1 Unit 0 / 0 350 / 350 [id number] Output: Urine 275 / 275 250 / 250 200 / 200 Other: Weight 86.2 kg Blood Glucose* 207 222 - General Appearance General appearance: well-developed, appears started age, chronically ill, fatigue EENT: mucous membranes moist Neck: no JVD, no carotid bruit Respiratory: wheezing (Coarse wheezing. Crackles more at the right lung base), rales Cardiology: holosystolic murmur, rapid rhythm, normal S1, normal S2 Gastrointestinal: normoactive bowel sounds Additional Comments: Mild diffuse abdominal tenderness Integumentary: no rash Neurologic: no focal deficit Musculoskeletal: no cyanosis, no clubbing Psychiatric: mood/affect appropriate (1) Anemia Qualifiers: Anemia type: iron deficiency Iron deficiency anemia type: inadequate dietary iron intake Qualified Code(s): D50.8 - Other iron deficiency anemias (2) CHF (congestive heart failure) Qualifiers: Heart failure type: combined systolic and diastolic Heart failure chronicity : acute on chronic Qualified Code(s): I50.43 - Acute on chronic combined systolic (congestive) and diastolic (congestive) heart failure (3) Chest pain Qualifiers: Chest pain type: unspecified Qualified Code(s): R07.9 - Chest pain, unspecified (6) Diabetes mellitus Qualifiers: Diabetes mellitus type: type 2 Diabetes mellitus fpc insulin use: without intermediate manager use Diabetes mellitus complication status: with circulatory complication Diabetes mellitus complication detail: with other circulatory complications Qualified Code(s): E11.59 - Type 2 diabetes mellitus with other circulatory complications
[2018-08-16] MEDS ORDERED: *HR* Metoprolol 5 MG/5 ML VIAL IVP ONE (08:50)
[2018-08-16] MEDS ORDERED: Iron Sucrose Complex 200 MG in 0.9 % Sodium Chloride 100 ML IVPB ONE (09:00)
[2018-08-16] MEDS ORDERED: Levalbuterol 1 PUFF INHALER IH SCH (09:00)
[2018-08-16] MEDS ORDERED: Sennosides/Docusate Sodium TABLET PO PRN (09:05)
[2018-08-16] MEDS: Ipratropium Neb 0.5 MG NEBULIZER IH SCH ×5 (10:05→23:45)
--- NOTE | 2018-08-16 11:34 | Event Note ---
Date of Encounter: 08/16/18 Time of Encounter: 11:24 - Cardiology Event Note 83-year-old male with history of CABG in the past presents with significant/ severe anemia with a hemoglobin of 5.6. Chest pain likely demand ischemia. Patient not a candidate for AC or dual antiplatelet therapy due to previous GI bleed. Patient likely may have underlying coronary artery disease due to his extensive history however not a candidate for any invasive cardiac procedures at this time. Likely patient would benefit from improvement in his significant anemia which would likely alleviate symptoms and demand ischemia. If the patient becomes a candidate for dual antiplatelet therapy in the near future or during this hospitalization we may consider cardiac testing and further invasive procedures. Patient also has high risk for stroke due to his history of atrial fibrillation for which she is not on any antiplatelet or anticoagulations therapy. This has been discussed in the past by recent cardiology consult and has been unchanged.
[2018-08-16] MEDS: Levalbuterol 1 PUFF INHALER IH SCH ×4 (11:47→23:45)
[2018-08-16] MEDS: Insulin LISPRO 300 UNITS/3 ML VIAL SQ SCH ×3 (12:20→20:55)
[2018-08-16 12:26] LABS: Bilirubin,Urine Negative (Negative); Blood,Urine Negative (Negative); Clarity,Urine Clear (Clear); Color,Urine Dark Yellow (Yellow); Glucose,Urine (UA) Normal (Normal); Ketones,Urine Negative (Negative); Leukocyte Esterase,Urine Negative (Negative); Nitrite,Urine Negative (Negative); Protein,Urine Negative (Neg-Trace); Specific Gravity,Urine 1.019 (1.010-1.025); Urobilinogen,Urine Normal (Normal)
[2018-08-16] MEDS: Iron Sucrose Complex 200 MG in 0.9 % Sodium Chloride 100 ML IVPB SCH (17:57)
[2018-08-17] MEDS: Pantoprazole 40 MG in 0.9 % Sodium Chloride Mini Bag 100 ML IVC SCH ×3 (03:25→11:58)
[2018-08-17] MEDS: Ipratropium Neb 0.5 MG NEBULIZER IH SCH ×6 (04:26→23:30)
[2018-08-17] MEDS: Levalbuterol 1 PUFF INHALER IH SCH ×6 (04:26→23:30)
[2018-08-17 05:03] LABS: Basophils % 0.3 %; Eosinophils # 0.1 K/mcL (0.0-0.6); Eosinophils % 0.6 %; Hemoglobin 8.3 g/dL (12.9-16.9); Immature Granulocytes % 0.9 % (0-4); Lymphocytes # 1.1 K/mcL (0.6-4.6); Lymphocytes % 12.3 %; Mean Corpuscular HGB Conc 30.7 g/dL (31.6-35.5); Mean Corpuscular Hemoglobin 23.7 pg (28.0-33.3); Mean Corpuscular Volume 77.1 fL (83.0-100.0); Mean Platelet Volume 10.7 fL (9.4-12.4); Monocytes # 0.8 K/mcL (0.0-1.3); Monocytes % 9.3 %; Neutrophils # 6.9 K/mcL (1.6-8.9); Nucleated Red Blood Cells 1.5 /100 WBC (0); Platelet Count 147 K/mcL (140-400); Red Cell Distribution Width 19.3 % (11.5-14.5); Segmented Neutrophils % 76.6 %
--- NOTE | 2018-08-17 08:17 | Internal Med Progress Note ---
Hospitalist Progress Note - Encounter Date of Encounter: 08/17/18 Time of Encounter: 07:40 - Subjective Interval History: Patient is complaining of nausea, patient stated she has very poor appetite lately, even the smell of food making him nauseated. Patient is complaining of gastroesophageal reflux disease-like symptom which is so severe especially when he started eating. Patient did not eat his breakfast or lunch yesterday he had a small dinner which make him sick to his stomach. Patient denies any chest pain or shortness of breath - Exam Vitals: Temp Pulse Resp BP Pulse Ox 97.9 F 101 18 108/73 93 08/17/18 07:11 08/17/18 07:11 08/17/18 07:11 08/17/18 07:11 08/17/18 07:11 Exam: as above - Assessment and Plan (1) Anemia Current Visit: No Status: Acute (2) CHF (congestive heart failure) Current Visit: No Status: Acute (3) Chest pain Current Visit: No Status: Acute (4) NSTEMI (non-ST elevated myocardial infarction) Current Visit: No Status: Acute (5) Iron deficiency anemia due to dietary causes Current Visit: No Status: Chronic (6) Malnutrition Current Visit: Yes Status: Acute (7) Gastritis Current Visit: Yes Status: Acute - Summary of Assessment and Plan Summary of Assessment and Plan: Add Protonix to 40 mg twice a day, add Carafate 1 g before meals at bedtime, lactulose for constipation, need appetite stimulant may consider also remeron to help with his anxiety sleep as well as poor appetite, close monitoring of H& H for next 24-hour, recheck BMP, high BUN cannot rule out GI bleeding stool for occult blood test was negative, awaiting stool for occult blood, if stool for occult blood is positive and H&H is trending down consider EGD, possible discharge next 24-hour if H&H stable and patient tolerating meal, with his comorbidity may consider palliative care consult - Time Spent with Patient Total time spent is greater than 50% in coordination of care (as documented) at patient's floor/unit and/or counseling patient: 25 - 35 minutes Plan of Care Discussed with: nurse Internal Medicine: Result - Labs CBC & Chem 7: 08/17/18 04:43 08/16/18 02:47 Labs: Short CBC 08/17/18 Range/Units 04:43 WBC 9.0 (4.3-11.1) K/mcL Hgb 8.3 L (12.9-16.9) g/dL Hct 27.0 L (37.5-50.1) % Plt Count 147 (140-400) K/mcL Neutrophils # 6.9 (1.6-8.9) K/mcL Cardiac Enzymes 08/16/18 Range/Units 08:18 Troponin I 2.25 H* (< 0.04) ng/mL Urine 08/16/18 Range/Units 12:04 Urine Color Dark Yellow (Yellow) Urine Clarity Clear (Clear) Urine pH 6.0 (5.0-8.0) pH Units Ur Specific [place] 1.019 (1.010-1.025) Urine Protein Negative (Neg-Trace) mg/dL Urine Glucose (UA) Normal (Normal) mg/dL - ABG Interpretation ABG results: PT/INR, D-dimer PT 13.3 Seconds (9.4-12.1) H 08/15/18 12:54 - Impressions Impressions Chest X-Ray 08/16/18 08:52 IMPRESSION: Persistent pleural effusions with atelectasis left greater than right. D/ / 08/16/2018 14:39:04 Elan Jara MD / priscila Interpreting Provider: Elan Jara MD Consult Discharge Plan - Plan [facility]errals: [facility] [Primary Care Provider] - Exam - Vital Signs Vital signs: Initial Vital Signs Pulse Ox 100 08/15/18 12:59 Vital Signs - Last 8 Hours Temp Pulse Resp BP Pulse Ox 08/17/18 07:11 97.9 F 101 18 108/73 93 08/17/18 04:29 16 100 08/17/18 03:27 97.8 F 99 17 109/65 92 Intake and Output 08/16/18 08/17/18 08/17/18 23:59 07:59 15:59 Intake Total 670 / 670 100 / 100 Output Total 550 / 550 300 / 300 Balance 120 / 120 -200 / -200 Intake: IV Fluids 310 / 310 100 / 100 Protonix 40 MG In 0.9 % Sodium 200 / 200 100 / 100 Chloride (Mini-Bag +) 100 ML @ 20 mls/hr IVC .Q5H [facility] Rx#: [id number] Venofer 200 MG In 0.9 % Sodium 110 / 110 Chloride 100 ML @ 200 mls/hr IVPB QPM [facility] Rx#:[id number] Oral 360 / 360 Output: Urine 550 / 550 300 / 300 Other: Meal Dinner Percent of Meal Consumed 10% Weight 88.3 kg Blood Glucose* 278 226 Patient Weight 08/17/18 23:59 Weight 88.3 kg - General Appearance General appearance: chronically ill, fatigue, anxious EENT: mucous membranes moist Neck: no JVD, no thyromegaly, supple Respiratory: clear Cardiology: no murmurs, no rub, no gallops, no edema, regular rate, regular rhythm, normal S1, normal S2 Gastrointestinal: normoactive bowel sounds, no guarding, no organomegaly Integumentary: ulcer Additional Comments: Superficial ulceration discarding on Oscar of tibia Neurologic: no focal deficit, no asterixis, alert and oriented x3 (1) Anemia Qualifiers: Anemia type: iron deficiency Iron deficiency anemia type: inadequate dietary iron intake Qualified Code(s): D50.8 - Other iron deficiency anemias (2) CHF (congestive heart failure) Qualifiers: Heart failure type: combined systolic and diastolic Heart failure chronicity : acute on chronic Qualified Code(s): I50.43 - Acute on chronic combined systolic (congestive) and diastolic (congestive) heart failure (3) Chest pain Qualifiers: Chest pain type: unspecified Qualified Code(s): R07.9 - Chest pain, unspecified (7) Gastritis Qualifiers: Gastritis type: unspecified gastritis Chronicity: chronic Gastritis bleeding : without bleeding Qualified Code(s): K29.50 - Unspecified chronic gastritis without bleeding
[2018-08-17] MEDS ORDERED: Saliva Stimulant 100ml BOTTLE PO PRN (08:31)
[2018-08-17] MEDS: Insulin LISPRO 300 UNITS/3 ML VIAL SQ SCH ×4 (08:46→21:20)
[2018-08-17 08:51] LABS: BUN/Creatinine Ratio 33 (6-26); Blood Urea Nitrogen 43 mg/dL (8-23); Carbon Dioxide 25 mEq/L (23-29); Chloride 96 mEq/L (98-107); Glucose 223 mg/dL (70-105); Osmolality,Calculated 294 (280-300); Sodium 133 mEq/L (136-145); eGFR For Non-African Americans 52 (> 60)
[2018-08-17] MEDS: Sucralfate 1 GM TABLET PO SCH ×4 (08:52→21:17)
[2018-08-17] MEDS: Lactulose Oral Soln 20 GM/30 ML UDC PO SCH ×2 (08:52→21:17)
[2018-08-17] MEDS: Megestrol Acetate 400 MG/10 ML UDC PO SCH (08:53)
[2018-08-17] MEDS: Cholecalciferol (D-3) 1,000 UNIT TABLET PO SCH (08:53)
[2018-08-17 09:47] LABS: Folate > 22.3 ng/mL (3.0-16.0); Vitamin B12 > 1500 pg/mL (250-1100)
[2018-08-17] MEDS: Pantoprazole 40 MG VIAL IVP SCH (17:00)
[2018-08-17] MEDS: Iron Sucrose Complex 200 MG in 0.9 % Sodium Chloride 100 ML IVPB SCH (18:19)
[2018-08-17] MEDS: Mirtazapine 15 MG TABLET PO SCH (21:18)
[2018-08-18] MEDS: Levalbuterol 1 PUFF INHALER IH SCH ×5 (03:28→20:09)
[2018-08-18] MEDS: Ipratropium Neb 0.5 MG NEBULIZER IH SCH ×5 (03:28→20:09)
[2018-08-18 04:21] LABS: Basophils % 0.5 %; Eosinophils # 0.2 K/mcL (0.0-0.6); Eosinophils % 2.1 %; Hematocrit 26.2 % (37.5-50.1); Hemoglobin 7.7 g/dL (12.9-16.9); Immature Granulocytes % 0.7 % (0-4); Lymphocytes % 11.6 %; Mean Corpuscular HGB Conc 29.4 g/dL (31.6-35.5); Mean Corpuscular Hemoglobin 23.4 pg (28.0-33.3); Mean Corpuscular Volume 79.6 fL (83.0-100.0); Monocytes # 0.8 K/mcL (0.0-1.3); Monocytes % 10.3 %; Neutrophils # 6.1 K/mcL (1.6-8.9); Nucleated Red Blood Cells 2.9 /100 WBC (0); Platelet Count 144 K/mcL (140-400); Red Blood Count 3.29 M/mcL (4.19-5.50); Red Cell Distribution Width 19.5 % (11.5-14.5); Segmented Neutrophils % 74.8 %
[2018-08-18 04:40] LABS: BUN/Creatinine Ratio 36 (6-26); Blood Urea Nitrogen 38 mg/dL (8-23); Calcium 8.8 mg/dL (8.6-10.3); Carbon Dioxide 28 mEq/L (23-29); Chloride 96 mEq/L (98-107); Glucose 178 mg/dL (70-105); Osmolality,Calculated 287 (280-300); Potassium 3.8 mEq/L (3.5-5.1); Sodium 132 mEq/L (136-145); eGFR For Non-African Americans > 60 (> 60)
[2018-08-18] MEDS: Pantoprazole 40 MG VIAL IVP SCH (05:22)
[2018-08-18] MEDS: Sucralfate 1 GM TABLET PO SCH (08:14)
[2018-08-18] MEDS: Cholecalciferol (D-3) 1,000 UNIT TABLET PO SCH (08:21)
[2018-08-18] MEDS: Lactulose Oral Soln 20 GM/30 ML UDC PO SCH ×2 (08:21→21:08)
[2018-08-18] MEDS: Megestrol Acetate 400 MG/10 ML UDC PO SCH (08:22)
[2018-08-18] MEDS: Insulin LISPRO 300 UNITS/3 ML VIAL SQ SCH ×4 (08:22→21:11)
--- NOTE | 2018-08-18 10:27 | Internal Med Progress Note ---
Hospitalist Progress Note - Encounter Date of Encounter: 08/18/18 Time of Encounter: 10:15 - Subjective Interval History: Seen and examined at the bedside 83 M with coronary artery disease status post CABG in the past, admitted with severe anemia with hemoglobin of 5.6 and chest pain that he due to demand ischemia. He has additional medical history of colon cancer, HTN, CABG in 2007, pacemarker placement in 2007, Colon Ca treated with resection in 2009, and an IVC filter after dx of DVT in left leg, with an active DVT in right leg Patient had not been on any antiplatelet therapy due to previous GIB . 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 He has also been receiving iron infusion. At time of review, this mrn, he is euvolemic and denies new complains Hb seems to be downtrending, will monitor for the next 24 hrs I consulted with Dr. Meadows, who plans for a push enteroscopy a.m He also recommends one more unit of RBCS, will order - Exam Vitals: Temp Pulse Resp BP Pulse Ox 97.8 F 93 18 103/65 97 08/18/18 07:26 08/18/18 07:26 08/18/18 07:55 08/18/18 07:26 08/18/18 07:55 Exam: Gen: VSS Psych: Normal mood Neuro: AAOX3, moves all extremities , no focal deficits HEENT: Moist oral mucoa Chest: CTAB Heart: S1, S2 only, no m/g/r Abdomen: Soft, not tender Extremities: NO pedal edema Skin: No rash - Assessment and Plan (1) Anemia Current Visit: Yes Status: Acute Assessment and Plan: Acute on chronic, likely due to GIB, in addition to iron deficiency anemia Presenting Hb was 5.6, s/p RBCs X3, Hb improved to 8.3 (7.7 this a.m EGD and colonoscopy from 06/2018 noted GI consulted for recommendations-they recommend NPO from [place] for push enteroscopy a.m, and transfusion of one more RBCs Continue to monitor Hold iron infusion for now (2) CHF (congestive heart failure) Current Visit: Yes Status: Chronic Assessment and Plan: euvolemic at this time, continue home meds (3) Chest pain Current Visit: Yes Status: Acute Assessment and Plan: Likely due to demand ischemia from severe anemia. Cardiology was consulted and recommendations noted, no intervention planned, continue medical management. Patient is not a candidate for dual antiplatelet therapy due to recurrent GI bleed and anemia is. Currently chest pain-free. Continue home medications. (4) Iron deficiency anemia due to dietary causes Current Visit: Yes Status: Chronic Assessment and Plan: Hold iron for now Continue to monitor (5) Malnutrition Current Visit: Yes Status: Chronic Assessment and Plan: continue current management (6) Gastritis Current Visit: Yes Status: Chronic Assessment and Plan: continue PPIs and sucralfate (7) Diabetes mellitus Current Visit: Yes Status: Chronic Assessment and Plan: continue sliding scale insulin (8) CAD (coronary artery disease) Current Visit: Yes Status: Chronic Assessment and Plan: on statin and BB, continue same (9) HLD (hyperlipidemia) Current Visit: Yes Status: Chronic Assessment and Plan: continue same (10) HTN (hypertension) Current Visit: Yes Status: Chronic Assessment and Plan: continue current meds (11) Paroxysmal atrial fibrillation Current Visit: Yes Status: Chronic Assessment and Plan: continue metoprolol, HR controlled, not on a/c due to recurrent GIB and anemia - Time Spent with Patient Total time spent is greater than 50% in coordination of care (as documented) at patient's floor/unit and/or counseling patient: Plan of Care Discussed with: patient Internal Medicine: Result - Labs CBC & Chem 7: 08/18/18 03:54 08/18/18 03:54 Labs: Short CBC 08/18/18 Range/Units 03:54 WBC 8.2 (4.3-11.1) K/mcL Hgb 7.7 L (12.9-16.9) g/dL Hct 26.2 L (37.5-50.1) % Plt Count 144 (140-400) K/mcL Neutrophils # 6.1 (1.6-8.9) K/mcL BMP 08/18/18 03:54 Sodium 132 L Potassium 3.8 Chloride 96 L Carbon Dioxide 28 BUN 38 H Creatinine 1.06 Glucose 178 H Calcium 8.8 - ABG Interpretation ABG results: PT/INR, D-dimer PT 13.3 Seconds (9.4-12.1) H 08/15/18 12:54 Consult Discharge Plan - Plan [facility]errals: [facility] [Primary Care Provider] - (1) Anemia Qualifiers: Anemia type: iron deficiency Iron deficiency anemia type: inadequate dietary iron intake Qualified Code(s): D50.8 - Other iron deficiency anemias (2) CHF (congestive heart failure) Qualifiers: Heart failure type: combined systolic and diastolic Heart failure chronicity : acute on chronic Qualified Code(s): I50.43 - Acute on chronic combined systolic (congestive) and diastolic (congestive) heart failure (3) Chest pain Qualifiers: Chest pain type: unspecified Qualified Code(s): R07.9 - Chest pain, unspecified (5) Malnutrition Qualifiers: Malnutrition type: protein-calorie malnutrition Protein-calorie malnutrition severity: unspecified severity Qualified Code(s): E46 - Unspecified protein- calorie malnutrition (6) Gastritis Qualifiers: Gastritis type: unspecified gastritis Chronicity: chronic Gastritis bleeding : without bleeding Qualified Code(s): K29.50 - Unspecified chronic gastritis without bleeding (7) Diabetes mellitus Qualifiers: Diabetes mellitus type: type 2 Diabetes mellitus meterman insulin use: without correction use Diabetes mellitus complication status: with circulatory complication Diabetes mellitus complication detail: with other circulatory complications Qualified Code(s): E11.59 - Type 2 diabetes mellitus with other circulatory complications (8) CAD (coronary artery disease) Qualifiers: Coronary Disease-Associated Artery/Lesion type: bypass graft [place] vs. transplanted heart: [place] heart Associated angina: without angina Qualified Code(s): I25.810 - Atherosclerosis of coronary artery bypass graft(s) without angina pectoris (9) HLD (hyperlipidemia) Qualifiers: Hyperlipidemia type: unspecified Qualified Code(s): E78.5 - Hyperlipidemia, unspecified (10) HTN (hypertension) Qualifiers: Hypertension type: essential hypertension Qualified Code(s): I10 - Essential (primary) hypertension
[2018-08-18] MEDS ORDERED: 0.9 % Sodium Chloride Mini Bag 100 ML ONE (16:27)
[2018-08-18] MEDS: Mirtazapine 15 MG TABLET PO SCH (21:11)
[2018-08-19 04:11] LABS: Basophils % 0.4 %; Eosinophils # 0.3 K/mcL (0.0-0.6); Eosinophils % 3.8 %; Hematocrit 28.9 % (37.5-50.1); Hemoglobin 8.8 g/dL (12.9-16.9); Immature Granulocytes % 0.8 % (0-4); Lymphocytes # 1.3 K/mcL (0.6-4.6); Lymphocytes % 17.8 %; Mean Corpuscular HGB Conc 30.4 g/dL (31.6-35.5); Mean Corpuscular Hemoglobin 24.9 pg (28.0-33.3); Mean Corpuscular Volume 81.6 fL (83.0-100.0); Mean Platelet Volume 10.3 fL (9.4-12.4); Monocytes # 0.8 K/mcL (0.0-1.3); Monocytes % 10.7 %; Neutrophils # 4.9 K/mcL (1.6-8.9); Nucleated Red Blood Cells 1.5 /100 WBC (0); Platelet Count 132 K/mcL (140-400); Red Blood Count 3.54 M/mcL (4.19-5.50); Red Cell Distribution Width 21.6 % (11.5-14.5); Segmented Neutrophils % 66.5 %
[2018-08-19] MEDS: Ipratropium Neb 0.5 MG NEBULIZER IH SCH ×7 (04:15→23:53)
[2018-08-19] MEDS: Levalbuterol 1 PUFF INHALER IH SCH ×7 (04:15→23:53)
[2018-08-19 04:32] LABS: BUN/Creatinine Ratio 34 (6-26); Blood Urea Nitrogen 35 mg/dL (8-23); Calcium 8.8 mg/dL (8.6-10.3); Carbon Dioxide 28 mEq/L (23-29); Chloride 96 mEq/L (98-107); Glucose 181 mg/dL (70-105); Osmolality,Calculated 283 (280-300); Potassium 4.2 mEq/L (3.5-5.1); Sodium 130 mEq/L (136-145); eGFR For Non-African Americans > 60 (> 60)
[2018-08-19] MEDS: Insulin LISPRO 300 UNITS/3 ML VIAL SQ SCH ×4 (07:54→20:56)
[2018-08-19] MEDS: Lactulose Oral Soln 20 GM/30 ML UDC PO SCH ×2 (07:58→20:47)
[2018-08-19] MEDS: Cholecalciferol (D-3) 1,000 UNIT TABLET PO SCH (07:58)
[2018-08-19] MEDS: Megestrol Acetate 400 MG/10 ML UDC PO SCH (07:58)
--- NOTE | 2018-08-19 09:38 | Electrocardiograph Report ---
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
--- NOTE | 2018-08-19 10:39 | Internal Med Progress Note ---
Hospitalist Progress Note - Encounter Date of Encounter: 08/19/18 Time of Encounter: 10:39 - Subjective Interval History: Seen and examined at the bedside 83 M with coronary artery disease status post CABG in the past, admitted with severe anemia with hemoglobin of 5.6 and chest pain that he due to demand ischemia. He has additional medical history of colon cancer, HTN, CABG in 2007, pacemarker placement in 2007, Colon Ca treated with resection in 2009, and an IVC filter after dx of DVT in left leg, with an active DVT in right leg Patient had not been on any antiplatelet therapy due to previous GIB . 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 He has also been receiving iron infusion. His complain this mrn is of bronchitis and needing breathing trt His chest is CTAB He is awaiting push enteroscopy by GI MACIE vidal a.m, after procedure - Exam Vitals: Temp Pulse Resp BP Pulse Ox 97.9 F 90 18 114/73 100 08/19/18 07:34 08/19/18 07:34 08/19/18 07:34 08/19/18 07:34 08/19/18 07:34 Exam: Gen: VSS Psych: Normal mood Neuro: AAOX3, moves all extremities , no focal deficits HEENT: Moist oral mucoa Chest: CTAB Heart: S1, S2 only, no m/g/r Abdomen: Soft, not tender Extremities: NO pedal edema Skin: No rash - Assessment and Plan (1) Anemia Current Visit: Yes Status: Acute Assessment and Plan: Acute on chronic, likely due to GIB, in addition to iron deficiency anemia Presenting Hb was 5.6, s/p RBCs X3, Hb improved to 8.3 (7.7 this a.m EGD and colonoscopy from 06/2018 noted GI consulted for recommendations-they recommend NPO from [place] for push enteroscopy today s/p 4 units RBCs HB today at 8.8 Continue to monitor (2) CHF (congestive heart failure) Current Visit: Yes Status: Chronic Assessment and Plan: euvolemic at this time, continue home meds (3) Chest pain Current Visit: Yes Status: Acute Assessment and Plan: Likely due to demand ischemia from severe anemia. Cardiology was consulted and recommendations noted, no intervention planned, continue medical management. Patient is not a candidate for dual antiplatelet therapy due to recurrent GI bleed and anemia is. Currently chest pain-free. Continue home medications. (4) Iron deficiency anemia due to dietary causes Current Visit: Yes Status: Chronic Assessment and Plan: Resume po iron Continue to monitor (5) Malnutrition Current Visit: Yes Status: Chronic Assessment and Plan: continue current management (6) Gastritis Current Visit: Yes Status: Chronic Assessment and Plan: continue PPIs and sucralfate (7) Diabetes mellitus Current Visit: Yes Status: Chronic Assessment and Plan: continue sliding scale insulin (8) CAD (coronary artery disease) Current Visit: Yes Status: Chronic (9) HLD (hyperlipidemia) Current Visit: Yes Status: Chronic (10) HTN (hypertension) Current Visit: Yes Status: Chronic Assessment and Plan: continue current meds (11) Paroxysmal atrial fibrillation Current Visit: Yes Status: Chronic Assessment and Plan: continue metoprolol, HR controlled, not on a/c due to recurrent GIB and anemia (12) Duodenal ulcer Current Visit: Yes Status: Acute Assessment and Plan: Non-bleeding,cratered, with pigmented material, per enteroscopy done today 08/19 s/p clipping NO proximal jejunal findings Continue PPI and Sucralfate - Time Spent with Patient Total time spent is greater than 50% in coordination of care (as documented) at patient's floor/unit and/or counseling patient: Plan of Care Discussed with: patient Internal Medicine: Result - Labs CBC & Chem 7: 08/19/18 03:55 08/19/18 03:55 Labs: Short CBC 08/19/18 Range/Units 03:55 WBC 7.4 (4.3-11.1) K/mcL Hgb 8.8 L (12.9-16.9) g/dL Hct 28.9 L (37.5-50.1) % Plt Count 132 L (140-400) K/mcL Neutrophils # 4.9 (1.6-8.9) K/mcL BMP 08/19/18 03:55 Sodium 130 L Potassium 4.2 Chloride 96 L Carbon Dioxide 28 BUN 35 H Creatinine 1.03 Glucose 181 H Calcium 8.8 - ABG Interpretation ABG results: PT/INR, D-dimer PT 13.3 Seconds (9.4-12.1) H 08/15/18 12:54 Consult Discharge Plan - Plan [facility]errals: [facility] [Primary Care Provider] - (1) Anemia Qualifiers: Anemia type: iron deficiency Iron deficiency anemia type: chronic blood loss Qualified Code(s): D50.0 - Iron deficiency anemia secondary to blood loss ( chronic) (2) CHF (congestive heart failure) Qualifiers: Heart failure type: combined systolic and diastolic Heart failure chronicity : acute on chronic Qualified Code(s): I50.43 - Acute on chronic combined systolic (congestive) and diastolic (congestive) heart failure (3) Chest pain Qualifiers: Chest pain type: unspecified Qualified Code(s): R07.9 - Chest pain, unspecified (5) Malnutrition Qualifiers: Malnutrition type: protein-calorie malnutrition Protein-calorie malnutrition severity: unspecified severity Qualified Code(s): E46 - Unspecified protein- calorie malnutrition (6) Gastritis Qualifiers: Gastritis type: unspecified gastritis Chronicity: chronic Gastritis bleeding : without bleeding Qualified Code(s): K29.50 - Unspecified chronic gastritis without bleeding (7) Diabetes mellitus Qualifiers: Diabetes mellitus type: type 2 Diabetes mellitus long-term insulin use: without long-term use Diabetes mellitus complication status: with circulatory complication Diabetes mellitus complication detail: with other circulatory complications Qualified Code(s): E11.59 - Type 2 diabetes mellitus with other circulatory complications (8) CAD (coronary artery disease) Qualifiers: Coronary Disease-Associated Artery/Lesion type: bypass graft [place] vs. transplanted heart: [place] heart Associated angina: without angina Qualified Code(s): I25.810 - Atherosclerosis of coronary artery bypass graft(s) without angina pectoris (9) HLD (hyperlipidemia) Qualifiers: Hyperlipidemia type: unspecified Qualified Code(s): E78.5 - Hyperlipidemia, unspecified (10) HTN (hypertension) Qualifiers: Hypertension type: essential hypertension Qualified Code(s): I10 - Essential (primary) hypertension
--- NOTE | 2018-08-19 11:00 | Gastroenterology Consult Note ---
<Rasta Kwok - Last Filed: 08/19/18 10:58> Date of Encounter: 08/19/18 Time of Encounter: 10:00 - Assessment and plan (1) Anemia Status: Acute Assessment and plan: Hgb 5.6 on admission and today Hgb 8.8. He has received total of 4 units PRBC since admission. Continue to monitor CBC and transfuse PRBC as needed. Plan for repeat push enteroscopy today. Keep patient NPO. Capsule endoscopy ordered as outpatient on 08/11/2018, awaiting scheduling of the procedure. Qualifiers: Anemia type: iron deficiency Iron deficiency anemia type: chronic blood loss Qualified Code(s): D50.0 - Iron deficiency anemia secondary to blood loss (chronic) - Time Spent With Patient Total time spent is greater than 50% in coordination of care (as documented) at patient's floor/unit and/or counseling patient: GI History of Present Illness - Data of Consult Patient: known to practice within the last 3 years Consult date: 08/19/18 Requesting Physician: Alvaro Mayorga MD - Consult Narrative Reason for consult: GI bleed History of present illness: Mr. Llanes is a 83 year old male with PMHx of colon cancer, CAD, DVT, DM, GERD, HLD, HTN, [place] CABG, pacemaker, DVT, anemia who presented to the [facility] with complaints of vomiting all night. Denies any hematemesis or coffee ground emesis. Denies any melena or hematochezia. Admits to upper abdominal discomfort which started after multiple episodes of wreching. He admits to feeling light- headed, dizzy and fatigued. CT A/P with no acute abnormality in abdomen or pelvis, s/p right hemicolectomy and Daniela fundoplication. The patient did have and EGD and colonoscopy in June of [address] Murray. Push enteroscopy showed AVMs of the duodenum, which were cauterized but were not actively bleeding at the time of evaluation. The patient was last seen in the gastroenterology office on 08/11/18 and recommendation was made for capsule endoscopy. Procedures: Colonoscopy 06/12/2018 Dr. Murray: Normal Push enteroscopy 06/12/2018 Dr. Murray: Non-bleeding AVM in duodenum, treated with APC. Two non-bleeding AVM in jejunum, treated with APC. NSAIDs: ASA Anticoagulation: None Past Med Surg Social Fam HX - Past Medical History Medical history: arthritis, cancer (Colon cancer status post partial colectomy), COPD, coronary artery disease (Status post coronary artery bypass graft), DVT, diabetes, GERD, glaucoma, hyperlipidemia, hypertension, myocardial infarction, peripheral artery disease, TIA, other Additional medical history: MRSA. Neoplasm of ascending colon Psychiatric history: depression - Past Surgical History Surgical History: coronary bypass (CABG), pacemaker Additional surgical history: [place] Filter, fem pop right leg, broken left ankle, bone spur and cyst left foot, neck and back surgeries - Social History Smoking Status: Former smoker Smokeless Tobacco Status: No Alcohol use: rarely Drug use: none - Family History Father Adopted: No Family Member Ethnicity: Non- Living Status: Hx Family Cardiac Disorders: Yes Hx Family Respiratory Disorders: No Hx Family Cancer: No Hx Family GI Disorders: No Hx Family Endocrine Disorder: No Hx Family Neuromuscular Disorders: No Hx Family Neurologic Disorders: No Hx Family HEENT Disorders: No Hx Family Autoimmune Disorders: No Mother Family Member Ethnicity: Non- Living Status: Hx Family Cardiac Disorders: Yes Hx Family Cancer: Yes - Gastrointestinal Gastrointestinal: Present: as per HPI - Constitutional Constitutional: as per HPI - EENT Eyes: as per HPI Ears: Present: as per HPI Nose, mouth and throat: Present: as per HPI - Cardiovascular Cardiovascular ROS: Present: as per HPI - Respiratory Respiratory IM: Present: as per HPI - Genitourinary Genitourinary: Absent: change in color, Urinary frequency - Neurological ROS Neurological GI: Present: as per HPI - Hematologic/Lymphatic Hematologic/Lymphatic pediatric: Present: as per HPI - Musculoskeletal Musculoskeletal ROS GI: Present: as per HPI - Integumentary Integumentary GI: Present: as per HPI - Psychiatric ROS Psychiatric GI: Present: as per HPI - Endocrine Endocrine IM: Present: as per HPI - Constitutional Vitals: Temp Pulse Resp BP Pulse Ox 97.9 F 90 18 114/73 100 08/19/18 07:34 08/19/18 07:34 08/19/18 07:34 08/19/18 07:34 08/19/18 07:34 General appearance: Present: cooperative, A&O X 3, no acute distress, answers questions appropriately - Head Head exam: Present: atraumatic, normocephalic - Eye Eye exam: Present: normal appearance, sclera anicteric - ENT ENT exam: Present: mucous membranes dry - Neck Neck exam general surgery: Present: normal inspection, trachea midline - Respiratory Respiratory exam: Present: decreased breath sounds, CTAB. Absent: rales, rhonchi - Cardiovascular Cardiovascular exam: Present: RRR, +S1, +S2 - GI/Abdominal GI/Abdominal exam: Present: soft, no peritoneal signs. Absent: distended, firm, guarding, tenderness - Rectal Rectal exam: Present: deferred - Extremities Exam Extremities exam: Present: warm - Neurological Exam Neurological exam: Present: no focal deficits - Psychiatric Psychiatric exam: Present: normal affect, normal mood - Skin Skin exam: Present: dry, intact, normal color, warm Results - Labs CBC & Chem 7: 08/19/18 03:55 08/19/18 03:55 Labs: Last Result Calcium 8.8 mg/dL (8.6-10.3) 08/19/18 03:55 Troponin I 2.25 ng/mL (< 0.04) H* 08/16/18 08:18 Vitamin B12 > 1500 pg/mL (250-1100) H 08/17/18 08:22 Folate > 22.3 ng/mL (3.0-16.0) H 08/17/18 08:22 Entire Visit Hgb 8.8 g/dL (12.9-16.9) L 08/19/18 03:55 Hct 28.9 % (37.5-50.1) L 08/19/18 03:55 PT 13.3 Seconds (9.4-12.1) H 08/15/18 12:54 Folate > 22.3 ng/mL (3.0-16.0) H 08/17/18 08:22 - ABG ABG results: PT/INR, D-dimer PT 13.3 Seconds (9.4-12.1) H 08/15/18 12:54 Consult Discharge Plan - Plan Instructions: Metoprolol (By mouth), Sucralfate (By mouth), Omeprazole (By mouth), Chest Pain (DC), Gastritis (DC), Anemia (DC) Referrals: [facility] [Primary Care Provider] - Prescriptions: RX: Metoprolol [Lopressor] 12.5 mg PO BID #60 tablet RX: Omeprazole [PriLOSEC] 40 mg PO BIDAC #60 capsule. RX: Sucralfate [Carafate] 1 gm PO QIDAC #2 bottle <Nick Meadows - Last Filed: 08/31/18 22:17> - Time Spent With Patient Total time spent is greater than 50% in coordination of care (as documented) at patient's floor/unit and/or counseling patient: GI History of Present Illness - Data of Consult Requesting Physician: Alvaro Mayorga MD - Consult Narrative History of present illness: Mr. Llanes is a 83 year old male - Constitutional Vitals: Temp Pulse Resp BP Pulse Ox 96.8 F L 87 18 110/66 100 08/20/18 11:55 08/20/18 11:55 08/20/18 11:55 08/20/18 11:55 08/20/18 11:55 Results - Labs CBC & Chem 7: 08/20/18 04:09 08/20/18 04:09 Labs: Last Result Calcium 8.7 mg/dL (8.6-10.3) 08/20/18 04:09 Troponin I 2.25 ng/mL (< 0.04) H* 08/16/18 08:18 Vitamin B12 > 1500 pg/mL (250-1100) H 08/17/18 08:22 Folate > 22.3 ng/mL (3.0-16.0) H 08/17/18 08:22 Entire Visit Hgb 9.4 g/dL (12.9-16.9) L 08/20/18 04:09 Hct 32.0 % (37.5-50.1) L 08/20/18 04:09 PT 13.3 Seconds (9.4-12.1) H 08/15/18 12:54 Folate > 22.3 ng/mL (3.0-16.0) H 08/17/18 08:22 - ABG ABG results: PT/INR, D-dimer PT 13.3 Seconds (9.4-12.1) H 08/15/18 12:54 - Attending Attestation Plan push enteroscopy and colonsocopy. Possible AVMs as etiology. Discussed with patient and team. I have personally performed a face to face evaluation on this patient. I have reviewed and agree with the care plan. History and Exam by me shows:
[2018-08-19] MEDS ORDERED: Propofol 500 MG/50 ML INFUS..BTL ONE (11:15)
[2018-08-19] MEDS ORDERED: Lidocaine -MPF 2% 2 ML VIAL ONE (11:15)
--- NOTE | 2018-08-19 12:20 | Anesthesia Evaluation PreOp ---
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: TIA Other Medical History: Diabetes Type II, GERD Anesthesia History: No Prior Anesthetic Complications Alcohol Use: rarely Drug use: none Medications and Allergies Allopurinol [Zyloprim] 300 mg PO DAILY 05/29/18 [History] Aspirin [Adult Aspirin Regimen] 81 mg PO DAILY 05/29/18 [History] Atorvastatin [Lipitor] 20 mg PO HS 05/29/18 [History] Cholecalciferol (D-3) [Vitamin D] 1,000 unit PO DAILY 05/29/18 [History] Metformin HCl [Glucophage] 1,000 mg PO BID 05/29/18 [History] Isosorbide MONOnitrate (24 HR) [Imdur] 30 mg PO DAILY 06/23/18 [History] Saliva Stimulant [Biotene Moisturizing Rinse] 1 spray PO Q2H PRN #1 bottle 06/26 [Rx] DiphenhydraMINE [Benadryl] 25 mg PO BID PRN 07/17/18 [History] Polyethylene Glycol 3350 [MiraLAX] 17 gm PO DAILY PRN 07/17/18 [History] Furosemide [Lasix] 40 mg PO BID #60 tablet 07/21/18 [Rx] Metoprolol [Lopressor] 25 mg PO BID #60 tablet 07/21/18 [Rx] 3 Allergy/AdvReac Type Severity Reaction Status Date / Time diazepam [From Valium] Allergy Intermediate Unresponsiv Verified 08/15/18 12:53 e Penicillins Allergy Mild Hives Verified 08/15/18 12:53 adhesive tape Allergy Hives Verified 08/15/18 12:53 apixaban Allergy Anaphylaxis Verified 08/15/18 12:53 budesonide Allergy Anaphylaxis Verified 08/15/18 12:53 secobarbital Allergy Anaphylaxis Verified 08/15/18 12:53 albuterol AdvReac Flushing Verified 08/15/18 12:53 - Meds/Allergy Pre-op Review Medications Reviewed: Yes Allergies Reviewed: Yes Beta Blockers on Current Med List: Yes (Metoprolol 0758 today) Anesthesia Results - Labs 08/19/18 03:55 08/19/18 03:55 - Imaging EKG: report reviewed (ST) Additional studies: ECHO EF 50%, diastolic dysfunction Anesthesia Exam O2 Sat Weight 92.2 kg O2 Sat by Pulse Oximetry 95 O2 Sat by Pulse Oximetry 100 O2 Sat by Pulse Oximetry 97 O2 Sat by Pulse Oximetry 95 O2 Sat by Pulse Oximetry 95 O2 Sat by Pulse Oximetry 100 O2 Sat by Pulse Oximetry 97 O2 Sat by Pulse Oximetry 100 O2 Sat by Pulse Oximetry 97 O2 Sat by Pulse Oximetry 96 O2 Sat by Pulse Oximetry 97 O2 Sat by Pulse Oximetry 95 O2 Sat by Pulse Oximetry 98 O2 Sat by Pulse Oximetry 95 Vital Signs Pulse Ox 100 08/15/18 12:59 Height: 6'1 Weight: 203 lbs NPO (# of Hours): [place] Pain Scale: 0 - HEENT Pupil (Motor): Pupils equal, EOMI Oral Opening: Less than or equal to 3 - AGENCY CASHIER LOC: Oriented AGENCY CASHIER Motor: Normal RUE, Normal LUE, Normal RLE, Normal LLE, Normal Face AGENCY CASHIER Sensory: Normal: RUE, LUE, RLE, LLE, Face - Cardiac Rhythm: Regular Murmur: None JVD: No Carotid Bruit: No - Pulmonary Breath Sounds: bilateral Clear Respiratory Effort: Symmetrical Anesthesia Assess/Plan ASA Score: 3 (HTN CAD COPD DM) Modified Matti Scale for Level of Consciousness: Cooperative, oriented, and tranquil Anesthetic Plan: MAC Monitoring Plan: Standard Monitors Recovery Plan: Other (Discussed MAC, agrees to proceed)
[2018-08-19] MEDS ORDERED: *HR* PHENYLEPHRINE 1,000 MCG/10 ML SYRINGE IVP ONE (13:08)
--- NOTE | 2018-08-19 14:32 | Anesthesia Evaluation Post Op ---
Date of Encounter: 08/19/18 Time of Encounter: 14:30 - Vital Signs Vital Signs: Vital Signs/O2 Sat/Glucose, Most Current Temp Pulse Resp BP Pulse Ox 08/19/18 12:38 98.5 F 92 16 114/69 96 08/19/18 11:31 97.5 F L 90 18 111/67 95 - Lungs Lungs: Clear Ascult./Percussion - Airway Airway: Non-obstructed - Cardiovascular Regular Rate - Mental Status Mental Status: Alert & Oriented, Answers Appropriately - Pain Pain Scale: 0 - Nausea Vomiting Nausea Vomiting: Not Present - Hydration Hydration: NPO - Discharge PostOp Status: Transfer Patient to floor
[2018-08-19] MEDS: Mirtazapine 15 MG TABLET PO SCH (20:56)
[2018-08-20] MEDS: Ipratropium Neb 0.5 MG NEBULIZER IH SCH ×4 (04:02→15:59)
[2018-08-20] MEDS: Levalbuterol 1 PUFF INHALER IH SCH ×4 (04:02→15:59)
[2018-08-20 04:48] LABS: Basophils % 0.4 %; Eosinophils # 0.2 K/mcL (0.0-0.6); Eosinophils % 2.2 %; Hemoglobin 9.4 g/dL (12.9-16.9); Immature Granulocytes % 0.7 % (0-4); Lymphocytes # 1.3 K/mcL (0.6-4.6); Mean Corpuscular HGB Conc 29.4 g/dL (31.6-35.5); Mean Corpuscular Hemoglobin 24.9 pg (28.0-33.3); Mean Corpuscular Volume 84.7 fL (83.0-100.0); Monocytes # 0.7 K/mcL (0.0-1.3); Monocytes % 8.8 %; Nucleated Red Blood Cells 0.3 /100 WBC (0); Platelet Count 142 K/mcL (140-400); Red Blood Count 3.78 M/mcL (4.19-5.50); Red Cell Distribution Width 23.6 % (11.5-14.5); Segmented Neutrophils % 70.9 %
[2018-08-20 04:59] LABS: Neutrophils # 5.3 K/mcL (1.6-8.9)
[2018-08-20 05:05] LABS: BUN/Creatinine Ratio 35 (6-26); Blood Urea Nitrogen 32 mg/dL (8-23); Calcium 8.7 mg/dL (8.6-10.3); Carbon Dioxide 28 mEq/L (23-29); Chloride 96 mEq/L (98-107); Glucose 177 mg/dL (70-105); Osmolality,Calculated 285 (280-300); Potassium 4.1 mEq/L (3.5-5.1); Sodium 132 mEq/L (136-145); eGFR For Non-African Americans > 60 (> 60)
[2018-08-20 05:35] LABS: Anisocytosis 3+ (Not Present); Hypochromasia Present (Not Present); Macrocytosis Present (Not Present); Platelet Estimate Normal (Normal); Polychromasia 2+ (Not Present)
[2018-08-20] MEDS: Lactulose Oral Soln 20 GM/30 ML UDC PO SCH (07:44)
[2018-08-20] MEDS: Megestrol Acetate 400 MG/10 ML UDC PO SCH (08:09)
[2018-08-20] MEDS: Insulin LISPRO 300 UNITS/3 ML VIAL SQ SCH ×2 (08:20→12:04)
[2018-08-20] MEDS: Cholecalciferol (D-3) 1,000 UNIT TABLET PO SCH (08:30)
[2018-08-20 11:57] VITALS: BP 110/66
[2018-08-20] MEDS ORDERED: Furosemide 40 MG/4 ML VIAL IVP ONE (12:03)
--- NOTE | 2018-08-20 12:10 | Discharge Summary ---
- NOTES TO OUTPATIENT PROVIDER Notes to Outpatient Provider: 83 M with coronary artery disease status post CABG in the past, admitted with severe anemia with hemoglobin of 5.6 and chest pain that he due to demand ischemia. s/p 4 units RBCs with HB stable between 8- 9, s/p push enteroscopy with findings of Non-bleeding,cratered, with pigmented material, s/p clipping, no proximal jejunal findings, discharged home on sucralfate and PPI.Coreg has been decreased in dosage due to low blood pressures on admission. He also presented with PAULA which has since resolved, and he is able to resume his home dose of lasix at discharge. No intervention planned by cardiology for patient's chest pain as he has had multiple episodes of GIB and is unable to take antiPLT agents. He is discharged in clinically stable state , with home health. Follow up with PCP Orders not resulted at time of discharge: Pending orders 08/17/18 10:44 Occult Blood,Stool [BF] Routine 08/21/18 04:00 Complete Blood Count [HEME] AM 0400 Date of Encounter: 08/20/18 Time of Encounter: 12:06 - Discharge Diagnosis (1) Anemia Priority: Primary Status: Acute Qualifiers: Anemia type: iron deficiency Iron deficiency anemia type: chronic blood loss Qualified Code(s): D50.0 - Iron deficiency anemia secondary to blood loss (chronic) (2) CHF (congestive heart failure) Priority: Secondary Status: Chronic Qualifiers: Heart failure type: combined systolic and diastolic Heart failure chronicity: acute on chronic Qualified Code(s): I50.43 - Acute on chronic combined systolic (congestive) and diastolic (congestive) heart failure (3) Chest pain Priority: Primary Status: Acute Qualifiers: Chest pain type: unspecified Qualified Code(s): R07.9 - Chest pain, unspecified (4) 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 (5) Malnutrition Priority: Secondary Status: Chronic Qualifiers: Malnutrition type: protein-calorie malnutrition Protein-calorie malnutrition severity: unspecified severity Qualified Code(s): E46 - Unspecified protein-calorie malnutrition (6) Gastritis Priority: Secondary Status: Chronic Qualifiers: Gastritis type: unspecified gastritis Chronicity: chronic Gastritis bleeding: without bleeding Qualified Code(s): K29.50 - Unspecified chronic gastritis without bleeding (7) Diabetes mellitus Priority: Secondary Status: Chronic Qualifiers: Diabetes mellitus type: type 2 Diabetes mellitus half-way insulin use: without manager long term care use Diabetes mellitus complication status: with circulatory complication Diabetes mellitus complication detail: with other circulatory complications Qualified Code(s): E11.59 - Type 2 diabetes mellitus with other circulatory complications (8) CAD (coronary artery disease) Priority: Secondary Status: Chronic Qualifiers: Coronary Disease-Associated Artery/Lesion type: bypass graft [place] vs. transplanted heart: [place] heart Associated angina: without angina Qualified Code(s): I25.810 - Atherosclerosis of coronary artery bypass graft(s) without angina pectoris (9) HLD (hyperlipidemia) Priority: Secondary Status: Chronic Qualifiers: Hyperlipidemia type: unspecified Qualified Code(s): E78.5 - Hyperlipidemia , unspecified (10) HTN (hypertension) Priority: Secondary Status: Chronic Qualifiers: Hypertension type: essential hypertension Qualified Code(s): I10 - Essential (primary) hypertension (11) Paroxysmal atrial fibrillation Priority: Secondary Status: Chronic (12) Duodenal ulcer Priority: Primary Status: Acute Hospital course: Mr. Llanes is a 83 year old male with coronary artery disease status post CABG in the past, admitted with severe anemia with hemoglobin of 5.6 and chest pain that he due to demand ischemia. 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 He also has iron deficiency anemia, malnutrition and combined CHF He has received 4 units of transfusion and HB has been stable between - He is s/p push enteroscopy 08/20, which revealed 1 benign appearing intrinsic esophageal stenosis which was transfused, suspected gastroparesis, nonbleeding cratered Ulcer with pigmented material" in the third portion of the duodenum that was successfully clipped and no significant pathology in the proximal jejunum. Patient was seen and evaluated at the bedside this morning, status post physical and occupational therapy evaluation who recommended home health. He is hemodynamically stable and has no new symptoms He has chronic respiratory failure and is on home oxygen, currently requiring home dose of oxygen. Discharged home in a clinically stable condition with appropriate follow-up with primary care physician. Discharge discussed with: patient, nurse, case management - Time Spent with Patient Total time spent providing and/or coordinating discharge services: Greater than 30 minutes (40 mins spent on face to face, documentation, discussion with CSM, med rec and prescriptions) - Discharge Medications Prescriptions: Metoprolol [Lopressor] 12.5 mg PO BID #60 tablet Omeprazole [PriLOSEC] 40 mg PO BIDAC #60 capsule. Sucralfate [Carafate] 1 gm PO QIDAC #2 bottle Home Medications: Allopurinol [Zyloprim] 300 mg PO DAILY 05/29/18 [History] Atorvastatin [Lipitor] 20 mg PO HS 05/29/18 [History] Cholecalciferol (D-3) [Vitamin D] 1,000 unit PO DAILY 05/29/18 [History] Metformin HCl [Glucophage] 1,000 mg PO BID 05/29/18 [History] Isosorbide MONOnitrate (24 HR) [Imdur] 30 mg PO DAILY 06/23/18 [History] Saliva Stimulant [Biotene Moisturizing Rinse] 1 spray PO Q2H PRN #1 bottle 06/26 [Rx] DiphenhydraMINE [Benadryl] 25 mg PO BID PRN 07/17/18 [History] Polyethylene Glycol 3350 [MiraLAX] 17 gm PO DAILY PRN 07/17/18 [History] Furosemide [Lasix] 40 mg PO BID #60 tablet 07/21/18 [Rx] Darbepoetin [Aranesp] 40 mcg SQ QWEEK syringe 08/20/18 [Rx] Megestrol Acetate [Megace] 400 mg PO DAILY udc 08/20/18 [Rx] Metoprolol [Lopressor] 12.5 mg PO BID #60 tablet 08/20/18 [Rx] Omeprazole [PriLOSEC] 40 mg PO BIDAC #60 capsule. 08/20/18 [Rx] Sucralfate [Carafate] 1 gm PO QIDAC #2 bottle 08/20/18 [Rx] Allergies/Adverse Reactions: 3 Allergy/AdvReac Type Severity Reaction Status Date / Time diazepam [From Valium] Allergy Intermediate Unresponsiv Verified 08/15/18 12:53 e Penicillins Allergy Mild Hives Verified 08/15/18 12:53 adhesive tape Allergy Hives Verified 08/15/18 12:53 apixaban Allergy Anaphylaxis Verified 08/15/18 12:53 budesonide Allergy Anaphylaxis Verified 08/15/18 12:53 secobarbital Allergy Anaphylaxis Verified 08/15/18 12:53 albuterol AdvReac [place] Verified 08/15/18 12:53 Date of admission: 08/15/18 19:20 [facility] care physician: [facility] Consults: 08/18/18 13:11 Consult to Gastroenterology [CONS] Routine Consulting Provider: Gastroenterology Tayla Reason for Consult: GIB Call Completed: Yes 08/19/18 15:29 Consult to Occupational Therapy [CONS] Routine Comment: Evaluate, develop and implement POC Reason for Consult: Deconditioning Does patient have active BEDREST order?: No Is patient medically & hemodynamically stable?: Yes Consult to Physical Therapy [CONS] Routine Comment: Evaluate, develop and implement POC Reason for Consult: Deconditioning Does patient have active BEDREST order?: No Is patient medically & hemodynamically stable?: Yes Discharging clinician: Alvaro Mayorga Anticipated date of discharge: 08/20/18 - Constitutional Vitals: Temp Pulse Resp BP Pulse Ox 96.8 F L 87 18 110/66 100 08/20/18 11:55 08/20/18 11:55 08/20/18 11:55 08/20/18 11:55 08/20/18 11:55 General appearance: Present: cooperative, A&O X 3, pleasant, no acute distress Exam: en: VSS Psych: Normal mood Neuro: AAOX3, moves all extremities , no focal deficits HEENT: Moist oral mucoa Chest: few scattered bibasal crackles, Heart: S1, S2 only, no m/g/r Abdomen: Soft, not tender Extremities: NO pedal edema Skin: No rash - Patient Status Disposition: Home Health Service Condition: Fair Functional capacity at discharge: uses cane/walker Overall status at discharge: patient is progressing back to baseline - Discharge Instructions Follow Up With: [facility] [Primary Care Provider[facility] - - Diet and Activity Activity: wear oxygen at all times Diet: diabetic diet, low fat, low cholesterol, low salt diet
--- NOTE | 2018-08-20 12:23 | Physician Discharge Referral ---
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 For more information, call the [place] Tobacco Quit Line at 5-878-BGYN-NOW. - Diet/Nutrition Diet/Nutrition Orders: Cardiac, No Concentrated Sweets - Activity Activity Orders: Up ad serafin, Walker - Services Needed Following services are medically necessary services: Nursing, Home Health Aide, Physical Therapy, Occupational Therapy - Transfer Medications Prescriptions: Metoprolol [Lopressor] 12.5 mg PO BID #60 tablet Omeprazole [PriLOSEC] 40 mg PO BIDAC #60 capsule. Sucralfate [Carafate] 1 gm PO QIDAC #2 bottle Home Medications: Allopurinol [Zyloprim] 300 mg PO DAILY 05/29/18 [History] Atorvastatin [Lipitor] 20 mg PO HS 05/29/18 [History] Cholecalciferol (D-3) [Vitamin D] 1,000 unit PO DAILY 05/29/18 [History] Metformin HCl [Glucophage] 1,000 mg PO BID 05/29/18 [History] Isosorbide MONOnitrate (24 HR) [Imdur] 30 mg PO DAILY 06/23/18 [History] Saliva Stimulant [Biotene Moisturizing Rinse] 1 spray PO Q2H PRN #1 bottle 06/26 [Rx] DiphenhydraMINE [Benadryl] 25 mg PO BID PRN 07/17/18 [History] Polyethylene Glycol 3350 [MiraLAX] 17 gm PO DAILY PRN 07/17/18 [History] Furosemide [Lasix] 40 mg PO BID #60 tablet 07/21/18 [Rx] Darbepoetin [Aranesp] 40 mcg SQ QWEEK syringe 08/20/18 [Rx] Megestrol Acetate [Megace] 400 mg PO DAILY udc 08/20/18 [Rx] Metoprolol [Lopressor] 12.5 mg PO BID #60 tablet 08/20/18 [Rx] Omeprazole [PriLOSEC] 40 mg PO BIDAC #60 capsule.dr 08/20/18 [Rx] Sucralfate [Carafate] 1 gm PO QIDAC #2 bottle 08/20/18 [Rx] Allergies/Adverse Reactions: 3 Allergy/AdvReac Type Severity Reaction Status Date / Time diazepam [From Valium] Allergy Intermediate Unresponsiv Verified 08/15/18 12:53 e Penicillins Allergy Mild Hives Verified 08/15/18 12:53 adhesive tape Allergy Hives Verified 08/15/18 12:53 apixaban Allergy Anaphylaxis Verified 08/15/18 12:53 budesonide Allergy Anaphylaxis Verified 08/15/18 12:53 secobarbital Allergy Anaphylaxis Verified 08/15/18 12:53 albuterol AdvReac [place] Verified 08/15/18 12:53 Certification: Further, I certify that my clinical findings support that this patient is homebound (i.e. absences from home require considerable and taxing effort and are for medical reasons or christianity services or infrequently or short duration when for other reasons) because: Homebound Reason: Patient requires assistance of a person or device to safely leave home Attestation: My signature below is to certify that this patient is under my care and that I, or nurse practitioner, or a physician's training and development assistant working with me, has a face-to -face encounter with this patient.
[2018-08-20] MEDS ORDERED: Furosemide 40 MG TABLET PO SCH (17:00)
== END 2018-08-20 16:00 | disposition home health service (06) | DRG 377 ==
LOC: 2NNU 12:46 → EMEROOARM 12:46 → SUATTDRO 19:20 → 2NNU 20:27
PROVIDERS: ADMIT Internal Medicine; ATTEND Internal Medicine

== ENCOUNTER 2021-03-10 12:13 | Inpatient (IN) ==
[2021-03-10 12:58] LABS: Eosinophils % 2.9 %; Hemoglobin 6.6 g/dL (12.9-16.9); Mean Platelet Volume 10.1 fL (9.4-12.4)
[2021-03-10 12:59] LABS: Eosinophils # 0.2 K/mcL (0.0-0.6); Hematocrit 22.7 % (37.5-50.1); Immature Granulocytes % 0.2 % (0-4); Lymphocytes % 9.1 %; Mean Corpuscular HGB Conc 29.1 g/dL (31.6-35.5); Mean Corpuscular Hemoglobin 25.1 pg (28.0-33.3); Mean Corpuscular Volume 86.3 fL (83.0-100.0); Monocytes % 8.3 %; Platelet Count 151 K/mcL (140-400); Red Blood Count 2.63 M/mcL (4.19-5.50); Red Cell Distribution Width 14.5 % (11.5-14.5); Segmented Neutrophils % 79.1 %; White Blood Count 5.5 K/mcL (4.3-11.1)
[2021-03-10 13:00] LABS: Basophils % 0.4 %; Lymphocytes # 0.5 K/mcL (0.6-4.6); Monocytes # 0.5 K/mcL (0.0-1.3); Neutrophils # 4.4 K/mcL (1.6-8.9)
[2021-03-10 13:17] LABS: Calcium 9.2 mg/dL (8.6-10.3); Potassium 4.6 mEq/L (3.5-5.1)
[2021-03-10 13:19] LABS: Bilirubin,Urine Negative (Negative); Blood,Urine Negative (Negative); Clarity,Urine Turbid (Clear); Color,Urine Yellow (Yellow); Glucose,Urine (UA) 150 mg/dL (Normal); Hyaline Casts,Urine Few per lpf (None Seen); Ketones,Urine Negative (Negative); Leukocyte Esterase,Urine Large (Negative); Mucus,Urine Few per lpf (None-Few); Nitrite,Urine Negative (Negative); Protein,Urine Trace mg/dL (Neg-Trace); Specific Gravity,Urine 1.019 (1.010-1.025); Squamous Epithelial Cell,Urine Few per hpf (None-Few); Urobilinogen,Urine Normal (Normal); WBC,Urine TNTC per hpf (0-3)
[2021-03-10 13:37] LABS: Hypochromasia Present (Not Present); Platelet Estimate Normal (Normal)
[2021-03-10] MEDS ORDERED: Mag Hydrox/Al Hydrox/Simeth 30 ML UDC PO PRN (14:18)
[2021-03-10] MEDS ORDERED: Ondansetron ODT 4 MG TAB.RAPDIS SL PRN (14:18)
[2021-03-10] MEDS ORDERED: Melatonin 3 MG TABLET PO PRN (14:18)
[2021-03-10] MEDS ORDERED: Naloxone 0.4 MG/ML INJ IVP PRN (14:18)
[2021-03-10] MEDS ORDERED: MOM Conc 10 ML UD.LIQ PO PRN (14:18)
[2021-03-10] MEDS ORDERED: 0.9 % Sodium Chloride 250 ML ONE (14:27)
[2021-03-10] MEDS: 0.9 % Sodium Chloride 1,000 ML IVC SCH (16:08)
[2021-03-10] MEDS: Pantoprazole 40 MG VIAL IVP SCH (18:04)
[2021-03-11] MEDS: 0.9 % Sodium Chloride 1,000 ML IVC SCH (02:19)
[2021-03-11] MEDS: Pantoprazole 40 MG VIAL IVP SCH ×2 (05:40→17:32)
[2021-03-11 06:13] LABS: Hematocrit 27.9 % (37.5-50.1); Mean Corpuscular HGB Conc 29.7 g/dL (31.6-35.5); Mean Corpuscular Hemoglobin 25.9 pg (28.0-33.3); Mean Corpuscular Volume 86.9 fL (83.0-100.0); Mean Platelet Volume 10.1 fL (9.4-12.4); Platelet Count 145 K/mcL (140-400); Red Blood Count 3.21 M/mcL (4.19-5.50); Red Cell Distribution Width 14.4 % (11.5-14.5); White Blood Count 5.9 K/mcL (4.3-11.1)
[2021-03-11 06:14] LABS: Hemoglobin 8.3 g/dL (12.9-16.9)
[2021-03-11 06:35] LABS: Alanine Aminotransferase 6 Units/L (7-52); Albumin 3.8 g/dL (3.5-5.7); Albumin/Globulin Ratio 1.5 (1.1-2.2); Alkaline Phosphatase 59 Units/L (34-104); Aspartate Amino Transferase 9 Units/L (13-39); BUN/Creatinine Ratio 25 (6-26); Bilirubin,Total 0.8 mg/dL (0.3-1.0); Blood Urea Nitrogen 28 mg/dL (8-23); Calcium 8.9 mg/dL (8.6-10.3); Carbon Dioxide 25 mEq/L (23-29); Chloride 99 mEq/L (98-107); Globulin 2.6 g/dL (2.4-3.5); Glucose 291 mg/dL (70-105); Osmolality,Calculated 290 (280-300); Potassium 4.3 mEq/L (3.5-5.1); Sodium 132 mEq/L (136-145); Total Protein 6.4 g/dL (6.4-8.9); eGFR For African Americans > 60 (> 60); eGFR For Non-African Americans > 60 (> 60)
[2021-03-11] MEDS: Isosorbide MONOnitrate (24 HR) 60 MG TAB.ER.24H PO SCH (08:22)
[2021-03-11] MEDS: *HR* Digoxin 0.125 MG TABLET PO SCH (14:17)
[2021-03-11 17:23] LABS: Adenovirus Not Detected (Not Detect); Bordetella Pertussis Not Detected (Not Detect); Chlamydophila pneumoniae Not Detected (Not Detect); Coronavirus 229E Not Detected (Not Detect); Coronavirus HKU1 Not Detected (Not Detect); Coronavirus NL63 Not Detected (Not Detect); Coronavirus OC43 Not Detected (Not Detect); Human Metapneumovirus Not Detected (Not Detect); Human Rhinovirus/Enterovirus Not Detected (Not Detect); Influenza A Subtype 2009 H1 Not Detected (Not Detect); Influenza B Not Detected (Not Detect); Mycoplasma pneumoniae Not Detected (Not Detect); Parainfluenza Virus 1 Not Detected (Not Detect); Parainfluenza Virus 2 Not Detected (Not Detect); Parainfluenza Virus 3 Not Detected (Not Detect); Parainfluenza Virus 4 Not Detected (Not Detect); Respiratory Syncytial Virus Not Detected (Not Detect); SARS-CoV-2 Not Detected (Not Detect)
[2021-03-12 03:49] LABS: Hematocrit 27.5 % (37.5-50.1); Hemoglobin 8.2 g/dL (12.9-16.9); Mean Corpuscular HGB Conc 29.8 g/dL (31.6-35.5); Mean Corpuscular Hemoglobin 25.5 pg (28.0-33.3); Mean Corpuscular Volume 85.4 fL (83.0-100.0); Mean Platelet Volume 10.2 fL (9.4-12.4); Platelet Count 150 K/mcL (140-400); Red Blood Count 3.22 M/mcL (4.19-5.50); Red Cell Distribution Width 14.4 % (11.5-14.5); White Blood Count 5.2 K/mcL (4.3-11.1)
[2021-03-12 04:06] LABS: Alanine Aminotransferase 7 Units/L (7-52); Albumin 3.8 g/dL (3.5-5.7); Albumin/Globulin Ratio 1.4 (1.1-2.2); Alkaline Phosphatase 65 Units/L (34-104); Aspartate Amino Transferase 9 Units/L (13-39); BUN/Creatinine Ratio 19 (6-26); Bilirubin,Total 0.7 mg/dL (0.3-1.0); Blood Urea Nitrogen 22 mg/dL (8-23); Calcium 9.1 mg/dL (8.6-10.3); Carbon Dioxide 26 mEq/L (23-29); Chloride 97 mEq/L (98-107); Globulin 2.7 g/dL (2.4-3.5); Glucose 344 mg/dL (70-105); Osmolality,Calculated 291 (280-300); Potassium 4.3 mEq/L (3.5-5.1); Sodium 132 mEq/L (136-145); Total Protein 6.5 g/dL (6.4-8.9); eGFR For African Americans > 60 (> 60); eGFR For Non-African Americans > 60 (> 60)
[2021-03-12] MEDS: Pantoprazole 40 MG VIAL IVP SCH ×2 (06:29→17:57)
[2021-03-12] MEDS: *HR* Digoxin 0.125 MG TABLET PO SCH (07:23)
[2021-03-12] MEDS: Isosorbide MONOnitrate (24 HR) 60 MG TAB.ER.24H PO SCH (07:23)
[2021-03-13 02:32] LABS: Hematocrit 29.1 % (37.5-50.1); Hemoglobin 8.9 g/dL (12.9-16.9); Mean Corpuscular HGB Conc 30.6 g/dL (31.6-35.5); Mean Corpuscular Hemoglobin 25.9 pg (28.0-33.3); Mean Corpuscular Volume 84.8 fL (83.0-100.0); Platelet Count 169 K/mcL (140-400); Red Blood Count 3.43 M/mcL (4.19-5.50); Red Cell Distribution Width 14.7 % (11.5-14.5); White Blood Count 6.4 K/mcL (4.3-11.1)
[2021-03-13 02:53] LABS: Alanine Aminotransferase 7 Units/L (7-52); Albumin/Globulin Ratio 1.4 (1.1-2.2); Alkaline Phosphatase 70 Units/L (34-104); Aspartate Amino Transferase 10 Units/L (13-39); BUN/Creatinine Ratio 19 (6-26); Bilirubin,Total 0.8 mg/dL (0.3-1.0); Blood Urea Nitrogen 24 mg/dL (8-23); Calcium 9.3 mg/dL (8.6-10.3); Carbon Dioxide 26 mEq/L (23-29); Chloride 96 mEq/L (98-107); Globulin 2.8 g/dL (2.4-3.5); Glucose 329 mg/dL (70-105); Osmolality,Calculated 289 (280-300); Potassium 4.4 mEq/L (3.5-5.1); Sodium 131 mEq/L (136-145); Total Protein 6.8 g/dL (6.4-8.9); eGFR For African Americans > 60 (> 60); eGFR For Non-African Americans 54 (> 60)
[2021-03-13] MEDS: Pantoprazole 40 MG VIAL IVP SCH (05:55)
[2021-03-13] MEDS ORDERED: D5% in Water 1,000 ML IVC PRN (07:54)
[2021-03-13] MEDS ORDERED: Dextrose Gel 15 GM/37.5 ML TUBE PO PRN ×2 (07:54)
[2021-03-13] MEDS ORDERED: *HR* Dextrose 50 % in Water (Vial) 50 ML VIAL IVP PRN (07:54)
[2021-03-13] MEDS: Isosorbide MONOnitrate (24 HR) 60 MG TAB.ER.24H PO SCH (07:57)
[2021-03-13] MEDS: *HR* Digoxin 0.125 MG TABLET PO SCH (07:57)
[2021-03-13] MEDS ORDERED: Insulin LISPRO 300 UNITS/3 ML VIAL SUBQ SCH ×2 (11:30→21:00)
[2021-03-13 13:46] VITALS: BP 126/64
[2021-03-13] MEDS ORDERED: Lidocaine -MPF 2% 5 ML VIAL SQ ONE (16:23)
[2021-03-13] MEDS ORDERED: *HR* Propofol 200 MG/20 ML VIAL IVP ONE (16:23)
[2021-03-14 06:56] LABS: Estimated Average Glucose 183 mg/dl
== END 2021-03-13 16:24 | disposition home or self-care (01) | DRG 812 ==
LOC: 3BNU 12:13 → EMEROOARM 12:13 → 3BNU 14:55 → SUATTDRO 15:15
PROVIDERS: ADMIT Internal Medicine; ATTEND Registered Nurse

== ENCOUNTER 2021-04-07 22:17 | Observation (INO) ==
[2021-04-07 23:10] LABS: Basophils % 0.3 %; Eosinophils # 0.2 K/mcL (0.0-0.6); Eosinophils % 2.7 %; Hematocrit 22.6 % (37.5-50.1); Hemoglobin 6.8 g/dL (12.9-16.9); Immature Granulocytes % 0.2 % (0-4); Lymphocytes # 0.8 K/mcL (0.6-4.6); Mean Corpuscular HGB Conc 30.1 g/dL (31.6-35.5); Mean Corpuscular Hemoglobin 24.5 pg (28.0-33.3); Mean Corpuscular Volume 81.6 fL (83.0-100.0); Mean Platelet Volume 9.5 fL (9.4-12.4); Monocytes # 0.6 K/mcL (0.0-1.3); Monocytes % 8.9 %; Neutrophils # 4.9 K/mcL (1.6-8.9); Platelet Count 140 K/mcL (140-400); Red Blood Count 2.77 M/mcL (4.19-5.50); Red Cell Distribution Width 15.2 % (11.5-14.5); Segmented Neutrophils % 75.9 %; White Blood Count 6.4 K/mcL (4.3-11.1)
[2021-04-07] MEDS ORDERED: Isovue-370 500 ML BOTTLE IVP ONE (23:13)
[2021-04-07 23:31] LABS: BUN/Creatinine Ratio 22 (6-26); Blood Urea Nitrogen 26 mg/dL (8-23); Calcium 9.3 mg/dL (8.6-10.3); Carbon Dioxide 28 mEq/L (23-29); Chloride 97 mEq/L (98-107); Glucose 201 mg/dL (70-105); Osmolality,Calculated 288 (280-300); Potassium 3.9 mEq/L (3.5-5.1); Sodium 134 mEq/L (136-145); eGFR For African Americans > 60 (> 60); eGFR For Non-African Americans 59 (> 60)
[2021-04-07 23:44] LABS: Troponin I 0.04 ng/mL (< 0.04)
[2021-04-08] MEDS ORDERED: 0.9 % Sodium Chloride 1,000 ML ONE (01:09)
[2021-04-08] MEDS ORDERED: 0.9 % Sodium Chloride 500 ML ONE (01:09)
[2021-04-08] MEDS ORDERED: 0.9 % Sodium Chloride 1,000 ML IVC ONE ×2 (01:15→01:21)
[2021-04-08] MEDS ORDERED: Melatonin 3 MG TABLET PO PRN (02:13)
[2021-04-08] MEDS ORDERED: Naloxone 0.4 MG/ML INJ IVP PRN (02:13)
[2021-04-08] MEDS ORDERED: Ondansetron ODT 4 MG TAB.RAPDIS SL PRN (02:13)
[2021-04-08] MEDS ORDERED: Dextrose Gel 15 GM/37.5 ML TUBE PO PRN ×2 (05:12)
[2021-04-08] MEDS ORDERED: D5% in Water 1,000 ML IVC PRN (05:12)
[2021-04-08] MEDS ORDERED: *HR* Dextrose 50 % in Water (Vial) 50 ML VIAL IVP PRN (05:12)
[2021-04-08] MEDS: Insulin LISPRO 300 UNITS/3 ML VIAL SUBQ SCH ×2 (05:50→12:15)
[2021-04-08 06:07] LABS: Hematocrit 22.7 % (37.5-50.1); Hemoglobin 7.2 g/dL (12.9-16.9); Mean Corpuscular HGB Conc 31.7 g/dL (31.6-35.5); Mean Corpuscular Hemoglobin 25.6 pg (28.0-33.3); Mean Corpuscular Volume 80.8 fL (83.0-100.0); Mean Platelet Volume 9.7 fL (9.4-12.4); Platelet Count 128 K/mcL (140-400); Red Blood Count 2.81 M/mcL (4.19-5.50); Red Cell Distribution Width 14.9 % (11.5-14.5); White Blood Count 5.6 K/mcL (4.3-11.1)
[2021-04-08 06:29] LABS: Alanine Aminotransferase 7 Units/L (7-52); Albumin 3.6 g/dL (3.5-5.7); Albumin/Globulin Ratio 1.7 (1.1-2.2); Alkaline Phosphatase 55 Units/L (34-104); Aspartate Amino Transferase 9 Units/L (13-39); BUN/Creatinine Ratio 22 (6-26); Bilirubin,Total 1.1 mg/dL (0.3-1.0); Blood Urea Nitrogen 23 mg/dL (8-23); Calcium 8.7 mg/dL (8.6-10.3); Carbon Dioxide 27 mEq/L (23-29); Chloride 100 mEq/L (98-107); Globulin 2.1 g/dL (2.4-3.5); Glucose 250 mg/dL (70-105); Magnesium 1.4 mg/dL (1.6-2.6); Osmolality,Calculated 290 (280-300); Phosphorous 1.7 mg/dL (2.7-4.5); Sodium 134 mEq/L (136-145); Total Protein 5.7 g/dL (6.4-8.9); eGFR For African Americans > 60 (> 60); eGFR For Non-African Americans > 60 (> 60)
[2021-04-08] MEDS ORDERED: 0.9 % Sodium Chloride 250 ML IVC SCH (07:30)
[2021-04-08] MEDS: Pantoprazole 40 MG VIAL IVP SCH ×2 (08:20→18:19)
[2021-04-08] MEDS: cefTRIAXone 1,000 MG in Water for inj. (sterile) 10 ML IVP SCH (08:20)
[2021-04-08 13:39] LABS: Basophils % 0.5 %; Eosinophils # 0.2 K/mcL (0.0-0.6); Eosinophils % 3.1 %; Hematocrit 23.7 % (37.5-50.1); Hemoglobin 7.2 g/dL (12.9-16.9); Immature Granulocytes % 0.2 % (0-4); Lymphocytes # 0.6 K/mcL (0.6-4.6); Lymphocytes % 9.9 %; Mean Corpuscular HGB Conc 30.4 g/dL (31.6-35.5); Mean Corpuscular Hemoglobin 24.9 pg (28.0-33.3); Mean Platelet Volume 10.4 fL (9.4-12.4); Monocytes # 0.6 K/mcL (0.0-1.3); Monocytes % 10.3 %; Neutrophils # 4.4 K/mcL (1.6-8.9); Platelet Count 134 K/mcL (140-400); Red Blood Count 2.89 M/mcL (4.19-5.50); White Blood Count 5.8 K/mcL (4.3-11.1)
[2021-04-09 02:17] LABS: Basophils % 0.5 %; Eosinophils # 0.2 K/mcL (0.0-0.6); Eosinophils % 3.7 %; Hematocrit 27.5 % (37.5-50.1); Hemoglobin 8.5 g/dL (12.9-16.9); Immature Granulocytes % 0.3 % (0-4); Lymphocytes # 0.7 K/mcL (0.6-4.6); Lymphocytes % 11.1 %; Mean Corpuscular HGB Conc 30.9 g/dL (31.6-35.5); Mean Corpuscular Hemoglobin 25.2 pg (28.0-33.3); Mean Corpuscular Volume 81.6 fL (83.0-100.0); Mean Platelet Volume 9.6 fL (9.4-12.4); Monocytes # 0.6 K/mcL (0.0-1.3); Neutrophils # 4.4 K/mcL (1.6-8.9); Platelet Count 135 K/mcL (140-400); Red Blood Count 3.37 M/mcL (4.19-5.50); Red Cell Distribution Width 15.2 % (11.5-14.5); Segmented Neutrophils % 74.4 %; White Blood Count 5.9 K/mcL (4.3-11.1)
[2021-04-09 02:39] LABS: BUN/Creatinine Ratio 19 (6-26); Blood Urea Nitrogen 20 mg/dL (8-23); Calcium 9.6 mg/dL (8.6-10.3); Carbon Dioxide 27 mEq/L (23-29); Chloride 99 mEq/L (98-107); Glucose 291 mg/dL (70-105); Osmolality,Calculated 291 (280-300); Potassium 4.4 mEq/L (3.5-5.1); Sodium 134 mEq/L (136-145); eGFR For African Americans > 60 (> 60); eGFR For Non-African Americans > 60 (> 60)
[2021-04-09 03:09] LABS: Bilirubin,Urine Negative (Negative); Blood,Urine Negative (Negative); Clarity,Urine Clear (Clear); Color,Urine Colorless (Yellow); Glucose,Urine (UA) 500 mg/dL (Normal); Ketones,Urine Negative (Negative); Leukocyte Esterase,Urine Small (Negative); Mucus,Urine Few per lpf (None-Few); Nitrite,Urine Negative (Negative); PH,Urine 7.5 pH Units (5.0-8.0); Protein,Urine Negative (Neg-Trace); RBC,Urine 0-3 per hpf (0-3); Specific Gravity,Urine 1.013 (1.010-1.025); Urobilinogen,Urine Normal (Normal)
[2021-04-09] MEDS: Pantoprazole 40 MG VIAL IVP SCH ×2 (05:05→17:02)
[2021-04-09 06:27] LABS: Adenovirus Not Detected (Not Detect); Bordetella Pertussis Not Detected (Not Detect); Chlamydophila pneumoniae Not Detected (Not Detect); Coronavirus 229E Not Detected (Not Detect); Coronavirus HKU1 Not Detected (Not Detect); Coronavirus NL63 Not Detected (Not Detect); Coronavirus OC43 Not Detected (Not Detect); Human Metapneumovirus Not Detected (Not Detect); Human Rhinovirus/Enterovirus Not Detected (Not Detect); Influenza A Subtype 2009 H1 Not Detected (Not Detect); Influenza B Not Detected (Not Detect); Mycoplasma pneumoniae Not Detected (Not Detect); Parainfluenza Virus 1 Not Detected (Not Detect); Parainfluenza Virus 2 Not Detected (Not Detect); Parainfluenza Virus 3 Not Detected (Not Detect); Parainfluenza Virus 4 Not Detected (Not Detect); Respiratory Syncytial Virus Not Detected (Not Detect); SARS-CoV-2 Not Detected (Not Detect)
[2021-04-09] MEDS: cefTRIAXone 1,000 MG in Water for inj. (sterile) 10 ML IVP SCH (08:17)
[2021-04-09] MEDS ORDERED: Lidocaine -MPF 2% 2 ML VIAL ONE (10:24)
[2021-04-09] MEDS ORDERED: D5% in Water 1,000 ML IVC PRN (19:32)
[2021-04-09] MEDS ORDERED: *HR* Dextrose 50 % in Water (Vial) 50 ML VIAL IVP PRN (19:32)
[2021-04-09] MEDS ORDERED: Dextrose Gel 15 GM/37.5 ML TUBE PO PRN ×2 (19:32)
[2021-04-09] MEDS ORDERED: Insulin LISPRO 300 UNITS/3 ML VIAL SUBQ SCH (21:00)
[2021-04-10 05:27] LABS: Basophils % 0.7 %; Eosinophils # 0.4 K/mcL (0.0-0.6); Eosinophils % 6.2 %; Hematocrit 27.5 % (37.5-50.1); Hemoglobin 8.2 g/dL (12.9-16.9); Immature Granulocytes % 0.2 % (0-4); Lymphocytes # 0.5 K/mcL (0.6-4.6); Lymphocytes % 9.3 %; Mean Corpuscular HGB Conc 29.8 g/dL (31.6-35.5); Mean Corpuscular Hemoglobin 24.4 pg (28.0-33.3); Mean Corpuscular Volume 81.8 fL (83.0-100.0); Mean Platelet Volume 9.8 fL (9.4-12.4); Monocytes # 0.5 K/mcL (0.0-1.3); Monocytes % 9.1 %; Neutrophils # 4.2 K/mcL (1.6-8.9); Platelet Count 126 K/mcL (140-400); Red Blood Count 3.36 M/mcL (4.19-5.50); Red Cell Distribution Width 15.2 % (11.5-14.5); Segmented Neutrophils % 74.5 %; White Blood Count 5.6 K/mcL (4.3-11.1)
[2021-04-10] MEDS: Pantoprazole 40 MG VIAL IVP SCH (06:26)
[2021-04-10] MEDS: cefTRIAXone 1,000 MG in Water for inj. (sterile) 10 ML IVP SCH (08:47)
[2021-04-10] MEDS: Insulin LISPRO 300 UNITS/3 ML VIAL SUBQ SCH ×2 (08:48→12:36)
[2021-04-10 10:35] VITALS: BP 138/69
== END 2021-04-10 13:53 | disposition home or self-care (01) ==
LOC: 3NENU 22:17 → EMEROOARM 22:17 → 3NENU 04-08 02:04
PROVIDERS: ADMIT Internal Medicine; ATTEND Internal Medicine

== ENCOUNTER 2021-09-21 06:03 | Inpatient (IN) ==
[2021-09-21] MEDS ORDERED: CeFAZolin Syr 2,000MG/20 ML 2,000 MG/20 ML SYRINGE IVPB ONE (06:14)
[2021-09-21] MEDS ORDERED: Protamine Sulfate 50 MG/5 ML VIAL IVP ONE (06:38)
[2021-09-21] MEDS ORDERED: Bupivacaine-MPF 0.25% 10 ML VIAL ONE (06:39)
[2021-09-21] MEDS ORDERED: Heparin 1,000 UNITS/500 mL 1,000 ML ONE (06:39)
[2021-09-21] MEDS ORDERED: Vancomycin 1,250 MG/262.5 ML IV.SOLN IVPB ONE (07:00)
[2021-09-21] MEDS ORDERED: NiCARdipine 2.5 MG/10 ML Syringe IVPB ONE (07:02)
[2021-09-21] MEDS ORDERED: *HR* Vasopressin 20 UNIT/ML VIAL ONE (07:02)
[2021-09-21] MEDS ORDERED: *HR* Norepinephrine 4 MG/4 ML VIAL IVC ONE (07:02)
[2021-09-21] MEDS ORDERED: *HR* Propofol 200 MG/20 ML VIAL IVP ONE (07:19)
[2021-09-21] MEDS ORDERED: *HR* FentaNYL (PF) 100 MCG/2 ML VIAL ONE ×2 (07:19→11:57)
[2021-09-21] MEDS ORDERED: Lidocaine -MPF 2% 5 ML VIAL ONE (07:21)
[2021-09-21] MEDS ORDERED: *HR* Rocuronium Bromide 50 MG/5 ML VIAL ONE (07:21)
[2021-09-21] MEDS ORDERED: Ondansetron 4 MG/2 ML VIAL ONE (07:21)
[2021-09-21] MEDS ORDERED: *HR* Succinylcholine 200 MG/10 ML VIAL IVP ONE (07:21)
[2021-09-21] MEDS ORDERED: Acetaminophen IV 1,000 MG/100 ML BAG IVPB ONE (07:26)
[2021-09-21] MEDS ORDERED: *HR* OxyCODONE Immed Rel 5 MG TABLET PO PRN ×2 (07:26→13:44)
[2021-09-21] MEDS ORDERED: *HR* HYDROmorphone (PF) 1 MG/ML SYRINGE IVP PRN (07:26)
[2021-09-21] MEDS ORDERED: *HR* HYDROmorphone 2 MG TABLET PO PRN (07:26)
[2021-09-21] MEDS ORDERED: *HR* Labetalol 20 MG/4 ML SYRINGE IVP PRN ×2 (07:26→13:44)
[2021-09-21] MEDS ORDERED: Famotidine 20 MG/2 ML VIAL IVP ONE (07:26)
[2021-09-21] MEDS ORDERED: Vancomycin 1,000 MG, Sodium Chloride IRRigation 1,000 ML IR ONE (07:45)
[2021-09-21] MEDS: Ringers Solution, Lactated 1,000 ML IVC SCH ×2 (07:46→11:15)
[2021-09-21] MEDS ORDERED: EPHEDrine 50 MG/ML VIAL ONE (08:07)
[2021-09-21 08:48] LABS: ABG Base Excess 0 mEq/L (-2 to 3); ABG Chloride 101 mEq/L (98-107); ABG Glucose 201 mg/dL (60-95); ABG HCO3 25 mEq/L (21-27); ABG Ionized Calcium 1.19 mmol/L (1.15-1.35); ABG Oxygen Saturation 100 % (95-98); ABG PCO2 42 mmHg (35-45); ABG PO2 268 mmHg (85-104); ABG TCO2 27 mEq/L (20-26)
[2021-09-21] MEDS ORDERED: *HR* Heparin 5,000 UNIT/ML VIAL ONE (10:05)
[2021-09-21] MEDS ORDERED: Insulin Regular, Human 100 UNIT/ML ONE (10:51)
[2021-09-21] MEDS ORDERED: Sugammadex Sodium 200 MG/2 ML VIAL IV ONE (11:23)
[2021-09-21] MEDS ORDERED: Levalbuterol Neb 1.25 MG/3 ML IH PRN (13:44)
[2021-09-21] MEDS ORDERED: Hydrocortisone 1% OINT 28 GM TUBE TP PRN (13:44)
[2021-09-21] MEDS ORDERED: 0.9 % Sodium Chloride 1,000 ML IVC SCH (13:44)
[2021-09-21] MEDS ORDERED: Acetaminophen 325 MG TABLET PO PRN (13:44)
[2021-09-21] MEDS ORDERED: *HR* HYDROcodone/Acet 5/325 mg TABLET PO PRN (13:44)
[2021-09-21] MEDS ORDERED: D5% in Water 1,000 ML IVC PRN (13:44)
[2021-09-21] MEDS ORDERED: Naloxone 0.4 MG/ML INJ IVP PRN (13:44)
[2021-09-21] MEDS ORDERED: *HR* Dextrose 50 % in Water (Syg) 50 ML SYRINGE IVP PRN (13:44)
[2021-09-21] MEDS ORDERED: Dextrose Gel 15 GM/37.5 ML TUBE PO PRN ×2 (13:44)
[2021-09-21] MEDS: CeFAZolin 2 GM/120 ML BAG IVPB SCH (15:12)
[2021-09-21] MEDS: *HR* Metoprolol 5 MG/5 ML VIAL IVP SCH (16:07)
[2021-09-21] MEDS: Insulin LISPRO 300 UNITS/3 ML VIAL SUBQ SCH (17:46)
[2021-09-21] MEDS: Artificial Tears SOLN 15 ML BOTTLE BOTH EYES SCH (20:13)
[2021-09-21] MEDS ORDERED: Insulin LISPRO 300 UNITS/3 ML VIAL SUBQ SCH (21:00)
[2021-09-22] MEDS: *HR* Metoprolol 5 MG/5 ML VIAL IVP SCH ×2 (00:35→05:18)
[2021-09-22] MEDS: CeFAZolin 2 GM/120 ML BAG IVPB SCH (00:36)
[2021-09-22 00:37] VITALS: O2SAT 97
[2021-09-22 03:18] VITALS: TEMP 97.9
[2021-09-22 04:20] LABS: Basophils % 0.3 %; Eosinophils % 0.4 %; Hematocrit 33.1 % (37.5-50.1); Hemoglobin 10.7 g/dL (12.9-16.9); Immature Granulocytes % 0.1 % (0-4); Lymphocytes # 0.4 K/mcL (0.6-4.6); Lymphocytes % 6.3 %; Mean Corpuscular HGB Conc 32.3 g/dL (31.6-35.5); Mean Corpuscular Hemoglobin 28.7 pg (28.0-33.3); Mean Corpuscular Volume 88.7 fL (83.0-100.0); Mean Platelet Volume 9.9 fL (9.4-12.4); Monocytes # 0.6 K/mcL (0.0-1.3); Monocytes % 7.8 %; Platelet Count 101 K/mcL (140-400); Red Blood Count 3.73 M/mcL (4.19-5.50); Red Cell Distribution Width 14.6 % (11.5-14.5); Segmented Neutrophils % 85.1 %
[2021-09-22 04:42] LABS: BUN/Creatinine Ratio 19 (6-26); Blood Urea Nitrogen 22 mg/dL (8-23); Calcium 9.2 mg/dL (8.6-10.3); Carbon Dioxide 28 mEq/L (23-29); Chloride 101 mEq/L (98-107); Glucose 203 mg/dL (70-105); Osmolality,Calculated 293 (280-300); Potassium 4.5 mEq/L (3.5-5.1); Sodium 137 mEq/L (136-145); eGFR For African Americans > 60 (> 60); eGFR For Non-African Americans > 60 (> 60)
[2021-09-22] MEDS ORDERED: *HR* Heparin 5,000 UNIT/ML VIAL SQ SCH ×2 (06:00)
[2021-09-22] MEDS: Insulin LISPRO 300 UNITS/3 ML VIAL SUBQ SCH (08:46)
[2021-09-22] MEDS: Artificial Tears SOLN 15 ML BOTTLE BOTH EYES SCH (08:50)
[2021-09-22] MEDS ORDERED: *HR* Digoxin 0.125 MG TABLET PO SCH (09:00)
[2021-09-22] MEDS ORDERED: Cholecalciferol (D-3) 1,000 UNIT (25MCG) TABLET PO SCH (09:00)
[2021-09-22] MEDS ORDERED: Magnesium Oxide 400 MG TABLET PO SCH (09:00)
[2021-09-22] MEDS ORDERED: Aspirin Enteric Coated 81 MG Tablet PO SCH (09:00)
[2021-09-22] MEDS ORDERED: Isosorbide MONOnitrate (24 HR) 30 MG TAB.ER.24H PO SCH (09:00)
[2021-09-22] MEDS ORDERED: Spironolactone 25 MG TABLET PO SCH (09:00)
[2021-09-22] MEDS ORDERED: metOLazone 2.5 MG TABLET PO SCH (09:00)
[2021-09-22] MEDS ORDERED: Furosemide 20 MG TABLET PO SCH (09:00)
[2021-09-22 11:20] VITALS: BP 124/58; PULSE 76
== END 2021-09-22 11:55 | disposition home or self-care (01) | DRG 254 ==
LOC: SAMDAY 06:03 → 2NNU 13:42
PROVIDERS: ADMIT Surgery; ATTEND Surgery

== ENCOUNTER 2022-05-01 08:52 | Inpatient (IN) ==
[2022-05-01] MEDS ORDERED: Acetaminophen IV 1,000 MG/100 ML BAG IVPB ONE (09:55)
[2022-05-01] MEDS ORDERED: *HR* Labetalol 20 MG/4 ML SYRINGE IVP PRN (09:55)
[2022-05-01] MEDS ORDERED: Ketorolac 30 MG/ML VIAL IVP PRN (09:55)
[2022-05-01] MEDS ORDERED: *HR* OxyCODONE Immed Rel 5 MG TABLET PO PRN (09:55)
[2022-05-01] MEDS ORDERED: *HR* HYDROmorphone (PF) 1 MG/ML SYRINGE IVP PRN (09:55)
[2022-05-01] MEDS ORDERED: Famotidine 20 MG/2 ML VIAL IVP ONE (09:55)
[2022-05-01] MEDS ORDERED: Promethazine 6.25 MG in Water for inj. (sterile) 20 ML IVPB PRN (09:56)
[2022-05-01] MEDS ORDERED: Lidocaine HCL 4 ML Topical Solution (Laryng-O-Jet Kit Sterile Pak) TP ONE (09:58)
[2022-05-01] MEDS ORDERED: *HR* Succinylcholine 200 MG/10 ML VIAL IVP ONE (09:58)
[2022-05-01] MEDS ORDERED: *HR* FentaNYL (PF) 100 MCG/2 ML VIAL ONE (09:58)
[2022-05-01] MEDS ORDERED: *HR* Rocuronium Bromide 50 MG/5 ML VIAL ONE ×3 (09:58→16:38)
[2022-05-01] MEDS ORDERED: *HR* Propofol 200 MG/20 ML VIAL IVP ONE (09:58)
[2022-05-01] MEDS ORDERED: Ondansetron 4 MG/2 ML VIAL ONE (09:58)
[2022-05-01] MEDS ORDERED: Lidocaine -MPF 2% 2 ML VIAL ONE (09:58)
[2022-05-01] MEDS ORDERED: *HR* Heparin 5,000 UNIT/ML VIAL ONE (09:59)
[2022-05-01] MEDS ORDERED: Vancomycin 1,250 MG/262.5 ML IV.SOLN IVPB ONE (10:00)
[2022-05-01] MEDS: Ringers Solution, Lactated 1,000 ML IVC SCH (10:39)
[2022-05-01] MEDS ORDERED: Heparin 1,000 UNITS/500 mL 500 ML ONE ×3 (10:44→12:33)
[2022-05-01] MEDS ORDERED: Vancomycin 1,000 MG, Sodium Chloride IRRigation 1,000 ML IR ONE (11:00)
[2022-05-01] MEDS ORDERED: CeFAZolin Syr 2,000MG/20 ML 2,000 MG/20 ML SYRINGE IVPB ONE (11:08)
[2022-05-01] MEDS ORDERED: Bupivacaine-MPF 0.25% 10 ML VIAL ONE ×2 (11:18→12:33)
[2022-05-01] MEDS ORDERED: NiCARdipine 2.5 MG/10 ML Syringe IVPB ONE (11:53)
[2022-05-01] MEDS ORDERED: Vancomycin 1,000 MG VIAL ONE (12:33)
[2022-05-01] MEDS ORDERED: *HR* Magnesium Sulfate 1 GM/2 ML VIAL ONE (14:32)
[2022-05-01] MEDS ORDERED: *HR* HYDROMORPHONE 2 MG/ML VIAL ONE (15:34)
[2022-05-01] MEDS ORDERED: *HR* Phenylephrine 10 MG/ML VIAL ONE (15:48)
[2022-05-01 17:16] LABS: ABG Base Excess -2 mEq/L (-2 to 3); ABG Chloride 109 mEq/L (98-107); ABG Glucose 156 mg/dL (60-95); ABG HCO3 23 mEq/L (21-27); ABG Ionized Calcium 1.15 mmol/L (1.15-1.35); ABG Oxygen Saturation 100 % (95-98); ABG PCO2 36 mmHg (35-45); ABG PH 7.42 pH Units (7.32-7.45); ABG PO2 245 mmHg (85-104); ABG TCO2 24 mEq/L (20-26)
[2022-05-01 17:17] LABS: Hematocrit 27.6 % (37.5-50.1); Mean Corpuscular HGB Conc 32.6 g/dL (31.6-35.5); Mean Platelet Volume 9.6 fL (9.4-12.4); Platelet Count 133 K/mcL (140-400); Red Cell Distribution Width 15.1 % (11.5-14.5); White Blood Count 8.9 K/mcL (4.3-11.1)
[2022-05-01 17:28] LABS: INR 1.1; Prothrombin Time 12.7 Seconds (9.4-12.1)
[2022-05-01] MEDS ORDERED: Albumin Human 5% 12.5 GM/250 ML IV.SOLN ONE (17:36)
[2022-05-01 17:39] LABS: BUN/Creatinine Ratio 24 (6-26); Blood Urea Nitrogen 23 mg/dL (8-23); Calcium 8.5 mg/dL (8.6-10.3); Carbon Dioxide 23 mEq/L (23-29); Chloride 109 mEq/L (98-107); Glucose 178 mg/dL (70-105); Osmolality,Calculated 296 (280-300); Potassium 4.7 mEq/L (3.5-5.1); Sodium 139 mEq/L (136-145); eGFR For African Americans > 60 (> 60); eGFR For Non-African Americans > 60 (> 60)
[2022-05-01] MEDS ORDERED: EPHEDrine 50 MG/ML VIAL ONE (18:15)
[2022-05-01 19:14] LABS: Basophils % 0.2 %; Hemoglobin 8.8 g/dL (12.9-16.9); Immature Granulocytes % 0.4 % (0-4)
[2022-05-01 19:16] LABS: Eosinophils % 0.5 %; Hematocrit 26.4 % (37.5-50.1); Immature Platelets 1.6 % (1.1-6.1); Lymphocytes # 0.6 K/mcL (0.6-4.6); Lymphocytes % 7.3 %; Mean Corpuscular HGB Conc 33.3 g/dL (31.6-35.5); Mean Corpuscular Hemoglobin 29.9 pg (28.0-33.3); Mean Corpuscular Volume 89.8 fL (83.0-100.0); Mean Platelet Volume 9.5 fL (9.4-12.4); Monocytes # 0.3 K/mcL (0.0-1.3); Monocytes % 3.7 %; Neutrophils # 7.3 K/mcL (1.6-8.9); Red Blood Count 2.94 M/mcL (4.19-5.50); Red Cell Distribution Width 14.4 % (11.5-14.5); Segmented Neutrophils % 87.9 %; White Blood Count 8.3 K/mcL (4.3-11.1)
[2022-05-01 19:20] LABS: Platelet Count 101 K/mcL (140-400)
[2022-05-01] MEDS ORDERED: Phenylephrine 20 MG in 0.9 % Sodium Chloride 250 ML IVC SCH (20:15)
[2022-05-01 21:08] LABS: Hematocrit 25.7 % (37.5-50.1); Hemoglobin 8.4 g/dL (12.9-16.9); Immature Granulocytes % 0.3 % (0-4); Immature Platelets 1.3 % (1.1-6.1); Lymphocytes % 3.5 %; Mean Corpuscular HGB Conc 32.7 g/dL (31.6-35.5); Mean Corpuscular Volume 91.8 fL (83.0-100.0); Mean Platelet Volume 9.5 fL (9.4-12.4); Monocytes % 5.3 %; Red Cell Distribution Width 14.1 % (11.5-14.5); Segmented Neutrophils % 90.5 %; White Blood Count 6.6 K/mcL (4.3-11.1)
[2022-05-01 21:09] LABS: Basophils % 0.2 %; Eosinophils % 0.2 %; Lymphocytes # 0.2 K/mcL (0.6-4.6); Monocytes # 0.4 K/mcL (0.0-1.3)
[2022-05-01 21:10] LABS: Platelet Count 62 K/mcL (140-400)
[2022-05-01] MEDS: *HR* Heparin 5,000 UNIT/ML VIAL SQ SCH (22:45)
[2022-05-02] MEDS: *HR* Heparin 5,000 UNIT/ML VIAL SQ SCH ×2 (05:35→16:47)
[2022-05-02] MEDS ORDERED: D5% in Water 1,000 ML IVC PRN (09:24)
[2022-05-02] MEDS ORDERED: NON-FORMULARY MEDICATION 1 EACH EACH (Cyclosporine [Restasis] 1 EACH Droperette) OP SCH (09:24)
[2022-05-02] MEDS ORDERED: *HR* HYDROcodone/Acet 5/325 mg TABLET PO PRN (09:24)
[2022-05-02] MEDS ORDERED: Naloxone 0.4 MG/ML INJ IVP PRN (09:24)
[2022-05-02] MEDS ORDERED: *HR* Labetalol 20 MG/4 ML SYRINGE IVP PRN (09:24)
[2022-05-02] MEDS ORDERED: *HR* OxyCODONE Immed Rel 5 MG TABLET PO PRN (09:24)
[2022-05-02] MEDS ORDERED: NON-FORMULARY MEDICATION 1 EACH EACH (Calcium Citrate 200 MG Tablet) PO SCH (09:24)
[2022-05-02] MEDS ORDERED: Levalbuterol Neb 0.63 MG/3 ML IH PRN ×2 (09:24→13:45)
[2022-05-02] MEDS ORDERED: Dextrose Gel 15 GM/37.5 ML TUBE PO PRN ×2 (09:24)
[2022-05-02] MEDS ORDERED: *HR* Dextrose 50 % in Water (Syg) 50 ML SYRINGE IVP PRN (09:24)
[2022-05-02] MEDS ORDERED: Ondansetron 4 MG/2 ML VIAL IVP PRN (09:24)
[2022-05-02] MEDS ORDERED: Acetaminophen 325 MG TABLET PO PRN (09:24)
[2022-05-02] MEDS: Ringers Solution, Lactated 1,000 ML IVC SCH (09:27)
[2022-05-02] MEDS ORDERED: Vancomycin 1,250 MG/262.5 ML IV.SOLN IVPB ONE (10:11)
[2022-05-02] MEDS: Insulin LISPRO 300 UNITS/3 ML VIAL SUBQ SCH ×5 (10:18→20:14)
[2022-05-02] MEDS: Vitamin B Complex/Vit C/Vit E 1 EACH TABLET PO SCH (10:24)
[2022-05-02] MEDS: Furosemide 20 MG TABLET PO SCH (10:24)
[2022-05-02] MEDS: Cholecalciferol (D-3) 1,000 UNIT (25MCG) TABLET PO SCH (10:24)
[2022-05-02] MEDS: Spironolactone 12.5 MG TABLET PO SCH (10:24)
[2022-05-02] MEDS: Aspirin Enteric Coated 81 MG Tablet PO SCH (10:24)
[2022-05-02] MEDS: Magnesium Oxide 400 MG TABLET PO SCH (10:24)
[2022-05-02] MEDS: Isosorbide MONOnitrate (24 HR) 30 MG TAB.ER.24H PO SCH (10:24)
[2022-05-02] MEDS: *HR* Metoprolol 5 MG/5 ML VIAL IVP SCH ×2 (10:24→11:11)
[2022-05-02] MEDS: CeFAZolin 2 GM/120 ML BAG IVPB SCH ×2 (10:39→16:47)
[2022-05-02 15:22] LABS: Basophils % 0.6 %; Eosinophils % 1.3 %; Immature Granulocytes % 0.3 % (0-4); Mean Corpuscular Volume 90.9 fL (83.0-100.0); Red Cell Distribution Width 15.3 % (11.5-14.5)
[2022-05-02 15:24] LABS: Eosinophils # 0.1 K/mcL (0.0-0.6); Hematocrit 31.1 % (37.5-50.1); Hemoglobin 10.1 g/dL (12.9-16.9); Immature Platelets 1.9 % (1.1-6.1); Lymphocytes # 0.8 K/mcL (0.6-4.6); Lymphocytes % 11.8 %; Mean Corpuscular HGB Conc 32.5 g/dL (31.6-35.5); Mean Corpuscular Hemoglobin 29.5 pg (28.0-33.3); Mean Platelet Volume 9.8 fL (9.4-12.4); Monocytes # 0.9 K/mcL (0.0-1.3); Monocytes % 12.6 %; Neutrophils # 5.1 K/mcL (1.6-8.9); Red Blood Count 3.42 M/mcL (4.19-5.50); Segmented Neutrophils % 73.4 %
[2022-05-02 15:25] LABS: Platelet Count 91 K/mcL (140-400)
[2022-05-02 16:18] LABS: BUN/Creatinine Ratio 18 (6-26); Blood Urea Nitrogen 21 mg/dL (8-23); Calcium 7.8 mg/dL (8.6-10.3); Carbon Dioxide 20 mEq/L (23-29); Chloride 110 mEq/L (98-107); Glucose 266 mg/dL (70-105); Osmolality,Calculated 298 (280-300); Potassium 5.2 mEq/L (3.5-5.1); Sodium 138 mEq/L (136-145); eGFR For African Americans > 60 (> 60); eGFR For Non-African Americans 59 (> 60)
[2022-05-02] MEDS: Albumin 25% 25gram/100mL 25 GM/100 ML IV.SOLN IVC SCH ×3 (17:59→22:00)
[2022-05-02] MEDS: *HR* Digoxin 0.125 MG TABLET PO SCH (17:59)
[2022-05-02] MEDS: Cyclosporine [Restasis] 1 EACH Droperette OP SCH (20:00)
[2022-05-03] MEDS: Albumin 25% 25gram/100mL 25 GM/100 ML IV.SOLN IVC SCH
[2022-05-03] MEDS: *HR* Heparin 5,000 UNIT/ML VIAL SQ SCH (05:55)
[2022-05-03 06:06] LABS: Basophils % 0.3 %; Eosinophils # 0.1 K/mcL (0.0-0.6); Eosinophils % 1.8 %; Hematocrit 23.5 % (37.5-50.1); Immature Granulocytes % 0.3 % (0-4); Lymphocytes # 0.5 K/mcL (0.6-4.6); Lymphocytes % 13.1 %; Mean Corpuscular HGB Conc 32.3 g/dL (31.6-35.5); Mean Corpuscular Hemoglobin 29.5 pg (28.0-33.3); Mean Corpuscular Volume 91.1 fL (83.0-100.0); Mean Platelet Volume 9.9 fL (9.4-12.4); Monocytes # 0.6 K/mcL (0.0-1.3); Monocytes % 13.8 %; Neutrophils # 2.8 K/mcL (1.6-8.9); Red Blood Count 2.58 M/mcL (4.19-5.50); Red Cell Distribution Width 15.4 % (11.5-14.5); Segmented Neutrophils % 70.7 %
[2022-05-03 06:08] LABS: Hemoglobin 7.6 g/dL (12.9-16.9); Platelet Count 51 K/mcL (140-400)
[2022-05-03 06:16] LABS: Platelet Estimate Decreased (Normal)
[2022-05-03 06:28] LABS: BUN/Creatinine Ratio 18 (6-26); Blood Urea Nitrogen 21 mg/dL (8-23); Calcium 8.1 mg/dL (8.6-10.3); Carbon Dioxide 26 mEq/L (23-29); Chloride 106 mEq/L (98-107); Glucose 164 mg/dL (70-105); Osmolality,Calculated 293 (280-300); Potassium 4.3 mEq/L (3.5-5.1); Sodium 138 mEq/L (136-145); eGFR For African Americans > 60 (> 60); eGFR For Non-African Americans 57 (> 60)
[2022-05-03] MEDS: Isosorbide MONOnitrate (24 HR) 30 MG TAB.ER.24H PO SCH (09:19)
[2022-05-03] MEDS: Cholecalciferol (D-3) 1,000 UNIT (25MCG) TABLET PO SCH (09:20)
[2022-05-03] MEDS: Furosemide 20 MG TABLET PO SCH (09:20)
[2022-05-03] MEDS: Spironolactone 12.5 MG TABLET PO SCH (09:20)
[2022-05-03] MEDS: Magnesium Oxide 400 MG TABLET PO SCH (09:20)
[2022-05-03] MEDS: Vitamin B Complex/Vit C/Vit E 1 EACH TABLET PO SCH (09:20)
[2022-05-03] MEDS: Aspirin Enteric Coated 81 MG Tablet PO SCH (09:20)
[2022-05-03] MEDS: Insulin LISPRO 300 UNITS/3 ML VIAL SUBQ SCH ×4 (09:28→20:33)
[2022-05-03] MEDS: Cyclosporine [Restasis] 1 EACH Droperette OP SCH ×2 (10:54→20:35)
[2022-05-03] MEDS ORDERED: 0.9 % Sodium Chloride 250 ML ONE (14:47)
[2022-05-04] MEDS: Vitamin B Complex/Vit C/Vit E 1 EACH TABLET PO SCH (08:49)
[2022-05-04] MEDS: Magnesium Oxide 400 MG TABLET PO SCH (08:49)
[2022-05-04] MEDS: Spironolactone 12.5 MG TABLET PO SCH (08:49)
[2022-05-04] MEDS: Aspirin Enteric Coated 81 MG Tablet PO SCH (08:49)
[2022-05-04] MEDS: Furosemide 20 MG TABLET PO SCH (08:49)
[2022-05-04] MEDS: Insulin LISPRO 300 UNITS/3 ML VIAL SUBQ SCH ×4 (08:50→19:17)
[2022-05-04] MEDS: Cholecalciferol (D-3) 1,000 UNIT (25MCG) TABLET PO SCH (08:50)
[2022-05-04] MEDS: Cyclosporine [Restasis] 1 EACH Droperette OP SCH ×2 (08:56→19:17)
[2022-05-04] MEDS: Isosorbide MONOnitrate (24 HR) 30 MG TAB.ER.24H PO SCH (08:56)
[2022-05-04 09:33] LABS: Basophils % 0.1 %
[2022-05-04 09:35] LABS: Eosinophils # 0.1 K/mcL (0.0-0.6); Eosinophils % 1.3 %; Hemoglobin 9.4 g/dL (12.9-16.9); Immature Granulocytes % 0.4 % (0-4); Immature Platelets 3.3 % (1.1-6.1); Lymphocytes # 0.5 K/mcL (0.6-4.6); Lymphocytes % 6.1 %; Mean Corpuscular HGB Conc 32.4 g/dL (31.6-35.5); Mean Corpuscular Hemoglobin 29.6 pg (28.0-33.3); Mean Corpuscular Volume 91.2 fL (83.0-100.0); Mean Platelet Volume 10.3 fL (9.4-12.4); Monocytes # 0.7 K/mcL (0.0-1.3); Monocytes % 9.7 %; Neutrophils # 6.1 K/mcL (1.6-8.9); Red Blood Count 3.18 M/mcL (4.19-5.50); Red Cell Distribution Width 14.6 % (11.5-14.5); Segmented Neutrophils % 82.4 %; White Blood Count 7.4 K/mcL (4.3-11.1)
[2022-05-04 09:48] LABS: BUN/Creatinine Ratio 17 (6-26); Blood Urea Nitrogen 17 mg/dL (8-23); Calcium 8.1 mg/dL (8.6-10.3); Carbon Dioxide 23 mEq/L (23-29); Chloride 103 mEq/L (98-107); Glucose 236 mg/dL (70-105); Osmolality,Calculated 285 (280-300); Sodium 133 mEq/L (136-145); eGFR For African Americans > 60 (> 60); eGFR For Non-African Americans > 60 (> 60)
[2022-05-04 10:06] LABS: Platelet Count 73 K/mcL (140-400)
[2022-05-04 16:08] LABS: Adenovirus Not Detected (Not Detect); Bordetella Pertussis Not Detected (Not Detect); Chlamydophila pneumoniae Not Detected (Not Detect); Coronavirus 229E Not Detected (Not Detect); Coronavirus HKU1 Not Detected (Not Detect); Coronavirus NL63 Not Detected (Not Detect); Coronavirus OC43 Not Detected (Not Detect); Human Metapneumovirus Not Detected (Not Detect); Human Rhinovirus/Enterovirus Not Detected (Not Detect); Influenza A Subtype 2009 H1 Not Detected (Not Detect); Influenza B Not Detected (Not Detect); Mycoplasma pneumoniae Not Detected (Not Detect); Parainfluenza Virus 1 Not Detected (Not Detect); Parainfluenza Virus 2 Not Detected (Not Detect); Parainfluenza Virus 3 Not Detected (Not Detect); Parainfluenza Virus 4 Not Detected (Not Detect); Respiratory Syncytial Virus Not Detected (Not Detect); SARS-CoV-2 Not Detected (Not Detect)
[2022-05-04] MEDS: *HR* Digoxin 0.125 MG TABLET PO SCH (17:27)
[2022-05-04 18:30] VITALS: PULSE 99; TEMP 99.5
[2022-05-04 19:50] VITALS: BP 123/56; O2SAT 98
== END 2022-05-04 20:03 | DRG 252 ==
LOC: SAMDAY 08:52 → 2NNU 11:31
PROVIDERS: ADMIT Surgery; ATTEND Surgery